=== PATIENT | female | born 1945 | race Caucasian/White ===

== ENCOUNTER → 2017-07-08 14:41 | Outpatient (CLI) | payer MEDICARE, OTHER, SELFPAY ==
--- NOTE | 2017-07-08 14:45 | BI_ITS ---
MAMMOGRAPHY - BILATERAL SCREENING REASON FOR EXAM: Female, 72 years old. Routine annual screening examination. PERTINENT HISTORY: Sister with breast cancer. Grandmother with breast cancer. TECHNIQUE: Digital bilateral breast sandra (3D mammographic acquisition) in the CC and MLO projections. 2-D mediolateral oblique (MLO) and craniocaudad (CC) views of both breasts were obtained. CAD: Full Field Digital Mammography with Computer Added Detection was performed. COMPARISON: Comparison is made with prior study dated June 10, 2016 and June 03, 2015. FINDINGS: Breast Composition: There are scattered areas of fibroglandular density. There are no dominant masses or suspicious calcifications. Stable 7.4 mm x 7.5 mm well-defined nodule in the slightly inferior and medial retroareolar region. This was demonstrated to be a small cyst on prior sonogram of the left breast dated June 06, 2015. Stable benign-appearing bilateral axillary lymph nodes. No other significant abnormalities are identified. There has been no significant change since the prior study. BI/SCREENING MAMM (CAD), BILAT IMPRESSION: Stable bilateral screening mammogram. Yearly follow-up mammogram recommended. (A) ASSESSMENT CATEGORY: BIRADS Category 2: Benign. A letter regarding these results will be sent to the patient by the facility within 30 days. Approximately 10% of breast cancers are not detected by mammography. A normal mammogram should not delay biopsy of a clinically suspicious abnormality. [id number] Electronically Signed: Eliot Kerr MD at 8:26 EDT Tel [phone], Service support ,
== END ==
PROVIDERS: Family Provider Family Medicine; PCP Family Medicine; Visit Provider Family Medicine
DX: Z12.31 Encounter for screening mammogram for malignant neoplasm of breast (principal)
CPT/HCPCS: 77063; 77067

== ENCOUNTER → 2017-07-09 10:54 | Outpatient (CLI) | payer MEDICARE, OTHER, SELFPAY ==
[2017-07-09 12:34] LABS: Absolute Lymphocyte Count 4.46 X10^3/ul (0.83-4.51); Absolute Neutrophil Count 4.8 X10^3/uL (2.0-7.7); Basophil# 0.11 X10^3/uL; Eosinophil# 0.62 X10^3/uL; Eosinophils% 5.7 % (0-5); Hematocrit 42.6 % (37-47); Hemoglobin 13.4 g/dl (12.0-15.0); Lymphocyte # 4.46 X10^3/ul (4.0); Lymphocyte % 41.1 % (19-41); Mean Corp Hgb Conc 31.5 g/gl (32-36); Mean Corpuscular Hgb 25.9 pg (27.0-32.0); Mean Corpuscular Volume 82.4 fL (81-99); Mean Platelet Vol. 11.7 fl (6.2-12.0); Monocyte# 0.78 X10^3/uL; Monocyte% 7.2 % (0-10); Neutrophil # 4.84 X10^3/uL (2.7-7.7); Neutrophil % 44.7 % (47-70); Platelet Count 283 K/mm3 (150-450); RBC Distribution Width CV 13.8 % (11.6-14.6); Red Blood Count 5.17 M/mm3 (4.2-5.4); White Blood Count 10.8 K/mm3 (4.4-11.0)
[2017-07-09 12:40] LABS: POSITIVE COUNT NO; POSITIVE DIFFERENTIAL NO; POSITIVE MORPHOLOGY NO
[2017-07-09 12:44] LABS: Microalbumin,Random Urine 8.2 mg/L (NO RANGE EST.); Microalbumin:Creatinine Ratio 5.2 mg/g CRE (<30 mg/g CRE)
[2017-07-09 12:47] LABS: ALB/GLOB Ratio 1.1 RATIO (0.9-2.4); AST(SGOT) 24 U/L (15-37); Alanine Aminotransfer ALT/SGPT 36 U/L (13-56); Albumin, Serum 3.7 g/dL (3.2-5.0); Alkaline Phosphatase 85 U/L (45-117); Anion Gap 9 (5-15); BUN 15 mg/dL (7-18); BUN/Creat Ratio 23.7 RATIO (10-20); Chloride 105 mmol/L (98-107); Cholesterol 137 mg/dL (200); Creatinine, Serum 0.63 mg/dL (0.55-1.02); EST Glomerular Filtration Rate 98 mL/min (>60); Est Glom Filt Rate - Afr Amer 119 mL/min (>60); Globulin 3.4 g/dL (2.2-4.2); Glucose 128 mg/dL (74-106); High Density Lipoprotein 53 mg/dL; Potassium 4.7 mmol/L (3.5-5.1); Protein, Total 7.1 g/dL (6.4-8.2); Sodium Level 141 mmol/L (136-145); T4 Free Direct 1.12 ng/dL (0.76-1.46); Thyroid Stim Hormone (TSH) 2.93 uIU/mL (0.358-3.74); Triglycerides 124 mg/dL; Very Low Density Lipoprotein 25 mg/dL (5-40)
[2017-07-09 16:15] LABS: Hemoglobin A1c 7.4 % (4.2-6.3)
== END ==
PROVIDERS: Family Provider Family Medicine; PCP Family Medicine; Visit Provider Family Medicine
DX: E11.9 Type 2 diabetes mellitus without complications (principal); I10 Essential (primary) hypertension; K76.0 Fatty (change of) liver, not elsewhere classified; R80.9 Proteinuria, unspecified; E03.9 Hypothyroidism, unspecified
CPT/HCPCS: 36415; 80053; 80061; 82043; 82570; 83036; 84439; 84443; 85025

== ENCOUNTER → 2017-07-28 13:13 | Outpatient (CLI) | payer MEDICARE, OTHER, SELFPAY | PROVIDERS: Family Provider Family Medicine; PCP Family Medicine; Visit Provider Family Medicine | DX: N30.01 Acute cystitis with hematuria (principal) | CPT/HCPCS: 87077; 87086; 87088; 87186 ==

== ENCOUNTER → 2017-09-21 14:11 | Outpatient (CLI) | payer MEDICARE, OTHER, SELFPAY ==
--- NOTE | 2017-09-21 14:19 | RAD_ITS ---
STUDY: X-RAY - ABDOMEN/PELVIS REASON FOR EXAM: Female, 72 years old. Left lower quadrant abdominal pain TECHNIQUE: Two AP supine views of the abdomen and pelvis. COMPARISON: None. FINDINGS: Normal visualized lung bases. There is an unremarkable bowel gas pattern. There is no demonstrated free abdominal air. The visualized liver, spleen and kidneys are grossly normal in size and morphology. Normal soft tissue structures. The surgical clips seen in the right upper quadrant. There are diffuse degenerative changes of the visualized lumbar spine. RAD/Abdomen Single View IMPRESSION: Normal x-ray examination of the abdomen and pelvis. Electronically Signed: Trey Leone DO at 14:17 EDT Tel , Service support ,
[2017-09-21 15:55] LABS: Anion Gap 10 (5-15); BUN 10 mg/dL (7-18); BUN/Creat Ratio 13.1 RATIO (10-20); Chloride 104 mmol/L (98-107); Creatinine, Serum 0.76 mg/dL (0.55-1.02); EST Glomerular Filtration Rate 79 mL/min (>60); Est Glom Filt Rate - Afr Amer 96 mL/min (>60); Glucose 126 mg/dL (74-106); Lipase 91 U/L (73-393); Potassium 4.3 mmol/L (3.5-5.1); Sodium Level 142 mmol/L (136-145)
[2017-09-21 16:11] LABS: Absolute Lymphocyte Count 5.44 X10^3/ul (0.83-4.51); Absolute Neutrophil Count 5.7 X10^3/uL (2.0-7.7); Basophil# 0.04 X10^3/uL; Basophil% 0.3 % (0-1); Eosinophil# 1.97 X10^3/uL; Eosinophils% 13.9 % (0-5); Hematocrit 41.9 % (37-47); Hemoglobin 13.1 g/dl (12.0-15.0); Lymphocyte # 5.44 X10^3/ul (4.0); Lymphocyte % 38.4 % (19-41); Mean Corp Hgb Conc 31.3 g/gl (32-36); Mean Corpuscular Hgb 25.7 pg (27.0-32.0); Mean Corpuscular Volume 82.2 fL (81-99); Mean Platelet Vol. 11.6 fl (6.2-12.0); Monocyte# 0.99 X10^3/uL; Neutrophil # 5.66 X10^3/uL (2.7-7.7); Neutrophil % 39.9 % (47-70); Platelet Count 327 K/mm3 (150-450); RBC Distribution Width CV 14.3 % (11.6-14.6); RBC Distribution Width SD 42.2 fl (35.1-43.9); White Blood Count 14.2 K/mm3 (4.4-11.0)
[2017-09-21 16:12] LABS: Differential Indicated SCAN CRITERIA MET; POSITIVE COUNT NO; POSITIVE DIFFERENTIAL YES; POSITIVE MORPHOLOGY NO
[2017-09-21 16:41] LABS: Platelet Estimate ADEQUATE (ADEQ); Red Cell Morphology NORM C+C NORMAL (NORM C&C)
[2017-09-22 14:20] LABS: Pathologist Review Reviewed
== END ==
PROVIDERS: Family Provider Family Medicine; PCP Family Medicine; Visit Provider Family Medicine
DX: R10.814 Left lower quadrant abdominal tenderness (principal)
CPT/HCPCS: 36415; 74018; 80048; 83690; 85025

== ENCOUNTER → 2018-04-14 08:55 | Outpatient (CLI) | payer MEDICARE, OTHER, SELFPAY ==
--- NOTE | 2018-04-14 08:59 | US_ITS ---
STUDY: ULTRASOUND BREAST - RIGHT REASON FOR EXAM: Female, 73 years old. Abnormal screening mammogram. TECHNIQUE: Axial and longitudinal images of the RIGHT breast were performed with a high resolution ultrasound transducer. COMPARISON: Comparison is made with prior mammogram done earlier in the day. FINDINGS: RIGHT Breast: There is an 8 mm x 8 mm x 4 mm cyst at the 12:00 position of the breast. There is also evidence of dilated subareolar ducts. IMPRESSION: 8mm by 8mm by 4 mm cyst at the 12:00 position of the breast. Dilated subareolar ducts. ASSESSMENT CATEGORY: BIRADS Category 2: Benign. A letter regarding these results will be sent to the patient by the facility within 30 days. Electronically Signed: Eliot Usha, at 11:27 EST , Service support , STUDY: ULTRASOUND BREAST - LEFT REASON FOR EXAM: Female, 73 years old. Palpable lump left breast. TECHNIQUE: Axial and longitudinal images of the LEFT breast were performed with a high resolution ultrasound transducer. COMPARISON: Comparison is made with prior mammogram done earlier in the day. FINDINGS: LEFT Breast: The palpable abnormality corresponds to a 1.2 cm x 1.1 cm x 0.6 cm solid/cystic nodule at the 2:00 position of the breast at 12 cm from the nipple. A biopsy is recommended. This also evidence of a 4 mm x 3 mm x 3 mm cyst in the retroareolar 6:00 position of the breast. There is also evidence of a 6 mm x 7 mm x 4 mm cyst at the 9:00 position of the breast at 1 cm from the nipple. US/Breast Limited Unilateral IMPRESSION: The palpable abnormality corresponds to a 1.2 cm x 1.1 cm x 0.6 cm solid/cystic nodule at the 2:00 position of the breast at 12 cm from nipple. A biopsy is recommended. 2 small cysts are also seen. ASSESSMENT CATEGORY: BIRADS Category 4: Suspicious - Biopsy Should Be Considered. A letter regarding these results will be sent to the patient by the facility within 30 days. Electronically Signed: Eliot Kerr, at 11:29 EST , Service support ,
--- NOTE | 2018-04-14 08:59 | BI_ITS ---
MAMMOGRAPHY - BILATERAL DIAGNOSTIC REASON FOR EXAM: Female, 73 years old. Left breast lump. PERTINENT HISTORY: Sister with breast cancer. Grandmother with breast cancer. TECHNIQUE: Digital bilateral breast sandra (3D mammographic acquisition) in the CC and MLO projections. 2-D mediolateral oblique (MLO) and craniocaudad (CC) views of both breasts were obtained. CAD: Full Field Digital Mammography with Computer Added Detection was performed. COMPARISON: Comparison is made with prior study dated July 08, 2017 and June 10, 2016. FINDINGS: Breast Composition: There are scattered areas of fibroglandular density. 6.7 mm x 10 mm well-defined nodule in the retroareolar region of the right breast. Correlation with ultrasound is recommended. The palpable abnormality corresponds to an inhomogeneous 1.8 cm x 1.1 cm nodule in the anterior superior lateral portion of the breast. This was not present on prior study. Correlation with ultrasound is recommended. No other significant abnormalities are identified. BI/DIAG MAMM W/CAD, BILAT IMPRESSION: Well-defined nodular density in the retroareolar region of the right breast as described. Heterogeneous nodule seen in the anterior superior lateral aspect of the left breast corresponding to the palpable abnormality. Correlation with ultrasound is recommended. ASSESSMENT CATEGORY: BIRADS Category 0: Incomplete. Need additional imaging evaluation. A letter regarding these results will be sent to the patient by the facility within 30 days. Approximately 10% of breast cancers are not detected by mammography. A normal mammogram should not delay biopsy of a clinically suspicious abnormality. Electronically Signed: Eliot Kerr, at 11:32 EST , Service support ,
== END ==
PROVIDERS: Family Provider Family Medicine; PCP Family Medicine; Referring Provider Family Medicine; Visit Provider Family Medicine
DX: Z12.31 Encounter for screening mammogram for malignant neoplasm of breast (principal); N63.21 Unspecified lump in the left breast, upper outer quadrant
CPT/HCPCS: 76642; 77062; 77063; 77066; G0279

== ENCOUNTER → 2018-04-19 14:50 | Outpatient (CLI) | payer MEDICARE, OTHER, SELFPAY ==
--- NOTE | 2018-04-19 | BRBX_PTH ---
PATIENT: SANTIAGO ZURITA LOC: [facility] U#:[id number] AGE/SX: 79/F ROOM: RE04/19/[address]: Dr. Susan Lawler MD : 1945 BED: DIS: SPEC #: [id number] RECD: 04/19/18 14:48 STATUS: KINGA DIXIE #: [id number] ESTEFANI: 04/19/18 00:[address]: Susan Lawler DEPT: SURGICAL PATHOLOGY RECD BY: Tylor Neville ENTERED: 04/19/18 14:53 SP TYPE: BREAST BX OTHR DR: Dr. Jovanni Acosta, DO Tissues: Left breast, NOS Procedures: Surgery Specimen Level IV HEADER OPERATION: Ultrasound-guided needle core biopsy left breast PRE-OP DIAGNOSIS: Mass of left breast TISSUE SUBMITTED: Left breast biopsy 2 o'clock, 12 cm from nipple FIXATION TIME: 11 hours MICROSCOPIC DIAGNOSIS Left breast mass, ultrasound-guided core biopsy: Fibrosis, fat necrosis and associated mild chronic inflammation. Fibrocystic change. No evidence of malignancy. See comment. AM:debbie 04/20/18 COMMENT The findings are suggestive of ruptured cyst with associated reparative and reactive change. Clinical correlation is suggested. MICROSCOPIC DESCRIPTION Slides are reviewed. GROSS DESCRIPTION Received in fixative is one container labeled with the patient's name and designated left breast. The specimen consists of multiple fragments of vega-yellow fibroadipose tissue that in aggregate measure 2.5 x 0.5 x 0.1 cm. The entire specimen is submitted in one cassette. / SJ:debbie 04/19/18 TC:3 CPT: 33714
[2018-04-19 09:00] VITALS: BMI 35.6
== END ==
PROVIDERS: Family Provider Family Medicine; PCP Family Medicine; Referring Provider Surgery; Visit Provider Surgery
DX: N63.20 Unspecified lump in the left breast, unspecified quadrant (principal)
CPT/HCPCS: 88305

== ENCOUNTER → 2018-06-23 13:52 | Outpatient (CLI) | payer MEDICARE, OTHER, SELFPAY ==
[2018-04-19 09:00] VITALS: BMI 35.6
--- NOTE | 2018-06-23 14:05 | MRI_ITS ---
STUDY: MRI LUMBAR SPINE WITHOUT CONTRAST REASON FOR EXAM: Female, 73 years old. Low back pain, bilateral radiculopathy TECHNIQUE: Standardized fat and water weighted pulse sequences were obtained in the sagittal and axial planes. COMPARISON: 01/26/2015 MRI lumbar spine FINDINGS: T12-L1: Normal endplates. Normal disc height, hydration and morphology. Normal bilateral facet joints. Normal central canal and bilateral lateral recesses. Normal bilateral intervertebral neural foramina. Normal lumbar lordosis. There is no substantial scoliosis. Normal conus medullaris that terminates at the L1-2: Normal endplates. Normal disc height, hydration and morphology. Mild facet spondylosis Normal central canal and bilateral lateral recesses. Normal bilateral intervertebral neural foramina. L2-3: There is enlarging posterior bulging annulus with new small central subligamentous disc protrusion. There is worsening moderate central canal stenosis with compression on the thecal sac. There is ligamentous hypertrophy and facet degenerative changes. There is borderline right and left foraminal stenosis unchanged L3-4: The stable disc space narrowing with mild broad-based posterior bulging annulus. There is stable mild to moderate central canal stenosis. There is ligamentous hypertrophy and facet degenerative changes. There may be congenitally small central canal. There is borderline right foraminal stenosis unchanged. There is borderline superior left foraminal stenosis unchanged L4-5: There stable posterior bulging annulus. There is stable mild to moderate central canal stenosis. There is moderate facet degenerative change and ligamentous hypertrophy. There may be congenitally small central canal. There is no left foraminal stenosis. There is stable borderline right foraminal stenosis L5-S1: There is disc space narrowing with posterior bulging annulus with no significant central canal stenosis. There are moderate facet degenerative changes and mild ligamentous hypertrophy. There is Stable mild bilateral foraminal stenosis. On prior exam there is likely small inferior disc extrusion which is not seen on this study. Normal visualized sacral ala. Normal visualized paraspinous soft tissue structures. MRI/Spine Lumbar (Routine) IMPRESSION: enlarging posterior bulging annulus at L2-L3 with new small central subligamentous disc protrusion. There is worsening moderate central canal stenosis with compression on the thecal sac. There is ligamentous hypertrophy and facet degenerative changes. There is borderline right and left foraminal stenosis unchanged The spondylosis changes at the other disc levels appear similar other than resolution of a likely small inferior disc extrusion at L5-S1 Electronically Signed: Alexsander Fowler, at 17:34 EDT Tel , Service support ,
== END ==
PROVIDERS: Family Provider Family Medicine; PCP Family Medicine; Referring Provider Anesthesiology Pain Medicine; Visit Provider Anesthesiology Pain Medicine
DX: M51.37 Other intervertebral disc degeneration, lumbosacral region (principal); M54.17 Radiculopathy, lumbosacral region
CPT/HCPCS: 72148

== ENCOUNTER → 2018-07-20 | Outpatient (CLI) | payer MEDICARE, OTHER, SELFPAY ==
[2018-04-19 09:00] VITALS: BMI 35.6
--- NOTE | 2018-07-20 14:06 | BI_ITS ---
MAMMOGRAPHY - UNILATERAL DIAGNOSTIC: LEFT BREAST REASON FOR EXAM: Female, 73 years old. 3 month follow-up following left ultrasound-guided breast biopsy. PERTINENT HISTORY: Sister with breast cancer. Grandmother with breast cancer. TECHNIQUE: Digital unilateral breast sandra (3D mammographic acquisition) in the CC and MLO projections. 2-D mediolateral oblique (MLO) and craniocaudad (CC) views of both breasts were obtained. CAD: Full Field Digital Mammography with Computer Added Detection was performed. COMPARISON: Comparison is made with prior study dated April 06, 2018. FINDINGS: Breast Composition: There are scattered areas of fibroglandular density. There are no dominant masses or suspicious calcifications. Stable 7.9 mm x 8 mm well-defined nodule in the medial retroareolar region of the left breast. A tissue clip marker is seen within a small nodular density in the superior lateral aspect of the left breast at the recent biopsy site. No other significant abnormalities are identified. BI/DIAG MAMM W/CAD, UNILAT IMPRESSION: Stable unilateral diagnostic mammogram. One year follow-up mammogram recommended. (A) ASSESSMENT CATEGORY: BIRADS Category 2: Benign. A letter regarding these results will be sent to the patient by the facility within 30 days. Approximately 10% of breast cancers are not detected by mammography. A normal mammogram should not delay biopsy of a clinically suspicious abnormality. Electronically Signed: Eliot Kerr, at 8:12 EDT , Service support ,
--- NOTE | 2018-07-20 14:07 | US_ITS ---
STUDY: ULTRASOUND BREAST - LEFT REASON FOR EXAM: Female, 73 years old. 3 month follow-up for breast biopsy. TECHNIQUE: Axial and longitudinal images of the LEFT breast were performed with a high resolution ultrasound transducer. COMPARISON: Comparison is made with prior ultrasound of the breasts dated April 14, 2018. FINDINGS: LEFT Breast: Since prior examination, the patient underwent ultrasound-guided breast biopsy of the nodular density at the 2:00 position of the breast at 12 cm from the nipple. The cystic component has resolved. A tissue clip marker is seen within the 1.8 cm x 1.7 cm x 0.5 cm hypoechoic nodule. US/Breast Limited Unilateral IMPRESSION: Status post left breast biopsy with clip placement. ASSESSMENT CATEGORY: BIRADS Category 2: Benign. A letter regarding these results will be sent to the patient by the facility within 30 days. Electronically Signed: Eliot Kerr, at 15:49 EDT , Service support ,
== END | disposition home or self-care (01) ==
PROVIDERS: Family Provider Family Medicine; PCP Family Medicine; Referring Provider Family Medicine; Visit Provider Surgery
DX: N63.21 Unspecified lump in the left breast, upper outer quadrant (principal); Z12.31 Encounter for screening mammogram for malignant neoplasm of breast
CPT/HCPCS: 76642; 77061; 77065; G0279

== ENCOUNTER → 2018-07-25 07:13 | Outpatient (CLI) | payer MEDICARE, OTHER, SELFPAY ==
[2018-04-19 09:00] VITALS: BMI 35.6
[2018-07-25 10:12] LABS: Absolute Lymphocyte Count 4.51 X10^3/ul (0.83-4.51); Absolute Neutrophil Count 5.1 X10^3/uL (2.0-7.7); Basophil# 0.07 X10^3/uL; Basophil% 0.6 % (0-1); Eosinophil# 0.63 X10^3/uL; Eosinophils% 5.7 % (0-5); Hematocrit 42.9 % (37-47); Hemoglobin 13.1 g/dl (12.0-15.0); Lymphocyte # 4.51 X10^3/ul (4.0); Lymphocyte % 40.7 % (19-41); Mean Corp Hgb Conc 30.5 g/gl (32-36); Mean Corpuscular Hgb 24.2 pg (27.0-32.0); Mean Corpuscular Volume 79.3 fL (81-99); Mean Platelet Vol. 11.9 fl (6.2-12.0); Monocyte# 0.79 X10^3/uL; Monocyte% 7.1 % (0-10); Neutrophil # 5.07 X10^3/uL (2.7-7.7); Neutrophil % 45.7 % (47-70); Platelet Count 276 K/mm3 (150-450); RBC Distribution Width CV 15.1 % (11.6-14.6); RBC Distribution Width SD 43.3 fl (35.1-43.9); Red Blood Count 5.41 M/mm3 (4.2-5.4); White Blood Count 11.1 K/mm3 (4.4-11.0)
[2018-07-25 10:24] LABS: Hemoglobin A1c 7.7 % (4.2-6.3)
[2018-07-25 10:30] LABS: POSITIVE COUNT NO; POSITIVE DIFFERENTIAL NO; POSITIVE MORPHOLOGY NO
[2018-07-25 10:33] LABS: ALB/GLOB Ratio 0.9 RATIO (0.9-2.4); AST(SGOT) 16 U/L (15-37); Alanine Aminotransfer ALT/SGPT 31 U/L (13-56); Albumin, Serum 3.5 g/dL (3.2-5.0); Alkaline Phosphatase 80 U/L (45-117); Anion Gap 8 (5-15); BUN 14 mg/dL (7-18); BUN/Creat Ratio 19.2 RATIO (10-20); Calcium,Total 9.9 mg/dL (8.5-10.1); Chloride 103 mmol/L (98-107); Cholesterol 142 mg/dL (200); Creatinine, Serum 0.73 mg/dL (0.55-1.02); EST Glomerular Filtration Rate 83 mL/min (>60); Est Glom Filt Rate - Afr Amer 101 mL/min (>60); Globulin 3.9 g/dL (2.2-4.2); Glucose 99 mg/dL (74-106); High Density Lipoprotein 56 mg/dL; Potassium 3.9 mmol/L (3.5-5.1); Protein, Total 7.4 g/dL (6.4-8.2); Sodium Level 139 mmol/L (136-145); T4 Free Direct 1.14 ng/dL (0.76-1.46); Thyroid Stim Hormone (TSH) 1.56 uIU/mL (0.358-3.74); Triglycerides 140 mg/dL; Very Low Density Lipoprotein 28 mg/dL (5-40)
[2018-07-25 10:53] LABS: Microalbumin,Random Urine < 5.0 mg/L (NO RANGE EST.)
== END ==
PROVIDERS: Family Provider Family Medicine; PCP Family Medicine; Referring Provider Family Medicine; Visit Provider Family Medicine
DX: E11.9 Type 2 diabetes mellitus without complications (principal); I10 Essential (primary) hypertension; E03.9 Hypothyroidism, unspecified
CPT/HCPCS: 36415; 80053; 80061; 82043; 82570; 83036; 84439; 84443; 85025

== ENCOUNTER → 2018-08-04 15:04 | Outpatient (CLI) | payer MEDICARE, OTHER, SELFPAY ==
[2018-04-19 09:00] VITALS: BMI 35.6
--- NOTE | 2018-08-04 15:08 | RAD_ITS ---
HISTORY: neck pain TECHNIQUE: Cervical spine 5 views Number of images including paperwork: 5 COMPARISON: None FINDINGS: VERTEBRAE: No acute fracture. VERTEBRAL ALIGNMENT: No traumatic subluxation. DISKS AND JOINTS: Disc heights are maintained. Small anterior osteophytes. Facet arthropathy. SOFT TISSUES: Unremarkable paraspinous soft tissues. RAD/Cerv Spine 4 or 5 Views IMPRESSION: 1. No acute osseous abnormality. 2. Degenerative changes. at 0625 Reported and signed by: Sue Lassiter MD Electronically Signed: Sue Lassiter MD at 6:24 EDT Tel , Service support ,
== END ==
PROVIDERS: Family Provider Family Medicine; PCP Family Medicine; Referring Provider Anesthesiology Pain Medicine; Visit Provider Anesthesiology Pain Medicine
DX: M54.2 Cervicalgia (principal)
CPT/HCPCS: 72050

== ENCOUNTER 2018-09-08 08:30 | Outpatient (RCR) | payer MEDICARE, OTHER, SELFPAY ==
[2018-04-19 09:00] VITALS: BMI 35.6
--- NOTE | 2018-08-12 09:00 | HP.PTEVAL_ITS ---
Patient's Visit Information SANTIAGO ZURITA is a 73 year old F referred to Physical Therapy by Abdirahman Alvarez MD with a diagnosis of RADICULOPATHY ,CERVICAL SPINE,CERVICAL DISC DEGENERATION. Date of Evaluation: 08/12/18 Physical Therapist: Kee Elliott, PT, Cert MDT, OCS - Visit Plan Frequency: 2x /Week Duration: 4 Weeks Plan: PT INTERVENTION MANUAL THERAPY CERVICAL TRACTION//STM,CERVICAL POSTURAL EX'S,MODALTIES - Subjective Findings: This 73 y/o female presents to physical therapy with neck pain and radicular symptoms. Patient has had neck pain 2 months. Symptoms left cervical radiates to left UT/shoulder. Aggravating factors sitting,turning cervical spine ,lifting gallon of milk,flexion/extension. Patient has parathesia/tingling in arms. C/O dizziness ,denies nausea/ PARR. Patient seen DR Alvarez recommended PT. Patient symptoms affect sleeping.Patient has h/o falls ,patient uses cane for gait . Patient has seen massage therapy. Patient also has h/o back pain and has received epidural injections .Patient pain affects housework tasks such as sweeping and ADLS'. Alleviating factors heat,tramadol.Patient symptoms affects QOL . SOCIAL: retired. VOCATION: - Pain Left Neck Pain Intensity (Out of 10): 6 Pain Intensity Range: 10 - Objective POSTURE: mild posture rounded shoulder. PALPATION: tender UT/levator/paraspinals. NEURO: c/o parathesia/tingling fingers,reflexes C5-6-7 1/3. AROM BUE : WFL. MMT: BUE grossly 4/5 ,shoulder 4-/5. CERVICAL ROM: flexion min loss,lateral flexion/rotaion mod loss ,extension mod/severe - Special Tests C/S Radiculapathy - Left Upper limb tension test: Negative C/S Radiculapathy - Right Upper limb tension test: Negative C/S Radiculapathy - Left Spurlings: Positive C/S Radiculapathy - Right Spurlings: Positive C/S Radiculapathy - Left Cervical distraction: Negative C/S Radiculapathy - Right Cervical distraction: Negative C/S Radiculapathy - Left Relief test: Negative C/S Radiculapathy - Right Relief test: Negative Sharp Festus: Negative Vertebral Artery Test: Negative Alar Ligament Test: Negative - Goals Goal 1:: Independant with HEP Goal Time Frame: 4-6 Weeks Goal 2:: Patient to be Independant with posture for ADL'S Goal Time Frame: 4-6 Weeks Goal 3:: Patient to decrease cervical pain and radiculopathy by 50 % to improve function. Goal Time Frame: 4-6 Weeks Goal 4:: Patient o improve cervical cervical ROM for function of recovery Goal Time Frame: 4-6 Weeks Goal 5:: Patient to improve neck owsestry score by 5 points or greater to improev QOL. Goal Time Frame: 4-6 Weeks - Rehabilitation Potential Physical Therapy Diagnosis: This patient has cervical pain with radiculopathy left UE possible stenosis with pain ,decrease Cervical ROM,impairs ADLS,and function thus beifit from skilled PT. Rehabilitation Potential: Good - Anticipated Interventions Patient/Client Instruction: Educate patient on: Condition, Plan of Care For the Purpose of:: To decrease pain, To increase ROM, To improve ability to perform ADL's, To increase tolerance to activity/condition/position, To improve ability of physical actions for home/community/work/leisure, To improve gait and locomotor functions, To improve health of tissue, To decrease soft tissue restriction, To improve ability to perform tasks related to life management Therapeutic Exercise to Include: Strength training, Postural training, Flexibilty training, Active ROM For the Purpose of:: To decrease pain, To increase ROM, To improve nutrient delivery to tissue, To improve muscle performance and motor function, To increase tolerance to activity/condition/position, To improve health of tissue, To decrease soft tissue restriction, To increase flexibility/ROM, To improve health and function, To improve ability to perform tasks related to life m anagement Manual Therapy Techniques to Include: Soft tissue mobilization Comment: CERVICAL TRACTION For the Purpose of:: To decrease pain, To increase ROM, To increase oxygenation perfusion, To improve health of tissue, To decrease soft tissue restriction, To increase flexibility/ROM TENS: Yes IF ES: Yes Cryotherapy (ice pack, ice massage): Yes Thermo therapy (hot pack): Yes Ultrasound (thermal/non thermal): Yes For the Purpose of:: To decrease pain, To increase ROM, To improve health of tissue, To decrease soft tissue restriction Thank you for the opportunity to evaluate your patient. For Medicare and Medicare HMO plans, please review the plan of care and approve it. It will need to be FAXED BACK to us at [phone] for Medicare purposes. For Medicare only, by signing this I certify the plan of care. Please let me know if there are questions or concerns regarding this plan of care. Physician Signature: Date:
--- NOTE | 2018-10-21 13:07 | HP.PT.NRP ---
HP - Discharge Summary (1) - Patient Information SANTIAGO ZURITA was seen in my office for initial evaluation on 08/12/18. The following Plan of Care was established for this patient: Initial Frequency: 2x /Week Initial Duration: 4 Weeks - Anticipated Interventions Patient/Client Instruction: Educate patient on: Condition, Plan of Care For the Purpose of:: To decrease pain, To increase ROM, To improve ability to perform ADL's, To increase tolerance to activity/condition/position, To improve ability of physical actions for home/community/work/leisure, To improve gait and locomotor functions, To improve health of tissue, To decrease soft tissue restriction, To improve ability to perform tasks related to life management Therapeutic Exercise to Include: Strength training, Postural training, Flexibilty training, Active ROM For the Purpose of:: To decrease pain, To increase ROM, To improve nutrient delivery to tissue, To improve muscle performance and motor function, To increase tolerance to activity/condition/position, To improve health of tissue, To decrease soft tissue restriction, To increase flexibility/ROM, To improve health and function, To improve ability to perform tasks related to life management Manual Therapy Techniques to Include: Soft tissue mobilization Comment: CERVICAL TRACTION For the Purpose of:: To decrease pain, To increase ROM, To increase oxygenation perfusion, To improve health of tissue, To decrease soft tissue restriction, To increase flexibility/ROM TENS: Yes IF ES: Yes Cryotherapy (ice pack, ice massage): Yes Thermo therapy (hot pack): Yes Ultrasound (thermal/non thermal): Yes For the Purpose of:: To decrease pain, To increase ROM, To improve health of tissue, To decrease soft tissue restriction This patient was last seen in our office 09/08/18. Pertinent comments regarding their Physical therapy will appear below: Patient seen for PT for CERVICAL PAIN with focusing on cervical postural ex's,strengthening and modalties. Patient progressing with ROM and decrease pain. Patient is d/c . At this point I will be discontinuing this patient from physical therapy. I would be happy to see this patient again in the future if found appropriate by the physician. Thank you! Kee Elliott, PT, Cert MDT, OCS
== END 2018-09-08 19:00 | disposition home or self-care (01) ==
LOC: PT 08:30
PROVIDERS: Family Provider Family Medicine; PCP Family Medicine; Referring Provider Anesthesiology Pain Medicine; Visit Provider Anesthesiology Pain Medicine
DX: M50.30 Other cervical disc degeneration, unspecified cervical region (principal); M54.12 Radiculopathy, cervical region
CPT/HCPCS: 97035; 97110; 97140; 97162

== ENCOUNTER → 2018-10-12 13:47 | Outpatient (CLI) | payer MEDICARE, OTHER, SELFPAY ==
[2018-04-19 09:00] VITALS: BMI 35.6
--- NOTE | 2018-10-12 13:49 | US_ITS ---
STUDY: ULTRASOUND BREAST - LEFT REASON FOR EXAM: Female, 73 years old. Abnormal screening mammogram. TECHNIQUE: Axial and longitudinal images of the LEFT breast were performed with a high resolution ultrasound transducer. COMPARISON: Comparison is made with prior mammogram done earlier today as well as prior ultrasound of the left breast dated July 20, 2018. FINDINGS: LEFT Breast: At the 2:00 position of the breast at 12 cm from nipple, there is a 7 mm x 11 mm x 3 mm hypoechoic nodule. A tissue clip marker is seen within it. This also evidence of a 6 mm x 7 mm x 4 mm cyst at the 9:00 position breast at 1 cm from nipple. US/Breast Limited Unilateral IMPRESSION: 6 mm x 7 mm x 4 mm cyst at the 9:00 position of the breast about 1 cm from nipple. Stable appearance of the small solid nodule at the 2:00 position of the breast at 12 cm from nipple. A biopsy clip is seen within. ASSESSMENT CATEGORY: BIRADS Category 2: Benign. A letter regarding these results will be sent to the patient by the facility within 30 days. Electronically Signed: Eliot Kerr, at 8:12 EDT , Service support ,
--- NOTE | 2018-10-12 13:54 | BI_ITS ---
MAMMOGRAPHY - UNILATERAL DIAGNOSTIC: LEFT BREAST REASON FOR EXAM: Female, 73 years old. Left ultrasound-guided breast biopsy since prior examination. PERTINENT HISTORY: Sister with breast cancer. Grandmother with breast cancer. Aunt with breast cancer. TECHNIQUE: Digital unilateral breast sandra (3D mammographic acquisition) in the CC and MLO projections. 2-D mediolateral oblique (MLO) and craniocaudad (CC) views of both breasts were obtained. CAD: Full Field Digital Mammography with Computer Added Detection was performed. COMPARISON: Comparison is made with prior mammogram dated April 14, 2018 and July 20, 2018. FINDINGS: Breast Composition: There are scattered areas of fibroglandular density. A tissue clip marker is seen within a 3 mm nodule in the superior lateral aspect of the left breast. Stable appearance of the 6.5 mm well-defined nodule in the medial retroareolar region of the left breast. No other significant abnormalities are identified. BI/DIAG MAMM W/CAD, UNILAT IMPRESSION: Stable unilateral diagnostic mammogram. One year follow-up mammogram recommended. (A) ASSESSMENT CATEGORY: BIRADS Category 2: Benign. A letter regarding these results will be sent to the patient by the facility within 30 days. Approximately 10% of breast cancers are not detected by mammography. A normal mammogram should not delay biopsy of a clinically suspicious abnormality. Electronically Signed: Eliot Kerr, at 8:16 EDT , Service support ,
== END ==
PROVIDERS: Family Provider Family Medicine; PCP Family Medicine; Referring Provider Surgery; Visit Provider Surgery
DX: N63.21 Unspecified lump in the left breast, upper outer quadrant (principal)
CPT/HCPCS: 76642; 77061; 77065; G0279

== ENCOUNTER → 2018-12-31 07:10 | Outpatient (CLI) | payer MEDICARE, OTHER, SELFPAY ==
[2018-04-19 09:00] VITALS: BMI 35.6
--- NOTE | 2018-12-31 07:21 | MRI_ITS ---
STUDY: MRI LUMBAR SPINE WITHOUT CONTRAST REASON FOR EXAM: Female, 73 years old. LOSS OF BOWEL CONTROL -- loss of bowel control since 11/2018, chronic pain low back and bilat legs. TECHNIQUE: Standardized fat and water weighted pulse sequences were obtained in the sagittal and axial planes. COMPARISON: June 23, 2018 FINDINGS: Normal lumbar lordosis. There is no substantial scoliosis. Normal conus medullaris that terminates at the L1 L1-2: There is mild disc space narrowing and endplates spondylosis. There is mild disc bulge and facet arthropathy without significant central canal or foraminal stenosis. There is vertebral hemangioma at L1 L2-3: There is moderate disc space narrowing and endplates spondylosis. There is moderate disc bulge with slightly decreased central protrusion with improved mild central canal stenosis. There is bilateral facet hypertrophy. There is stable mild right and mild left foraminal stenosis. L3-4: There is moderate disc space narrowing and endplates spondylosis. There is mild disc bulge and moderate facet arthropathy with mild central canal stenosis. There is mild right and mild left foraminal stenosis. Findings are stable since the prior examination L4-5: There is moderate disc space narrowing and endplates spondylosis. There is severe facet arthropathy with minimal grade 1 anterolisthesis and disc osteophyte complex asymmetric to the right with moderate right foraminal stenosis. There is mild central canal stenosis. There is no left foraminal stenosis. Findings are stable since the prior examination L5-S1: There is moderate disc space narrowing and endplates spondylosis. There is moderate disc osteophyte complex and facet arthropathy without significant central canal stenosis. There is moderate right and moderate left foraminal stenosis. Findings are stable since the prior examination Normal visualized sacral ala. MRI/Spine Lumbar (Routine) IMPRESSION: L2/L3: Decrease central protrusion with improved central canal stenosis. Otherwise stable multilevel degenerative changes. Electronically Signed: Genesis Lara MD at 16:16 EST Tel , Service support ,
== END ==
PROVIDERS: Family Provider Family Medicine; PCP Family Medicine; Referring Provider Anesthesiology Pain Medicine; Visit Provider Anesthesiology Pain Medicine
DX: M51.37 Other intervertebral disc degeneration, lumbosacral region (principal); M54.17 Radiculopathy, lumbosacral region; R15.9 Full incontinence of feces
CPT/HCPCS: 72148

== ENCOUNTER → 2019-01-25 14:54 | Outpatient (CLI) | payer MEDICARE, OTHER, SELFPAY ==
[2019-01-17 13:06] VITALS: BMI 34.0
--- NOTE | 2019-01-25 14:56 | ECHOCS_ITS ---
Reason For Study: PRE-OPERATIVE Procedure This was a 2D Doppler, Color Flow transthoracic echocardiogram. The study was technically difficult. Exam performed in department. Left Ventricle Normal size and thickness. The estimated ejection fraction is 65 %. Stage 1 diastolic dysfunction. No regional wall motion abnormalities noted. Right Ventricle Normal size and thickness. Normal systolic function. Atria Normal left atrium. Normal right atrium. Normal atrial septum. Mitral Valve The mitral valve is structurally normal. No prolapse or stenosis seen. Tricuspid Valve Normal tricuspid valve. Trivial tricuspid valve insufficiency. Right ventricular systolic pressure estimated to be 23 mmHg. Aortic Valve Trisinus/trileaflet aortic valve. The aortic valve is not well visualized. Pulmonic Valve Normal pulmonic valve. Trivial pulmonic valve insufficiency. Great Vessels Normal aortic root. Mild atherosclerosis of the aortic arch. Normal inferior vena cava. Inferior vena cava collapse with sniff. Pericardium/Pleural No pericardial effusion. Medication 22 gauge I.V. with prn adaptor inserted into left arm. Diluted definity 4ml given slow IV push to enhance endocardial definition. MMode/2D Measurements & Calculations LVIDd: 3.2 cm IVSd: 0.93 cm LAV(MOD-bp): 37.0 ml LVIDs: 2.1 cm LVPWd: 1.0 cm RVDd: 3.3 cm FS: 33.0 % LAV(MOD-bp) Indexed: 19.4 ml/m2 LAV(MOD-sp2): 42.6 ml LAV(MOD-sp4): 29.6 ml SV(MOD-sp4): 48.4 ml SV(sp4-el): 51.8 ml LVAd ap4: 26.3 cm2 EDV(MOD-sp4): 78.2 ml EDV(sp4-el): 82.5 ml LVAs ap4: 13.6 cm2 ESV(MOD-sp4): 29.7 ml ESV(sp4-el): 30.7 ml EF(MOD-sp4): 62.0 % EF(sp4-el): 62.8 % LA A4 area: 12.7 cm2 RA A4 area: 11.9 cm2 Time Measurements MV dec time: 0.34 sec Doppler Measurements & Calculations MV E max vasquez: 71.3 cm/sec Lat Peak E' Vasquez: 11.6 cm/sec Med Peak E' Vasquez: 11.1 cm/sec MV A max vasquez: 105.3 cm/sec E/E' lat: 6.1 E/E' med: 6.4 MV E/A: 0.68 Ao V2 max: 152.1 cm/sec LV V1 max: 113.1 cm/sec PA V2 max: 99.1 cm/sec Ao max P.3 mmHg LV V1 max P.1 mmHg TR max vasquez: 214.9 cm/sec TR max P.5 mmHg Interpretation Summary The estimated ejection fraction is 65 %. Stage 1 diastolic dysfunction. Trivial tricuspid valve insufficiency. Right ventricular systolic pressure estimated to be 23 mmHg. The study was technically difficult. Contrast injection was performed. There is no comparison study available. Ordering Physician: Escobar Mcbride Referring Physician: JAMIL ROBLES Performed By: Alona Desouza RDCS
== END ==
PROVIDERS: Family Provider Family Medicine; PCP Family Medicine; Referring Provider Internal Medicine Cardiovascular Disease; Visit Provider Internal Medicine Cardiovascular Disease
DX: Z01.810 Encounter for preprocedural cardiovascular examination (principal); R07.9 Chest pain, unspecified; I10 Essential (primary) hypertension
CPT/HCPCS: 93306; Q9957; C8929

== ENCOUNTER → 2019-01-26 08:27 | Outpatient (CLI) | payer MEDICARE, OTHER, SELFPAY ==
[2019-01-17 13:06] VITALS: BMI 34.0
--- NOTE | 2019-01-26 08:29 | STEWCON_ITS ---
Reason For Study: Pre-Operative Stress Results Protocol: Dobutamine Stress Echo With Definity Maximum Predicted HR: 147 bpm Target HR: 125 bpm % Maximum Predicted HR: 89 % DurationHeart Rate Stage (mm:ss) (bpm) BP Comment Baseline 67 116/72No Chest Pain; 4 ML Diluted Definity Given DSE 10 MCG 3:00 71 108/68No Chest Pain DSE 20 MCG 3:00 120 114/55No Chest Pain DSE 30 MCG 2:11 131 99/52 No Chest Pain Recovery 85 116/70No Chest Pain Stress Duration: 8:11 mm:ss Maximum Stress HR: 131 bpm METS: 1 Baseline Echocardiogram Findings The estimated ejection fraction is 65 %. Stress Echo Wall motion Data Resting WM Intermediate WM Stress WM Resting Wall Motion Wall Motion Stress No regional wall motion No regional wall motion abnormalities noted. abnormalities noted. EKG Data The baseline ECG displays normal sinus rhythm. The patient was titrated from 10 mcg to a maximun of 30 mcg of dobutamine during the stress. The maximum heart rate attained was 137 beats per minute. This was 93% of maximum predicted heart rate. During dobutamine infusion, there were no ST or T wave changes noted to suggest ischemia. No clinical angina was noted. Interpretation Summary The estimated ejection fraction is 65 %. Normal, adequate, dobutamine echocardiogram. Negative for ischemia by EKG and echocardiographic criteria. No anginal symptoms noted. Rare PVC noted. Appropriate blood pressure response to dobutamine. Final LVEF is 75%. Test terminated due to the attainment of target heart rate. Patient tolerated the procedure well. No complications. Decreased sensitivity due to poor echo windows requiring Definity agent. The study was technically difficult. Contrast injection was performed. Ordering Physician: Escobar Mcbride Referring Physician: Jovanni Acosta D.O. Performed By: Radha Colvin RDCS
== END ==
PROVIDERS: Family Provider Family Medicine; PCP Family Medicine; Referring Provider Internal Medicine Cardiovascular Disease; Visit Provider Internal Medicine Cardiovascular Disease
DX: Z01.810 Encounter for preprocedural cardiovascular examination (principal); R07.9 Chest pain, unspecified; I10 Essential (primary) hypertension
CPT/HCPCS: 93017; 93350; J7040; Q9957; A4216; C8928

== ENCOUNTER 2019-02-03 16:25 | Inpatient (IN) | payer MEDICARE, OTHER, SELFPAY ==
[2019-01-17 13:06] VITALS: BMI 34.0
[2019-02-03 16:47] VITALS: BP 141/71; PULSE 73; RESP 20; TEMP 36.4; O2SAT 91; BMI 34.9
--- NOTE | 2019-02-03 19:22 | HP.PCM_ITS ---
Problem List (1) Debility Status: Acute (2) Hearing loss Status: Chronic (3) Spondylolisthesis, lumbar region Status: Chronic (4) Osteoarthritis Status: Chronic (5) Weakness of both legs Status: Chronic (6) GERD (gastroesophageal reflux disease) Status: Chronic (7) Depression Status: Chronic (8) Anxiety Status: Chronic (9) Anemia Status: Chronic (10) Hypothyroidism Status: Chronic (11) Diabetes mellitus Status: Chronic (12) Hyperlipidemia Status: Chronic (13) Angina pectoris Status: Chronic History of Present Illness Date of Admission: 02/03/19 Chief Complaint: Here for rehabilitation, strengthening, prior to discharge home with . The patient is a 74 year old Female with below past medical history with low back pain for years, getting worse over the past 4 months. Pain is intermittent sharp, muscle spasms aggravated by any movement, Patient reports right greater than left leg weakness, denies leg pain or numbness. Patient reports falls related to leg weakness, most recent 4 weeks ago. Patient has had multiple epidural steroid injections which initially helped, but no longer dose. Patient takes Braggs, Gabapentin, Tramadol, Cyclobenzaprine, Pain 4/10 currently, 9/10 at its worse. 01/30/2019 Dr. Domenico Scott performed bilateral posterior microdecompression L2- 3, L3-4, L4-5, fusion and instrumentation L4-5, local graft, bone graft substitute for diagnosis spondylolisthesis at L4-5 level. Postoperative course uncomplicated, but patient needs more care than her can provide at home. 02/03/2019 Admit to TCU with debility, here for rehabilitation, strengthening, prior to discharge home with . Past Medical History Past Medical History (Chronic Problems): Chronic Problems (Last Reviewed 01/17/19 @ 13:06 by Isis Valdovinos) Hearing loss (Chronic) Spondylolisthesis, lumbar region (Chronic) Osteoarthritis (Chronic) Weakness of both legs (Chronic) GERD (gastroesophageal reflux disease) (Chronic) Depression (Chronic) Anxiety (Chronic) Anemia (Chronic) Hypothyroidism (Chronic) Diabetes mellitus (Chronic) Hyperlipidemia (Chronic) Angina pectoris (Chronic) Essential hypertension (Chronic) Medical History: Medical History (Last Reviewed 01/17/19 @ 13:06 by Isis Valdovinos) Chest pain (Acute) R07.9 Essential hypertension (Chronic) I10 Preop cardiovascular exam (Acute) Z01.810 Abnormal mammogram of right breast R92.8 Arthritis M19.90 DDD (degenerative disc disease), lumbar M51.36 Depression with anxiety F41.8 Diabetes E11.9 GERD (gastroesophageal reflux disease) K21.9 History of back problems Hypothyroidism E03.9 Lumbar stenosis with neurogenic claudication M48.062 Peripheral neuropathy G62.9 Spondylolisthesis at L4-L5 level M43.16 Thyroid disease E07.9 Acute respiratory failure with hypoxia J96.01 URI (upper respiratory infection) (Resolved) J06.9 Allergies prednisone Allergy (Intermediate, Verified 01/17/19 13:20) Itching,hives codeine Allergy (Verified 01/17/19 13:20) Agitation prednisolone Allergy (Verified 01/17/19 13:20) Hives Sulfa (Sulfonamide Antibiotics) Allergy (Verified 01/17/19 13:20) Hives BEE Allergy (Uncoded 10/14/18 09:05) Anaphylaxis Home Medications: Ambulatory Orders Medication Instructions Recorded Diltiazem HCl [Diltiazem 24Hr ER] 300 mg PO QHS 12/15/13 Levothyroxine [Synthroid] 150 mcg PO DAILY 12/15/13 Sertraline HCl [Zoloft] 100 mg PO DAILY 12/15/13 Omeprazole [Prilosec] 40 mg PO DAILY 07/25/16 metFORMIN HCl [Glucophage] 1,000 mg PO BIDCM 07/25/16 cyclobenzaprine 10 mg tablet 10 mg PO TID PRN 01/16/19 glimepiride 4 mg tablet 4 mg PO DAILY tab 01/16/19 lisinopril 5 mg tablet 5 mg PO DAILY tab 01/16/19 ondansetron 4 mg disintegrating 4 mg PO DAILY PRN tab 01/16/19 tablet tramadol 50 mg tablet 50 mg PO TID PRN PRN tab 01/16/19 gabapentin 100 mg capsule 100 mg PO TID cap 01/17/19 Inulin [Fiber Gummies] 2 gm PO DAILY 02/03/19 Braggs 5-325 Tablet 1 tab PO Q6H PRN PRN 02/03/19 Oxycodone [Oxyir] 5 mg PO Q6H PRN PRN 02/03/19 Surgical History: Surgical History (Last Reviewed 01/17/19 @ 13:06 by Isis Valdovinos) History of bilateral cataract extraction Z98.41, Z98.42 History of cholecystectomy Z90.49 History of total thyroidectomy E89.0 H/O abdominal hysterectomy Z90.710 History of arthroscopic knee surgery Z98.890 History of bunionectomy of both great toes Z98.890 History of excision of pilonidal cyst Z98.890 History of hernia repair Z98.890, Z87.19 History of tonsillectomy Z90.89 Surgical History: cataract - Bilateral., cholecystectomy, herniorrhaphy - umbilical., hysterectomy - Total abdominal., - - Pilonidal abscess 1966, Lipoma top of head 1993, Left breast biopsy 2017, Thyroidectomy 2013, Lumbar spine surgery 01/30/2019. 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 Maternal Family History: Family History (Last Reviewed 01/17/19 @ 13:06 by Isis Valdovinos) Mother Breast cancer Heart disease Alzheimer's disease Sister Breast cancer Thyroid disorder Grandmother Breast cancer Seizures Uncle Diabetes Father Hypertension Ruptured aortic aneurysm History Items: - - Alzheimer's Disease. Review of Systems Constitutional: Denies: Chills, Fever, Weight Change HEENT: Denies: Head Aches, Sinus Congestion, Sinus Drainage Cardiovascular: Denies: Chest Pain, Palpitations Respiratory: Denies: Cough, Shortness of breath at rest, Sputum production Gastrointestinal: Denies: Abdominal Pain, Nausea, Vomiting Genitourinary: Denies: Dysuria Musculoskeletal: Denies: Joint Pain, Joint Tenderness Skin: Denies: Rash, Wounds Neurological: Denies: Numbness, Tingling, Focal weakness Psychiatric: Denies: Anxiety, Depression, Homicidal Ideations, Suicidal Ideations Hematologic/ Lymphatic: Denies: Easy Bruising, Easy Bleeding VTE Information - Inpt Only VTE Present on Admission: No VTE Mechan Device Prophylaxis: Knee High ELEONORA Hose VTE Pharm Prophylaxis ordered?: Yes Patient Problems: Active and Suspected Problems (Last Reviewed 01/17/19 @ 13:06 by Isis Valdovinos) Debility (Acute) - Physical Exam Vitals/I&O's: Vital Signs Temp Pulse Resp BP Pulse Ox 97.5 F L 73 20 H 141/71 H 91 02/03/19 16:47 02/03/19 16:47 02/03/19 16:47 02/03/19 16:47 02/03/19 16:47 Oxygen Delivery Method Room Air Weight: 89.448 kg Body Mass Index (BMI) 34.9 Finger Stick Blood Glucose 166 General: Alert, Oriented x3, Cooperative HEENT: Atraumatic, PERRLA, EOMI, Normocephalic Neck: Supple, No JVD, Negative Carotid Bruits Lungs: Clear to auscultation, Normal air movement Cardiovascular: Regular rate, No murmurs Abdomen: Bowel Sounds Present, Soft, Non Tender Extremities: No edema, Capillary Refill Less than 3 Seconds Skin: No rashes, No breakdown Musculoskeletal: No Tenderness to Palpation of Joints or Extremities Neurological: Cranial nerves II-XII grossly intact Psych/Mental Status: Normal Affect, Appropriate Current Medications Hydrocodone Bitart/Acetaminophen (Braggs 5mg-325mg) 1 tablet PO Q6H PRN PRN PRN Reason: Pain Score 4-5/10 Cyclobenzaprine HCl (Flexeril) 10 mg PO TID PRN PRN PRN Reason: muscle spasms Diltiazem HCl (Cardizem Cd) 300 mg PO QHS [facility] Gabapentin (Neurontin) 100 mg PO TID [facility] Glimepiride (Amaryl) 4 mg PO DAILY@0745 [facility] Levothyroxine Sodium (Synthroid) 150 mcg PO DAILY [facility] Lisinopril (Zestril) 5 mg PO DAILY [facility] Metformin HCl (Glucophage) 1,000 mg PO BIDCM [facility] Ondansetron HCl (Zofran Odt) 4 mg PO DAILY PRN PRN Reason: NAUSEA Oxycodone HCl (Oxyir) 5 mg PO Q6H PRN PRN PRN Reason: Pain Score 6-10/10 Pantoprazole Sodium (Protonix) 40 mg PO DAILY [facility] Sertraline HCl (Zoloft) 100 mg PO DAILY [facility] Tramadol HCl (Ultram) 50 mg PO TID PRN PRN PRN Reason: Pain Score 1-3/10 Tuberculin PPD (Tubersol, Aplisol, Ppd) 5 tu ID X1 ONE Stop: 02/04/19 10:01 Tuberculin PPD (Tubersol, Aplisol, Ppd) 5 tu ID X1 ONE Stop: 02/11/19 10:01 Assessment/Plan All Active Problems (Last Reviewed 01/17/19 @ 13:06 by Isis Valdovinos) Debility (Acute) Chest pain (Acute) Preop cardiovascular exam (Acute) URI (upper respiratory infection) (Resolved) 74 year old female with below past medical history hospitalized for lumbar spine surgery 01/30/[address] Domenico Scott, admitted to TCU with debility, here for rehabilitation, strengthening, prior to discharge home with . * Debility - PT/OT. * Pain - Tramadol 50MG 1 tablet Q6H PRN pain (1-3), Braggs 5/325MG 1 tablet Q6H PRN pain (4-5), Oxycodone 10MG Q4H PRN pain (6-10) * Bowel - Miralax 17GM daily, Senna/colace 2 tablets BID, Dulcolax 10MG daily PRN. * Adult immunization - Administer Prevnar 13, Pneumovax 23, Fluzone as necessary. * DVT prophylaxis - Lovenox 40MG SC daily. * Muscle spasm - Flexeril 10MG TID PRN. * Hypertension - Diltiazem CD 300MG QHS, Lisinopril 5MG daily. * Neuropathic pain - Gabapentin 100MG TID. * Diabetes Mellitus II - Metformin 1000MG BID, Glimepiride 4MG daily, Monitor blood sugars. * Hypothyroidism - Levothyroxine 150MCG daily. * Nausea - Zofran 4MG daily PRN. * GERD - Pantoprazole 40MG daily.
[2019-02-03] MEDS: oxyCODONE 5 MG Tablet 10 MG PO (20:00)
[2019-02-03 20:03] VITALS: O2SAT 94
[2019-02-03] MEDS: dilTIAZem CD 300 MG Capsule PO (21:29)
[2019-02-03 21:30] LABS: Bedside Glucose 163 mg/dL (70-110)
[2019-02-03] MEDS: Gabapentin 100 MG Capsule PO (21:30)
[2019-02-04] MEDS: oxyCODONE 5 MG Tablet 10 MG PO ×4 (04:02→21:55)
[2019-02-04] MEDS: Levothyroxine 150 MCG Tablet PO (06:23)
[2019-02-04] MEDS: Enoxaparin 40 MG/0.4 ML Syringe SC (06:23)
[2019-02-04] MEDS: Gabapentin 100 MG Capsule PO ×3 (06:24→21:26)
[2019-02-04] MEDS: Sertraline 100 MG Tablet PO (06:24)
[2019-02-04] MEDS: Pantoprazole Sodium 40 MG Tablet PO (06:24)
[2019-02-04] MEDS: Senna/Docusate Sodium 1 Tablet 2 TABLET PO ×2 (06:24→17:22)
[2019-02-04] MEDS: Lisinopril 5 MG Tablet PO (06:24)
[2019-02-04] MEDS: Polyethylene Glycol 3350 17 GM PACKET PO (06:26)
[2019-02-04 06:36] LABS: Bedside Glucose 155 mg/dL (70-110)
[2019-02-04 08:05] LABS: Basophil# 0.08 X10^3/uL; Basophil% 0.8 % (0-1); Eosinophil# 0.45 X10^3/uL; Eosinophils% 4.6 % (0-5); Hematocrit 36.5 % (37-47); Hemoglobin 10.9 g/dL (12.0-15.0); Lymphocyte % 33.8 % (19-41); Mean Corp Hgb Conc 29.9 g/dL (32-36); Mean Corpuscular Hgb 24.9 pg (27.0-32.0); Mean Corpuscular Volume 83.3 fL (81-99); Mean Platelet Vol. 11.7 fl (6.2-12.0); Monocyte% 9.2 % (0-10); NRBC Flagged by Analyzer 0 % (0-5); Neutrophil # 4.98 X10^3/uL (2.7-7.7); Neutrophil % 51.2 % (47-70); Platelet Count 258 K/mm3 (150-450); RBC Distribution Width CV 14.3 % (11.6-14.6); RBC Distribution Width SD 42.8 fl (35.1-43.9); Red Blood Count 4.38 M/mm3 (4.2-5.4); White Blood Count 9.8 K/mm3 (4.4-11.0)
[2019-02-04] MEDS: metFORMIN HCl 1,000 MG Tablet 1000 MG PO ×2 (08:13→17:22)
[2019-02-04] MEDS: Glimepiride 4 MG Tablet PO (08:13)
[2019-02-04 08:33] LABS: Anion Gap 6 (5-15); BUN 13 mg/dL (7-18); BUN/Creat Ratio 22.5 RATIO (10-20); Calcium,Total 10.1 mg/dL (8.5-10.1); Chloride 106 mmol/L (98-107); Creatinine, Serum 0.58 mg/dL (0.55-1.02); EST Glomerular Filtration Rate 109 mL/min (>60); Est Glom Filt Rate - Afr Amer 131 mL/min (>60); Estimated Creatinine Clearance 41.45 ml/min; Glucose 155 mg/dL (74-106); Potassium 3.9 mmol/L (3.5-5.1); Sodium Level 140 mmol/L (136-145)
[2019-02-04] MEDS: Nystatin Powder 15gm Bottle 1 APPLIC TOPICAL ×2 (09:38→21:28)
[2019-02-04 10:56] LABS: Bedside Glucose 131 mg/dL (70-110)
[2019-02-04] MEDS: Tuberculin,Purif.prot.deriv. 50 TU/ML Vial 5 ML ID (11:07)
[2019-02-04] MEDS: traMADol 50 MG Tablet PO (13:19)
[2019-02-04 15:36] VITALS: BP 117/68; PULSE 63; RESP 20; TEMP 37.2; O2SAT 91
[2019-02-04 17:01] LABS: Bedside Glucose 95 mg/dL (70-110)
[2019-02-04 21:21] LABS: Bedside Glucose 147 mg/dL (70-110)
[2019-02-04] MEDS: dilTIAZem CD 300 MG Capsule PO (21:26)
[2019-02-04 21:29] VITALS: PULSE 82
[2019-02-05] MEDS: Polyethylene Glycol 3350 17 GM PACKET PO (04:35)
[2019-02-05] MEDS: Enoxaparin 40 MG/0.4 ML Syringe SC (04:35)
[2019-02-05] MEDS: Lisinopril 5 MG Tablet PO (04:35)
[2019-02-05] MEDS: Gabapentin 100 MG Capsule PO ×3 (04:36→20:42)
[2019-02-05] MEDS: Pantoprazole Sodium 40 MG Tablet PO (04:36)
[2019-02-05] MEDS: Bisacodyl 5 MG Tablet 10 MG PO (04:36)
[2019-02-05] MEDS: Nystatin Powder 15gm Bottle 1 APPLIC TOPICAL ×2 (04:36→20:42)
[2019-02-05] MEDS: Levothyroxine 150 MCG Tablet PO (04:36)
[2019-02-05] MEDS: Senna/Docusate Sodium 1 Tablet 2 TABLET PO ×2 (04:36→17:32)
[2019-02-05] MEDS: Sertraline 100 MG Tablet PO (04:38)
[2019-02-05 06:31] LABS: Bedside Glucose 171 mg/dL (70-110)
[2019-02-05] MEDS: metFORMIN HCl 1,000 MG Tablet 1000 MG PO ×2 (08:11→17:32)
[2019-02-05] MEDS: Iron Polysaccharide Complex 150 MG CAPSULE PO (08:11)
[2019-02-05] MEDS: Glimepiride 4 MG Tablet PO (08:11)
[2019-02-05 08:40] VITALS: PULSE 85; RESP 18; O2SAT 95
--- NOTE | 2019-02-05 08:56 | NURSING ---
PT COMPLAINED TO THIS NURSE OF SLIGHT CHEST PAIN,SORE MOUTH AND SOME BURNING WITH URINATION. REPORTED TO SUZANNE CARDENAS
[2019-02-05] MEDS: oxyCODONE 5 MG Tablet 10 MG PO ×3 (09:35→23:11)
[2019-02-05] MEDS: dilTIAZem CD 300 MG Capsule PO (20:42)
[2019-02-05 20:46] VITALS: BP 150/84; PULSE 83; RESP 18; TEMP 36.8; O2SAT 94
[2019-02-06] MEDS: Enoxaparin 40 MG/0.4 ML Syringe SC (05:42)
[2019-02-06] MEDS: Senna/Docusate Sodium 1 Tablet 2 TABLET PO ×2 (05:43→17:35)
[2019-02-06] MEDS: Lisinopril 5 MG Tablet PO (05:43)
[2019-02-06] MEDS: Pantoprazole Sodium 40 MG Tablet PO (05:43)
[2019-02-06] MEDS: Polyethylene Glycol 3350 17 GM PACKET PO (05:43)
[2019-02-06] MEDS: Levothyroxine 150 MCG Tablet PO (05:43)
[2019-02-06] MEDS: Sertraline 100 MG Tablet PO (05:43)
[2019-02-06] MEDS: Gabapentin 100 MG Capsule PO ×3 (05:43→21:15)
[2019-02-06] MEDS: Nystatin Powder 15gm Bottle 1 APPLIC TOPICAL ×2 (05:45→21:18)
[2019-02-06] MEDS: oxyCODONE 5 MG Tablet 10 MG PO ×4 (05:48→21:17)
[2019-02-06 06:21] LABS: Bedside Glucose 123 mg/dL (70-110)
[2019-02-06] MEDS: Iron Polysaccharide Complex 150 MG CAPSULE PO (10:19)
[2019-02-06] MEDS: Glimepiride 4 MG Tablet PO (10:19)
[2019-02-06] MEDS: metFORMIN HCl 1,000 MG Tablet 1000 MG PO ×2 (10:19→17:35)
--- NOTE | 2019-02-06 14:45 | PHA.CONS_ITS ---
<Sudarshan Rodas Matthew - Last Filed: 02/06/19 14:45> Progress Note - Pharmacy Subjective: TCU Admission Objective: Allergies prednisone Allergy (Intermediate, Verified 01/17/19 13:20) Itching,hives codeine Allergy (Verified 01/17/19 13:20) Agitation prednisolone Allergy (Verified 01/17/19 13:20) Hives Sulfa (Sulfonamide Antibiotics) Allergy (Verified 01/17/19 13:20) Hives BEE Allergy (Uncoded 10/14/18 09:05) Anaphylaxis Current Medications Generic Name Dose Route Start Last Admin Trade Name Freq PRN Reason Stop Dose Admin Bisacodyl 10 mg 02/03/19 19:48 02/05/19 04:36 Dulcolax PO 10 mg DAILY PRN Administration Constipation Cyclobenzaprine HCl 10 mg 02/03/19 17:10 Flexeril PO TID PRN PRN muscle spasms Diltiazem HCl 300 mg 02/03/19 22:00 02/05/19 20:42 Cardizem Cd PO 300 mg QHS ALINE Administration Enoxaparin Sodium 40 mg 02/04/19 06:00 02/06/19 05:42 Lovenox SC 40 mg DAILY@0600 ALINE Administration Gabapentin 100 mg 02/03/19 22:00 02/06/19 13:47 Neurontin PO 100 mg TID ALINE Administration Glimepiride 4 mg 02/04/19 07:45 02/06/19 10:19 Amaryl PO 4 mg DAILY@0745 ALINE Administration Levothyroxine Sodium 150 mcg 02/04/19 06:00 02/06/19 05:43 Synthroid PO 150 mcg DAILY ALINE Administration Lisinopril 5 mg 02/04/19 06:00 02/06/19 05:43 Zestril PO 5 mg DAILY ALINE Administration Metformin HCl 1,000 mg 02/04/19 08:00 02/06/19 10:19 Glucophage PO 1,000 mg BIDCM ALINE Administration Multi-Ingredient Cream 1 applic 02/04/19 22:00 02/05/19 20:41 Eucerin TOPICAL 1 applic 2199 [facility] Administration Protocol Nystatin 1 applic 02/04/19 06:00 02/06/19 05:45 Mycostatin Powder TOPICAL 1 applicatio 0600,2200 [facility] Administration Protocol Ondansetron HCl 4 mg 02/03/19 17:10 Zofran Odt PO DAILY PRN NAUSEA Oxycodone HCl 10 mg 02/03/19 19:49 02/06/19 14:24 Oxyir PO 10 mg Q4H PRN Administration Pain Score 6-10/10 Pantoprazole Sodium 40 mg 02/04/19 06:00 02/06/19 05:43 Protonix PO 40 mg DAILY ALINE Administration Polyethylene Glycol 17 gm 02/04/19 06:00 02/06/19 05:43 Miralax PO 17 gm DAILY ALINE Administration Polysaccharide Iron Complex 150 mg 02/05/19 08:00 02/06/19 10:19 Ferrex 150 PO 150 mg DAILYCM ALINE Administration Senna/Docusate Sodium 2 tablet 02/04/19 06:00 02/06/19 05:43 Senokot-S, Rosaura-Colace PO 2 tablet BID ALINE Administration Sertraline HCl 100 mg 02/04/19 06:00 02/06/19 05:43 Zoloft PO 100 mg DAILY ALINE Administration Tramadol HCl 50 mg 02/05/19 19:09 Ultram PO Q6H PRN PRN Pain Score 4-5/10 Tuberculin PPD 5 tu 02/11/19 10:00 Tubersol, Aplisol, Ppd ID 02/11/19 10:01 X1 ONE Problem List (Last Reviewed 01/17/19 @ 13:06 by Isis Valdovinos) Debility (Acute) Hearing loss (Chronic) Spondylolisthesis, lumbar region (Chronic) Osteoarthritis (Chronic) Weakness of both legs (Chronic) GERD (gastroesophageal reflux disease) (Chronic) Depression (Chronic) Anxiety (Chronic) Anemia (Chronic) Hypothyroidism (Chronic) Diabetes mellitus (Chronic) Hyperlipidemia (Chronic) Angina pectoris (Chronic) Vital Signs Temp Pulse Resp BP Pulse Ox 98.2 F 83 18 150/84 H 94 02/05/19 20:46 02/05/19 20:46 02/05/19 20:46 02/05/19 20:46 02/05/19 20:46 Oxygen Flow Rate (L/min) 93 Oxygen Delivery Method Room Air Weight: 89.448 kg Body Mass Index (BMI) 34.9 Finger Stick Blood Glucose 166 Sodium 140 mmol/L (136-145) 02/04/19 07:49 Potassium 3.9 mmol/L (3.5-5.1) 02/04/19 07:49 Chloride 106 mmol/L (98-107) 02/04/19 07:49 Carbon Dioxide 28.0 mmol/L (21.0-32.0) 02/04/19 07:49 Anion Gap 6 (5-15) 02/04/19 07:49 BUN 13 mg/dL (7-18) 02/04/19 07:49 Creatinine 0.58 mg/dL (0.55-1.02) 02/04/19 07:49 Est GFR (MDRD) Af Amer 131 mL/min (>60) 02/04/19 07:49 Est GFR (MDRD) Non-Af 109 mL/min (>60) 02/04/19 07:49 BUN/Creatinine Ratio 22.5 RATIO (10-20) H 02/04/19 07:49 Glucose 155 mg/dL (74-106) H 02/04/19 07:49 Assessment/Plan: 1) Pain Gabapentin, cyclobenzaprine for spasms, tramadol for pain 4-5, oxycodone for pain 6-10. Continue to monitor daily pain scores, prn medication use. 2) HTN Diltiazem, lisinopril. Continue to monitor BP/HR, renal function, electrolytes. 3) DM2 Glimepiride, metformin. Continue to monitor renal function, BGT. 4) DVT PPx Enoxaparin. Continue to monitor for bleeding/clot. 5) Hypothyroidism Levothyroxine. Continue to monitor s/s hyper/hypothyroidism. 6) GI Pantoprazole, ondansetron prn for nausea. Continue to monitor prn medication use, s/s GI distress. 7) Nutrition Fe. Continue to monitor clinically. Psychotropic Medications: 8) Depression Sertraline. Continue to monitor s/s depression. Unnecessary Medications: None Bowel Regimen: 9) Senna/s, PEG, bisacodyl prn. Continue to monitor prn medication use, for constipation/diarrhea. Date of Note:: 02/06/19 - Provider Comments Provider responsibility: Provider responsible to enter orders to implement recommendations <Bakari Jordan Chi - Last Filed: 02/07/19 08:40> Progress Note - Pharmacy Subjective: [] Objective: Allergies prednisone Allergy (Intermediate, Verified 01/17/19 13:20) Itching,hives codeine Allergy (Verified 01/17/19 13:20) Agitation prednisolone Allergy (Verified 01/17/19 13:20) Hives Sulfa (Sulfonamide Antibiotics) Allergy (Verified 01/17/19 13:20) Hives BEE Allergy (Uncoded 10/14/18 09:05) Anaphylaxis Current Medications Generic Name Dose Route Start Last Admin Trade Name Freq PRN Reason Stop Dose Admin Bisacodyl 10 mg 02/03/19 19:48 02/05/19 04:36 Dulcolax PO 10 mg DAILY PRN Administration Constipation Cyclobenzaprine HCl 10 mg 02/03/19 17:10 Flexeril PO TID PRN PRN muscle spasms Diltiazem HCl 300 mg 02/03/19 22:00 02/06/19 21:15 Cardizem Cd PO 300 mg QHS [facility] Administration Enoxaparin Sodium 40 mg 02/04/19 06:00 02/07/19 06:04 Lovenox SC 40 mg DAILY@0600 ALINE Administration Gabapentin 100 mg 02/03/19 22:00 02/07/19 06:04 Neurontin PO 100 mg TID ALINE Administration Glimepiride 4 mg 02/04/19 07:45 02/06/19 10:19 Amaryl PO 4 mg DAILY@0745 [facility] Administration Levothyroxine Sodium 150 mcg 02/04/19 06:00 02/07/19 06:04 Synthroid PO 150 mcg DAILY ALINE Administration Lisinopril 5 mg 02/04/19 06:00 02/07/19 06:05 Zestril PO 5 mg DAILY ALINE Administration Metformin HCl 1,000 mg 02/04/19 08:00 02/06/19 17:35 Glucophage PO 1,000 mg BIDCM ALINE Administration Multi-Ingredient Cream 1 applic 02/04/19 22:00 02/06/19 21:18 Eucerin TOPICAL 1 applic 2199 [facility] Administration Protocol Nystatin 1 applic 02/04/19 06:00 02/07/19 06:07 Mycostatin Powder TOPICAL 1 applicatio 0600,2200 [facility] Administration Protocol Ondansetron HCl 4 mg 02/03/19 17:10 Zofran Odt PO DAILY PRN NAUSEA Oxycodone HCl 10 mg 02/03/19 19:49 02/07/19 06:03 Oxyir PO 10 mg Q4H PRN Administration Pain Score 6-10/10 Pantoprazole Sodium 40 mg 02/04/19 06:00 02/07/19 06:05 Protonix PO 40 mg DAILY ALINE Administration Polyethylene Glycol 17 gm 02/04/19 06:00 02/07/19 06:03 Miralax PO Not Given DAILY ALINE Polysaccharide Iron Complex 150 mg 02/05/19 08:00 02/06/19 10:19 Ferrex 150 PO 150 mg DAILYCM ALINE Administration Senna/Docusate Sodium 2 tablet 02/04/19 06:00 02/07/19 06:03 Senokot-S, Rosaura-Colace PO Not Given BID ALINE Sertraline HCl 100 mg 02/04/19 06:00 02/07/19 06:05 Zoloft PO 100 mg DAILY ALINE Administration Tramadol HCl 50 mg 02/05/19 19:09 Ultram PO Q6H PRN PRN Pain Score 4-5/10 Tuberculin PPD 5 tu 02/11/19 10:00 Tubersol, Aplisol, Ppd ID 02/11/19 10:01 X1 ONE Problem List (Last Reviewed 01/17/19 @ 13:06 by Isis Valdovinos) Debility (Acute) Hearing loss (Chronic) Spondylolisthesis, lumbar region (Chronic) Osteoarthritis (Chronic) Weakness of both legs (Chronic) GERD (gastroesophageal reflux disease) (Chronic) Depression (Chronic) Anxiety (Chronic) Anemia (Chronic) Hypothyroidism (Chronic) Diabetes mellitus (Chronic) Hyperlipidemia (Chronic) Angina pectoris (Chronic) Vital Signs Temp Pulse Resp BP Pulse Ox 98.2 F 82 18 148/80 H 95 02/06/19 16:00 02/06/19 16:00 02/06/19 16:00 02/06/19 16:00 02/06/19 16:00 Oxygen Flow Rate (L/min) 93 Oxygen Delivery Method Room Air Weight: 89.448 kg Body Mass Index (BMI) 34.9 Finger Stick Blood Glucose 166 Sodium 140 mmol/L (136-145) 02/04/19 07:49 Potassium 3.9 mmol/L (3.5-5.1) 02/04/19 07:49 Chloride 106 mmol/L (98-107) 02/04/19 07:49 Carbon Dioxide 28.0 mmol/L (21.0-32.0) 02/04/19 07:49 Anion Gap 6 (5-15) 02/04/19 07:49 BUN 13 mg/dL (7-18) 02/04/19 07:49 Creatinine 0.58 mg/dL (0.55-1.02) 02/04/19 07:49 Est GFR (MDRD) Af Amer 131 mL/min (>60) 02/04/19 07:49 Est GFR (MDRD) Non-Af 109 mL/min (>60) 02/04/19 07:49 BUN/Creatinine Ratio 22.5 RATIO (10-20) H 02/04/19 07:49 Glucose 155 mg/dL (74-106) H 02/04/19 07:49 Assessment/Plan: Psychotropic Medications: Unnecessary Medications: Bowel Regimen: - Provider Comments Provider responsibility: Provider responsible to enter orders to implement recommendations Provider Comments to Recommendations by Pharmacy: Agree
[2019-02-06 16:00] VITALS: BP 148/80; PULSE 82; RESP 18; TEMP 36.8; O2SAT 95
[2019-02-06] MEDS: dilTIAZem CD 300 MG Capsule PO (21:15)
[2019-02-07] MEDS: oxyCODONE 5 MG Tablet 10 MG PO ×5 (01:43→23:26)
[2019-02-07] MEDS: Gabapentin 100 MG Capsule PO ×3 (06:04→21:04)
[2019-02-07] MEDS: Levothyroxine 150 MCG Tablet PO (06:04)
[2019-02-07] MEDS: Enoxaparin 40 MG/0.4 ML Syringe SC (06:04)
[2019-02-07] MEDS: Sertraline 100 MG Tablet PO (06:05)
[2019-02-07] MEDS: Pantoprazole Sodium 40 MG Tablet PO (06:05)
[2019-02-07] MEDS: Lisinopril 5 MG Tablet PO (06:05)
[2019-02-07] MEDS: Nystatin Powder 15gm Bottle 1 APPLIC TOPICAL ×2 (06:07→21:06)
[2019-02-07 06:31] LABS: Bedside Glucose 122 mg/dL (70-110)
[2019-02-07] MEDS: metFORMIN HCl 1,000 MG Tablet 1000 MG PO ×2 (08:46→17:04)
[2019-02-07] MEDS: Glimepiride 4 MG Tablet PO (08:47)
[2019-02-07] MEDS: Iron Polysaccharide Complex 150 MG CAPSULE PO (08:48)
[2019-02-07 15:56] VITALS: BP 123/60; PULSE 86; RESP 18; TEMP 36.7; O2SAT 91
[2019-02-07] MEDS: Senna/Docusate Sodium 1 Tablet 2 TABLET PO (17:04)
[2019-02-07] MEDS: dilTIAZem CD 300 MG Capsule PO (21:04)
[2019-02-08] MEDS: Enoxaparin 40 MG/0.4 ML Syringe SC (06:15)
[2019-02-08] MEDS: Gabapentin 100 MG Capsule PO ×3 (06:16→20:35)
[2019-02-08] MEDS: Pantoprazole Sodium 40 MG Tablet PO (06:16)
[2019-02-08] MEDS: Sertraline 100 MG Tablet PO (06:16)
[2019-02-08] MEDS: Senna/Docusate Sodium 1 Tablet 2 TABLET PO (06:16)
[2019-02-08] MEDS: Polyethylene Glycol 3350 17 GM PACKET PO (06:16)
[2019-02-08] MEDS: Lisinopril 5 MG Tablet PO (06:16)
[2019-02-08] MEDS: Levothyroxine 150 MCG Tablet PO (06:16)
[2019-02-08] MEDS: Nystatin Powder 15gm Bottle 1 APPLIC TOPICAL ×2 (06:18→20:38)
[2019-02-08 06:36] LABS: Bedside Glucose 116 mg/dL (70-110)
[2019-02-08] MEDS: Glimepiride 4 MG Tablet PO (08:42)
[2019-02-08] MEDS: metFORMIN HCl 1,000 MG Tablet 1000 MG PO ×2 (08:42→17:46)
[2019-02-08] MEDS: Iron Polysaccharide Complex 150 MG CAPSULE PO (08:42)
[2019-02-08 08:52] VITALS: PULSE 77; RESP 18; O2SAT 98
[2019-02-08] MEDS: oxyCODONE 5 MG Tablet 10 MG PO ×3 (09:43→20:35)
[2019-02-08 16:00] VITALS: BP 130/70; PULSE 84; RESP 18; TEMP 36.4; O2SAT 94
[2019-02-08] MEDS: dilTIAZem CD 300 MG Capsule PO (20:36)
[2019-02-09] MEDS: Polyethylene Glycol 3350 17 GM PACKET PO (05:52)
[2019-02-09] MEDS: Senna/Docusate Sodium 1 Tablet 2 TABLET PO (05:53)
[2019-02-09] MEDS: Pantoprazole Sodium 40 MG Tablet PO (05:53)
[2019-02-09] MEDS: Sertraline 100 MG Tablet PO (05:53)
[2019-02-09] MEDS: Gabapentin 100 MG Capsule PO ×3 (05:53→20:26)
[2019-02-09] MEDS: Lisinopril 5 MG Tablet PO (05:53)
[2019-02-09] MEDS: Levothyroxine 150 MCG Tablet PO (05:53)
[2019-02-09] MEDS: Enoxaparin 40 MG/0.4 ML Syringe SC (05:54)
[2019-02-09] MEDS: Nystatin Powder 15gm Bottle 1 APPLIC TOPICAL ×2 (05:57→20:27)
[2019-02-09 06:35] LABS: Bedside Glucose 138 mg/dL (70-110)
[2019-02-09] MEDS: Ondansetron ODT 4 MG Tablet PO (07:46)
[2019-02-09] MEDS: Glimepiride 4 MG Tablet PO (07:47)
[2019-02-09] MEDS: Iron Polysaccharide Complex 150 MG CAPSULE PO (07:47)
[2019-02-09] MEDS: metFORMIN HCl 1,000 MG Tablet 1000 MG PO ×2 (09:31→17:29)
--- NOTE | 2019-02-09 11:16 | CASEMGMT ---
Social Work IDT met with patient and for care plan meeting. Discussed patient's progress in therapy. Pt is modified independence with bed mobility, transfers, walking 200 ft with rollator supervision, sup. UE ADLs, min assist for LE ADLs, completed 2 steps CGA. Pt lives at home with spouse with no steps and independent proper. Pt has f/u appt 02/13 and possible DC 02/14. Pt will follow with [facility] at [place] . Will continue to follow. MICHAELLE MalhotraW
[2019-02-09] MEDS: oxyCODONE 5 MG Tablet 10 MG PO ×2 (12:16→20:24)
[2019-02-09 16:00] VITALS: BP 103/63; PULSE 77; RESP 18; TEMP 37.2; O2SAT 91
[2019-02-09] MEDS: dilTIAZem CD 300 MG Capsule PO (20:26)
[2019-02-09 22:14] VITALS: PULSE 93; O2SAT 97
[2019-02-10] MEDS: traMADol 50 MG Tablet PO ×2 (00:47→12:30)
[2019-02-10] MEDS: Sertraline 100 MG Tablet PO (06:24)
[2019-02-10] MEDS: Gabapentin 100 MG Capsule PO ×3 (06:24→19:45)
[2019-02-10] MEDS: Pantoprazole Sodium 40 MG Tablet PO (06:24)
[2019-02-10] MEDS: Enoxaparin 40 MG/0.4 ML Syringe SC (06:24)
[2019-02-10] MEDS: Lisinopril 5 MG Tablet PO (06:24)
[2019-02-10] MEDS: Levothyroxine 150 MCG Tablet PO (06:24)
[2019-02-10] MEDS: Senna/Docusate Sodium 1 Tablet 2 TABLET PO ×2 (06:24→18:00)
[2019-02-10] MEDS: Polyethylene Glycol 3350 17 GM PACKET PO (06:24)
[2019-02-10] MEDS: Nystatin Powder 15gm Bottle 1 APPLIC TOPICAL ×2 (06:26→19:44)
[2019-02-10 06:31] LABS: Bedside Glucose 146 mg/dL (70-110)
[2019-02-10] MEDS: Glimepiride 4 MG Tablet PO (07:56)
[2019-02-10] MEDS: metFORMIN HCl 1,000 MG Tablet 1000 MG PO ×2 (07:56→18:01)
[2019-02-10] MEDS: Iron Polysaccharide Complex 150 MG CAPSULE PO (07:56)
[2019-02-10] MEDS: oxyCODONE 5 MG Tablet 10 MG PO (15:10)
[2019-02-10 15:54] VITALS: BP 144/74; PULSE 79; RESP 20; TEMP 36.4; O2SAT 95
[2019-02-10] MEDS: dilTIAZem CD 300 MG Capsule PO (19:44)
[2019-02-10 20:04] VITALS: PULSE 84; RESP 18
[2019-02-11] MEDS: Enoxaparin 40 MG/0.4 ML Syringe SC (06:09)
[2019-02-11] MEDS: Polyethylene Glycol 3350 17 GM PACKET PO (06:09)
[2019-02-11] MEDS: Pantoprazole Sodium 40 MG Tablet PO (06:10)
[2019-02-11] MEDS: Nystatin Powder 15gm Bottle 1 APPLIC TOPICAL ×2 (06:10→19:47)
[2019-02-11] MEDS: Gabapentin 100 MG Capsule PO ×3 (06:10→19:45)
[2019-02-11] MEDS: Senna/Docusate Sodium 1 Tablet 2 TABLET PO (06:10)
[2019-02-11] MEDS: Levothyroxine 150 MCG Tablet PO (06:11)
[2019-02-11] MEDS: Sertraline 100 MG Tablet PO (06:11)
[2019-02-11] MEDS: Lisinopril 5 MG Tablet PO (06:11)
[2019-02-11 07:36] LABS: Bedside Glucose 160 mg/dL (70-110)
[2019-02-11 08:04] LABS: Absolute Lymphocyte Count 3.13 X10^3/uL (0.83-4.51); Absolute Neutrophil Count 6.3 X10^3/uL (2.0-7.7); Basophil# 0.08 X10^3/uL; Basophil% 0.8 % (0-1); Eosinophil# 0.37 X10^3/uL; Eosinophils% 3.5 % (0-5); Hematocrit 37.4 % (37-47); Hemoglobin 11.1 g/dL (12.0-15.0); Lymphocyte # 3.13 X10^3/ul (4.0); Lymphocyte % 29.4 % (19-41); Mean Corp Hgb Conc 29.7 g/dL (32-36); Mean Corpuscular Hgb 24.4 pg (27.0-32.0); Mean Corpuscular Volume 82.2 fL (81-99); Mean Platelet Vol. 10.2 fl (6.2-12.0); Monocyte# 0.71 X10^3/uL; Monocyte% 6.7 % (0-10); NRBC Flagged by Analyzer 0 % (0-5); Neutrophil # 6.29 X10^3/uL (2.7-7.7); Neutrophil % 58.8 % (47-70); Platelet Count 462 K/mm3 (150-450); RBC Distribution Width SD 41.2 fl (35.1-43.9); Red Blood Count 4.55 M/mm3 (4.2-5.4); White Blood Count 10.7 K/mm3 (4.4-11.0)
[2019-02-11 08:24] LABS: Anion Gap 6 (5-15); BUN 11 mg/dL (7-18); BUN/Creat Ratio 17.1 RATIO (10-20); Calcium,Total 10.2 mg/dL (8.5-10.1); Chloride 106 mmol/L (98-107); Creatinine, Serum 0.64 mg/dL (0.55-1.02); EST Glomerular Filtration Rate 96 mL/min (>60); Est Glom Filt Rate - Afr Amer 117 mL/min (>60); Estimated Creatinine Clearance 41.45 ml/min; Glucose 160 mg/dL (74-106); Potassium 3.9 mmol/L (3.5-5.1); Sodium Level 140 mmol/L (136-145)
[2019-02-11] MEDS: Glimepiride 4 MG Tablet PO (08:47)
[2019-02-11] MEDS: Iron Polysaccharide Complex 150 MG CAPSULE PO (08:47)
[2019-02-11] MEDS: metFORMIN HCl 1,000 MG Tablet 1000 MG PO ×2 (08:47→17:04)
[2019-02-11] MEDS: Tuberculin,Purif.prot.deriv. 50 TU/ML Vial 5 ML ID (09:21)
[2019-02-11] MEDS: traMADol 50 MG Tablet PO (10:36)
[2019-02-11 16:00] VITALS: BP 122/56; PULSE 77; RESP 18; TEMP 36.7; O2SAT 95
[2019-02-11] MEDS: oxyCODONE 5 MG Tablet 10 MG PO (19:44)
[2019-02-11] MEDS: dilTIAZem CD 300 MG Capsule PO (19:45)
[2019-02-12] MEDS: oxyCODONE 5 MG Tablet 10 MG PO ×3 (02:44→21:26)
[2019-02-12] MEDS: Enoxaparin 40 MG/0.4 ML Syringe SC (05:50)
[2019-02-12] MEDS: Levothyroxine 150 MCG Tablet PO (05:50)
[2019-02-12] MEDS: Polyethylene Glycol 3350 17 GM PACKET PO (05:50)
[2019-02-12] MEDS: Lisinopril 5 MG Tablet PO (05:51)
[2019-02-12] MEDS: Sertraline 100 MG Tablet PO (05:51)
[2019-02-12] MEDS: Pantoprazole Sodium 40 MG Tablet PO (05:51)
[2019-02-12] MEDS: Gabapentin 100 MG Capsule PO ×3 (05:51→21:27)
[2019-02-12] MEDS: Nystatin Powder 15gm Bottle 1 APPLIC TOPICAL ×2 (06:40→21:29)
[2019-02-12 06:50] LABS: Bedside Glucose 165 mg/dL (70-110)
[2019-02-12] MEDS: Iron Polysaccharide Complex 150 MG CAPSULE PO (08:22)
[2019-02-12] MEDS: metFORMIN HCl 1,000 MG Tablet 1000 MG PO ×2 (08:23→17:00)
[2019-02-12] MEDS: Glimepiride 4 MG Tablet PO (08:23)
[2019-02-12 15:45] VITALS: BP 118/68; PULSE 71; RESP 19; TEMP 36.9; O2SAT 94
[2019-02-12] MEDS: Senna/Docusate Sodium 1 Tablet 2 TABLET PO (17:00)
[2019-02-12] MEDS: dilTIAZem CD 300 MG Capsule PO (21:27)
[2019-02-13] MEDS: oxyCODONE 5 MG Tablet 10 MG PO ×2 (04:56→19:39)
[2019-02-13] MEDS: Polyethylene Glycol 3350 17 GM PACKET PO (04:57)
[2019-02-13] MEDS: cycloBENZAPRine HCl 10 MG Tablet PO (04:57)
[2019-02-13] MEDS: Enoxaparin 40 MG/0.4 ML Syringe SC (04:58)
[2019-02-13] MEDS: Senna/Docusate Sodium 1 Tablet 2 TABLET PO ×2 (04:59→17:58)
[2019-02-13] MEDS: Levothyroxine 150 MCG Tablet PO (04:59)
[2019-02-13] MEDS: Sertraline 100 MG Tablet PO (04:59)
[2019-02-13] MEDS: Pantoprazole Sodium 40 MG Tablet PO (05:00)
[2019-02-13] MEDS: Lisinopril 5 MG Tablet PO (05:00)
[2019-02-13] MEDS: Nystatin Powder 15gm Bottle 1 APPLIC TOPICAL ×2 (05:04→22:11)
[2019-02-13 06:40] LABS: Bedside Glucose 132 mg/dL (70-110)
[2019-02-13] MEDS: Gabapentin 100 MG Capsule PO ×3 (07:24→22:09)
[2019-02-13] MEDS: metFORMIN HCl 1,000 MG Tablet 1000 MG PO ×2 (08:52→17:58)
[2019-02-13] MEDS: Glimepiride 4 MG Tablet PO (08:52)
[2019-02-13] MEDS: Iron Polysaccharide Complex 150 MG CAPSULE PO (08:52)
[2019-02-13 10:00] VITALS: PULSE 85; RESP 16
[2019-02-13 16:00] VITALS: BP 125/68; PULSE 80; RESP 20; TEMP 36.4; O2SAT 94
[2019-02-13] MEDS: dilTIAZem CD 300 MG Capsule PO (22:09)
[2019-02-14] MEDS: oxyCODONE 5 MG Tablet 10 MG PO ×3 (01:54→20:05)
[2019-02-14 06:21] LABS: Bedside Glucose 110 mg/dL (70-110)
[2019-02-14] MEDS: Senna/Docusate Sodium 1 Tablet 2 TABLET PO ×2 (06:39→16:35)
[2019-02-14] MEDS: Pantoprazole Sodium 40 MG Tablet PO (06:39)
[2019-02-14] MEDS: Lisinopril 5 MG Tablet PO (06:39)
[2019-02-14] MEDS: Polyethylene Glycol 3350 17 GM PACKET PO (06:39)
[2019-02-14] MEDS: Levothyroxine 150 MCG Tablet PO (06:39)
[2019-02-14] MEDS: Gabapentin 100 MG Capsule PO ×3 (06:39→22:10)
[2019-02-14] MEDS: Sertraline 100 MG Tablet PO (06:39)
[2019-02-14] MEDS: Enoxaparin 40 MG/0.4 ML Syringe SC (06:39)
[2019-02-14] MEDS: Nystatin Powder 15gm Bottle 1 APPLIC TOPICAL (06:43)
[2019-02-14] MEDS: Glimepiride 4 MG Tablet PO (08:02)
[2019-02-14] MEDS: Iron Polysaccharide Complex 150 MG CAPSULE PO (08:02)
[2019-02-14] MEDS: metFORMIN HCl 1,000 MG Tablet 1000 MG PO ×2 (08:02→16:35)
--- NOTE | 2019-02-14 08:25 | DCINST_ITS ---
- Discharge Diagnoses Current Active Problems: Current Active and Chronic Problems (Last Reviewed 01/17/19 @ 13:06 by Isis Valdovinos) Debility (Acute) Hearing loss (Chronic) Spondylolisthesis, lumbar region (Chronic) Osteoarthritis (Chronic) Weakness of both legs (Chronic) GERD (gastroesophageal reflux disease) (Chronic) Depression (Chronic) Anxiety (Chronic) Anemia (Chronic) Hypothyroidism (Chronic) Diabetes mellitus (Chronic) Hyperlipidemia (Chronic) Angina pectoris (Chronic) You will use the following diet at home:: No restrictions, Regular Your food should be the consistency of: Regular Your liquids should be the consistency of: Regular/Thin Discharge Activity: Return to Normal Activity, May Shower, Use Walker Weight Bearing Status: Weight bearing as tolerated Call your doctor if you observe: Fever of 101 or Higher, Inability to urinate, Shortness of breath, Chest pain, Uncontrolled pain Allergies/Adverse Reactions: Allergies prednisone Allergy (Intermediate, Verified 01/17/19 13:20) Itching,hives codeine Allergy (Verified 01/17/19 13:20) Agitation prednisolone Allergy (Verified 01/17/19 13:20) Hives Sulfa (Sulfonamide Antibiotics) Allergy (Verified 01/17/19 13:20) Hives BEE Allergy (Uncoded 10/14/18 09:05) Anaphylaxis Medications to take at Discharge Diltiazem HCl [Diltiazem 24Hr ER] 300 mg PO QHS 12/15/13 Levothyroxine [Synthroid] 150 mcg PO DAILY 12/15/13 Sertraline HCl [Zoloft] 100 mg PO DAILY 12/15/13 Omeprazole [Prilosec] 40 mg PO DAILY 07/25/16 metFORMIN HCl [Glucophage] 1,000 mg PO BIDCM 07/25/16 glimepiride 4 mg tablet 4 mg PO DAILY tab 01/16/19 lisinopril 5 mg tablet 5 mg PO DAILY tab 01/16/19 Cyclobenzaprine HCl 10 mg PO TID PRN #90 tab 02/14/19 Gabapentin [Neurontin] 100 mg PO TID #90 cap 02/14/19 Iron Polysaccharide Complex [Ferrex 150] 150 mg PO DAILYCM #30 cap 02/14/19 Mineral Oil/Petrolatum,White [Eucerin] 1 applic TOPICAL 2200 jar 02/14/19 Nystatin Powder [Mycostatin Powder] 1 applic TOPICAL 0600,2200 bottle 02/14/19 Oxycodone [Oxyir] 5 mg PO Q6H PRN PRN 7 Days #28 tablet 02/14/19 Polyethylene Glycol 3350 [Miralax] 17 gm PO DAILY #30 packet 02/14/19 Senna/Docusate Sodium [Senokot-S] 2 tab PO BID #120 tab 02/14/19 The following prescriptions were given: Cyclobenzaprine HCl 10 mg PO TID PRN #90 tab PRN Reason: muscle spasms Transmission Status: Pending to [facility] Iron Polysaccharide Complex [Ferrex 150] 150 mg PO DAILYCM #30 cap Transmission Status: Pending to [facility] Polyethylene Glycol 3350 [Miralax] 17 gm PO DAILY #30 packet Transmission Status: Pending to [facility] Gabapentin [Neurontin] 100 mg PO TID #90 cap Transmission Status: Pending to [facility] 181 Oxycodone [Oxyir] 5 mg PO Q6H PRN PRN 7 Days #28 tablet PRN Reason: Pain Score 6-10/10 Transmission Status: [facility] Senna/Docusate Sodium [Senokot-S] 2 tab PO BID #120 tab Transmission Status: Pending to [facility] Primary Care Physician: Jovanni Acosta DO [Primary Care Provider] - Please follow up with your Primary Care Physician in: 1 week. Test Results: Test results from this visit will be discussed in further detail at your follow- up appointment, if applicable. Please Follow Up With: Domenico Scott DO When: F/U in 8 weeks Proposed Discharge Date: 02/15/19
--- NOTE | 2019-02-14 08:26 | DS.PCM_ITS ---
Discharge Date and Diagnosis - Problem List Patient Problems: Active and Suspected Problems (Last Reviewed 01/17/19 @ 13:06 by Isis Valdovinos) Debility (Acute) Date of Admission: 02/03/19 Date of Discharge: 02/15/19 - Primary Discharge Diagnosis Active and Suspected Problems (Last Reviewed 01/17/19 @ 13:06 by Isis Valdovinos) Debility (Acute) - Secondary Discharge Diagnosis Chronic Problems (Last Reviewed 01/17/19 @ 13:06 by Isis Valdovinos) Hearing loss (Chronic) Spondylolisthesis, lumbar region (Chronic) Osteoarthritis (Chronic) Weakness of both legs (Chronic) GERD (gastroesophageal reflux disease) (Chronic) Depression (Chronic) Anxiety (Chronic) Anemia (Chronic) Hypothyroidism (Chronic) Diabetes mellitus (Chronic) Hyperlipidemia (Chronic) Angina pectoris (Chronic) Essential hypertension (Chronic) Hospital Course and Treatment Imaging Results: 02/03/19 17:15 Diet: Carbohydrate Controlled Labs (Last 48 Hours) 02/13/19 02/14/19 06:14 06:15 POC Glucose 132 H 110 Operations: None Procedures: None Summary of Care Provided: The patient is a 74 year old Female with below past medical history hospitalized for lumbar spine surgery 01/30/[address] Domenico Scott, admitted to TCU with debility, here for rehabilitation, strengthening, prior to discharge home with . On TCU, Ferrex 150MG daily, Miralax 17GM daily, Senna/colace 2 tablets twice daily added, can discontinue after follow up with primary care provider. Discharge home with , outpatient PT at [facility]. Patient Problems: Active and Suspected Problems (Last Reviewed 01/17/19 @ 13:06 by Isis Valdovinos) Debility (Acute) - Physical Exam Vitals/I&O's: Vital Signs Temp Pulse Resp BP Pulse Ox 97.6 F L 80 20 H 125/68 H 94 02/13/19 16:00 02/13/19 16:00 02/13/19 16:00 02/13/19 16:00 02/13/19 16:00 Oxygen Flow Rate (L/min) 93 Oxygen Delivery Method Room Air Weight: 88.904 kg Body Mass Index (BMI) 34.9 Finger Stick Blood Glucose 166 Intake and Output for Last 24 Hours 02/12/19 02/13/19 02/14/19 23:59 23:59 23:59 Intake Total 1110 / 1110 720 / 720 Balance 1110 / 1110 720 / 720 Laboratory Results 02/14/19 06:15: POC Glucose 110 Current Medications Bisacodyl (Dulcolax) 10 mg PO DAILY PRN PRN Reason: Constipation Last Admin: 02/05/19 04:36 Dose: 10 mg Documented by: Cyclobenzaprine HCl (Flexeril) 10 mg PO TID PRN PRN PRN Reason: muscle spasms Last Admin: 02/13/19 04:57 Dose: 10 mg Documented by: Diltiazem HCl (Cardizem Cd) 300 mg PO QHS [facility] Last Admin: 02/13/19 22:09 Dose: 300 mg Documented by: Enoxaparin Sodium (Lovenox) 40 mg SC DAILY@0600 [facility] Last Admin: 02/14/19 06:39 Dose: 40 mg Documented by: Gabapentin (Neurontin) 100 mg PO TID [facility] Last Admin: 02/14/19 06:39 Dose: 100 mg Documented by: Glimepiride (Amaryl) 4 mg PO DAILY@0745 [facility] Last Admin: 02/14/19 08:02 Dose: 4 mg Documented by: Levothyroxine Sodium (Synthroid) 150 mcg PO DAILY [facility] Last Admin: 02/14/19 06:39 Dose: 150 mcg Documented by: Lisinopril (Zestril) 5 mg PO DAILY [facility] Last Admin: 02/14/19 06:39 Dose: 5 mg Documented by: Metformin HCl (Glucophage) 1,000 mg PO BIDCM [facility] Last Admin: 02/14/19 08:02 Dose: 1,000 mg Documented by: Multi-Ingredient Cream (Eucerin) 1 applic TOPICAL 2200 [facility]; Protocol Last Admin: 02/13/19 22:11 Dose: 1 applic Documented by: Nystatin (Mycostatin Powder) 1 applic TOPICAL 0600,2200 [facility]; Protocol Last Admin: 02/14/19 06:43 Dose: 1 applicatio Documented by: Ondansetron HCl (Zofran Odt) 4 mg PO DAILY PRN PRN Reason: NAUSEA Last Admin: 02/09/19 07:46 Dose: 4 mg Documented by: Oxycodone HCl (Oxyir) 10 mg PO Q4H PRN PRN Reason: Pain Score 6-10/10 Last Admin: 02/14/19 01:54 Dose: 10 mg Documented by: Pantoprazole Sodium (Protonix) 40 mg PO DAILY [facility] Last Admin: 02/14/19 06:39 Dose: 40 mg Documented by: Polyethylene Glycol (Miralax) 17 gm PO DAILY [facility] Last Admin: 02/14/19 06:39 Dose: 17 gm Documented by: Pol[facility]accharide [facility] 150[facility] Last Admin: 02/14/19 08:02 Dose: 150 mg Documented by: Senna/Docusate Sodium (Senokot-S, Rosaura-Colace) 2 tablet PO BID [facility] Last Admin: 02/14/19 06:39 Dose: 2 tablet Documented by: Sertraline HCl (Zoloft) 100 mg PO DAILY [facility] Last Admin: 02/14/19 06:39 Dose: 100 mg Documented by: Tramadol HCl (Ultram) 50 mg PO Q6H PRN PRN PRN Reason: Pain Score 4-5/10 Last Admin: 02/11/19 10:36 Dose: 50 mg Documented by: Discharge Diet: No Restrictions Discharge Activity: Return to Normal Activity, May Shower, Use Walker Weight Bearing Status: Weight bearing as tolerated Call your doctor if you observe: Fever of 101 or Higher, Inability to urinate, Shortness of breath, Chest pain, Uncontrolled pain Home Medications: Medications to take at Discharge Diltiazem HCl [Diltiazem 24Hr ER] 300 mg PO QHS 12/15/13 Levothyroxine [Synthroid] 150 mcg PO DAILY 12/15/13 Sertraline HCl [Zoloft] 100 mg PO DAILY 12/15/13 Omeprazole [Prilosec] 40 mg PO DAILY 07/25/16 metFORMIN HCl [Glucophage] 1,000 mg PO BIDCM 07/25/16 glimepiride 4 mg tablet 4 mg PO DAILY tab 01/16/19 lisinopril 5 mg tablet 5 mg PO DAILY tab 01/16/19 Cyclobenzaprine HCl 10 mg PO TID PRN #90 tab 02/14/19 Gabapentin [Neurontin] 100 mg PO TID #90 cap 02/14/19 Iron Polysaccharide Complex [Ferrex 150] 150 mg PO DAILYCM #30 cap 02/14/19 Mineral Oil/Petrolatum,White [Eucerin] 1 applic TOPICAL 2200 jar 02/14/19 Nystatin Powder [Mycostatin Powder] 1 applic TOPICAL 0600,2200 bottle 02/14/19 Oxycodone [Oxyir] 5 mg PO Q6H PRN PRN 7 Days #28 tablet 02/14/19 Polyethylene Glycol 3350 [Miralax] 17 gm PO DAILY #30 packet 02/14/19 Senna/Docusate Sodium [Senokot-S] 2 tab PO BID #120 tab 02/14/19 Following Prescrptions Were Given to Patient: Cyclobenzaprine HCl 10 mg PO TID PRN #90 tab PRN Reason: muscle spasms Transmission Status: [facility] Iron Polysaccharide Complex [Ferrex 150] 150 mg PO DAILYCM #30 cap Transmission Status: [facility] Polyethylene Glycol 3350 [Miralax] 17 gm PO DAILY #30 packet Transmission Status: [facility] Gabapentin [Neurontin] 100 mg PO TID #90 cap Transmission Status: [facility] Oxycodone [Oxyir] 5 mg PO Q6H PRN PRN 7 Days #28 tablet PRN Reason: Pain Score 6-10/10 Transmission Status: [facility] Senna/Docusate Sodium [Senokot-S] 2 tab PO BID #120 tab Transmission Status: [facility] Primary Care Physician: Jovanni Acosta DO [Primary Care Provider] - Please follow up with your Primary Care Physician in: 1 week. Please Follow Up With: Domenico Scott DO When: F/U in 8 weeks Disposition: Home Minutes spent on discharge:: 30 Patient Condition:: Good Medical Necessity - Tobacco Use Smoking Status: Never smoker Tobacco Use: Non-smoker Meaningful Use Info Meaningful Use Diagnoses (Choose all that apply): None applicable
--- NOTE | 2019-02-14 09:11 | CASEMGMT ---
Social Work SW met with pt to discuss discharge plan. Pt would like to return home tomorrow 02/15/19. Pt spouse will be able to provide transport and assist at home as needed. While SW was in pt room pt called spouse who is in agreement with d/c plan. Pt will be receiving outpt PT at [facility]. No other d/c needs at this time. Nursing and IDT made aware of pt d/c plans. Referral called to [facility] and orders faxed. [facility] to call pt to set up first appointment time. Plan: D/C 02/15/19 home with spouse and outpatient PT at [facility] MEHUL Esparza
--- NOTE | 2019-02-14 11:53 | CASEMGMT ---
BIMS and PHQ9 interviews completed on this date for MDS assessment. MEHUL Esparza
--- NOTE | 2019-02-14 13:35 | MDS.RN ---
Information for the mds was obtained from review of the clinical record, interview of resident, staff, and direct observation of resident's care.
[2019-02-14 16:00] VITALS: BP 118/64; PULSE 81; RESP 18; TEMP 36.5; O2SAT 94
--- NOTE | 2019-02-14 17:25 | CHAPLAIN ---
Type of Pastoral Visit _x__ Initial Visit ___ Follow-up Visit ___ On-call Visit ___ General Patient Visit ___ Spiritual Assessment ___ Family Conference ___ Bereavement ___ Rapid Response ___ Code Blue ___ Other (describe below) Pastoral Care Referral From _x__ Patient ___ Family ___ Nurse ___ Physician ___ Proposal Rep ___ Arts And Crafts Teacher ___ Other (describe below) Sacrament/Intervention _x__ Active listening ___ Anointing ___ Hoahaoism ___ Bereavement ___ Communion ___ Betzaida exploration ___ ___ Life review _x__ Prayer ___ Reconciliation ___ Sacrament of Sick ___ Supportive presence ___ Wedding ___ Other (describe below) Pastoral Comments
[2019-02-14] MEDS: dilTIAZem CD 300 MG Capsule PO (22:10)
[2019-02-15] MEDS: Lisinopril 5 MG Tablet PO (05:05)
[2019-02-15] MEDS: Levothyroxine 150 MCG Tablet PO (05:05)
[2019-02-15] MEDS: Enoxaparin 40 MG/0.4 ML Syringe SC (05:05)
[2019-02-15] MEDS: Pantoprazole Sodium 40 MG Tablet PO (05:05)
[2019-02-15] MEDS: Gabapentin 100 MG Capsule PO (05:05)
[2019-02-15] MEDS: Sertraline 100 MG Tablet PO (05:05)
[2019-02-15 06:25] LABS: Bedside Glucose 137 mg/dL (70-110)
[2019-02-15] MEDS: Glimepiride 4 MG Tablet PO (09:10)
[2019-02-15] MEDS: metFORMIN HCl 1,000 MG Tablet 1000 MG PO (09:10)
[2019-02-15] MEDS: Iron Polysaccharide Complex 150 MG CAPSULE PO (09:10)
[2019-02-15 09:57] VITALS: BP 114/66; PULSE 93; RESP 20; TEMP 36.8; O2SAT 100
== END 2019-02-15 10:00 | disposition home or self-care (01) | DRG 561 ==
PROVIDERS: Admitting Provider Family Medicine Geriatric Medicine; Family Provider Family Medicine; PCP Family Medicine; Referring Provider Family Medicine Geriatric Medicine; Visit Provider Family Medicine Geriatric Medicine
DX: Z47.89 Encounter for other orthopedic aftercare (principal); M43.16 Spondylolisthesis, lumbar region; K21.9 Gastro-esophageal reflux disease without esophagitis; M19.90 Unspecified osteoarthritis, unspecified site; I10 Essential (primary) hypertension; E78.5 Hyperlipidemia, unspecified; R53.1 Weakness; E11.42 Type 2 diabetes mellitus with diabetic polyneuropathy; M48.062 Spinal stenosis, lumbar region with neurogenic claudication; F41.8 Other specified anxiety disorders
CPT/HCPCS: 36415; 80048; 82962; 85025; 97110; 97116; 97161; 97165; 97530; 97535; 97802

== ENCOUNTER 2019-04-06 08:30 | Outpatient (RCR) | payer MEDICARE, OTHER, SELFPAY ==
[2019-02-03 16:47] VITALS: BMI 34.9
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
--- NOTE | 2019-03-13 09:49 | HP.PTREVAL_ITS ---
Bakari Jordan MD, It has been my pleasure to treat SANTIAGO ZURITA over the last 10 visits for S/P BACK SURGERY 02/13/19. Please see the progress note below for an update on the physical therapy plan of care! Subjective: PATIENT REPORTS SHE IS WALKING SO MUCH BETTER AND SO MUCH MORE ACTIVE NOW. SHE REPORTS SHE IS STIFF THIS MORNING BUT NOT HAVING ANY PAIN. REPORTS SHE WAS IN BED SICK AND HAD DIAHREA ALL DAY YESTERDAY BUT OK TODAY. I EVEN RAN THE VACUUM CLEAR COAT SPRAYER A LITTLE BIT TODAY AND I HAVEN'T DONE THAT FOR YEARS (ITS JUST AN EIGHT POUNDER) Objective/Function: PATIENT WAS SEEN TODAY FOR RE-ASSESSMENT OF PROGRESS TOWARD THE SET PT GOALS AND THE NEED FOR FURTHER PHYSICAL THERAPY VS READINESS FOR DISCHARGE. PATIENT IS MAKING GOOD PROGRESS WITH PT AND IS A GOOD CANDIDATE TO CONTINUE PT TO PROGRESS STRENGTH, BALANCE AND ROM. UPON EXAM TODAY: PATIENT DEMONSTRATES INDEP AND SAFE GAIT ON LEVEL SURFACES WITHOUT AD BUT WITH DECREASED CADANCE AND INCREASED CAUTION. PATIENT IS NOW ABLE TO TRANSFER FROM SIT TO STAND WITHOUT UE ASSIST. Motor deficit: AARON LE'S GROSSLY 5/5 WITH MMT'IING EXCEPT HIPS 4/5. Sensory deficit: AARON LE LIGHT TOUCH SENSATION INTACT AND SYMMETRICAL. ROM deficit: TIGHT AARON LE HS'S AND GASTROC SOLEUS COMPLEX'S. Reflexes: NT. Dural Signs: NEGATIVE AARON LE'S. Lumbar mvmt loss: NT (THIS PT CALLED DR. JW ANTONY OFFICE TO FIND OUT IF SHE HAS ANY RESTRICTIONS ON BENDING, LIFTING AND TWISITNG AT THIS POINT - AND PA ARE IN SURGERY AND WILL GET BACK WITH US). Core strength: POOR. Palpation: INCISION LOOKS GOOD WITHOUT ANY SIGNS OF INFECTION. TREATMENT: NEUROMUSCULAR REEDUCATION - RETRAINING OF MVMT AND POSTURE FOR SITTING, LYING AND STANDING ACTIVITIES. SPECIFICALLY ADDRESSED VACUUMING, KITCHEN, SHOPPING AND HOUSEWORK TYPE ACTIVITIES. PATIENT DEMONSTRATED AND COMMUNICATED A GOOD UNDERSTANDING OF ALL INSTRUCTION AFTER GIVEN Plan Plan: IF ORDER REC'D OK'ING PROGRESSION OF LUMBAR ROM TOLERATED - GET BASELINE LUMBAR ROM MEASUREMENTS AND THEN BEGIN SKTC AND LTR SLOWLY TOLERATED. CONTINUE PT 2X'S A WEEK X 4 WEEKS PER ORIG POC WORKING TOWARD SAME GOALS. PATIENT IS AGREEABLE. POSTURE CORRECTION/STRENGTHENING, INSTRUCTION IN APPROPRIATE BODY MECHANICS AND ACTIVITY MODIFICATIONS. PROGRESSION OF DLS STARTING WITH A NEUTRAL SPINE PROGRESSING ROM IF OK'D BY DR. PERRY. PROGRESSION OF AARON LE ROM, STRETCHING AND STRENGTHENING. HEP INSTRUCTION. Goals Goal 1:: DECREASE C/O MID AND LOW BACK PAIN. Goal Time Frame: 4-6 Weeks Goal Progress: Progressing Goal 2:: IMPROVE personal care, lifting, walking, sitting, standing, sleep, social life, travel and homemaking function. Goal Time Frame: 4-6 Weeks Goal Progress: Progressing Goal 3:: INSTRUCT IN PROPHYLAXIS Goal Time Frame: 4-6 Weeks Goal Progress: Progressing Anticipated Interventions Patient/Client Instruction: Educate patient on: Condition, Plan of Care, Risk Factors, Benefits of Fitness Program For the Purpose of:: To improve self management Therapeutic Exercise to Include: Strength training, Body mechanics, Postural training, Flexibilty training, Dynamic Lumbar Stabilization For the Purpose of:: To increase ROM, To improve muscle performance and motor function, To increase tolerance to activity/condition/position, To improve ability of physical actions for home/community/work/leisure Please do not hesitate to contact me at [phone] by phone or if you have questions or concerns regarding this new plan of care! Sincerely, Yareli Gibbs, PT, Cert MDT
--- NOTE | 2019-04-06 09:37 | HP.PTDCSUM_ITS ---
HP - PT D/C Summary It has been my pleasure to treat SANTIAGO ZURITA under orders from Bakari Jordan MD, for the diagnosis of S/P BACK SURGERY 02/13/19 for a total of 18 visit(s). Discharge Date: Please see the following information for a summary of their discharge status. - Subjective Subjective: I AM SO TICKLED WITH HOW I AM DOING. PATIENT REPORTS THEY ARE GETTING OUT NOW AND SHE IS REALLY HAPPY WITH HER PROGRESS. I'M AT LEAST 90% BETTER. PATIENT REPORTS THE PAIN PRIOR TO NOW WAS REALLY ROBBING HER LIFE. SHE REPORTS SHE IS DOING MORE AT HOME BUT SHE IS ALWAYS MINDFUL OF HOW SHE DOES THINGS. STILL GETTING SOME LOW BACK PAIN BY THE END OF THE DAY. PATIENT DENIES AARON LE PAIN NUMBNESS OR TINGLING. FOLLOW UP AT SURGEONS OFFICE APR 11 2019. PATIENT REPORTS SHE HAS PRETTY MUCH RECOVERED FROM HER FALL A FEW WEEKS AGO BUT SOME TAILBONE PAIN WITH SITTING. - Pain Back Pain Intensity (Out of 10): 2 - Overall Improvement % Improvement: 90 - Objective Objective/Function: PATIENT WAS SEEN TODAY FOR RE-ASSESSMENT OF PROGRESS TOWARD THE SET PT GOALS AND THE NEED FOR FURTHER PHYSICAL THERAPY VS READINESS FOR DISCHARGE. PATIENT HAS MADE GREAT PROGRESS TOWARD ALL PT GOALS AND IS APPROPRIATE FOR AND AGREEABLE TO DISCHARGE AT THIS TIME. PATIENT PLANS TO CONTINUE INDEP EX WITH HER HERE AT [facility] AT THIS TIME. UPON EXAM TODAY: PATIENT DEMONSTRATES INDEP AND SAFE GAIT ON LEVEL SURFACES WITHOUT AD AND NORMALIZED GAIT PATTERN. SHE IS ABLE TO TRANSFER INDEP'LY FROM SIT TO STAND WITHOUT UE ASSIST. Motor deficit: AARON LE'S GROSSLY 5/5 WITH MMT'ING. Sensory deficit: AARON LE LIGHT TOUCH SENSATION INTACT AND SYMMETRICAL. ROM deficit: PATIENT CONTINUES TO HAVE GASTROC SOLEUS COMPLEX TIGHTNESS. Reflexes: NT. Dural Signs: NEGATIVE AARON LE'S. Lumbar mvmt loss: FLEX - MIN. EXT - IZABEL. RSG - IZABEL. LSG - MOD. LUMBAR ROM IS IMRPOVING AND PATIENT DENIED INICREASED PAIN WITH NON AGGRESSIVE TESTING TODAY. Core strength: POOR BUT IMPROVING WITH EX. Palpation: INCISION LOOKS GREAT. - Goals Goal 1:: DECREASE C/O MID AND LOW BACK PAIN. Goal Progress: Goal Met Goal 2:: IMPROVE personal care, lifting, walking, sitting, standing, sleep, social life, travel and homemaking function. Goal Progress: Goal Met Goal 3:: INSTRUCT IN PROPHYLAXIS Goal Progress: Goal Met - Plan Plan: D/C TO INDEP EX. PATIENT IS AGREEABLE. - D/C Information If there are questions or concerns regarding this patient's physical therapy, please feel free to call me at [phone]. Thank you for the referral of this patient. Sincerely, Yareli Gibbs, PT, Cert MDT
== END 2019-04-06 19:00 | disposition home or self-care (01) ==
LOC: PT 08:30
PROVIDERS: Family Provider Family Medicine; PCP Family Medicine; Referring Provider Nurse Practitioner; Visit Provider Family Medicine Geriatric Medicine
DX: Z98.890 Other specified postprocedural states (principal); Z98.1 Arthrodesis status
CPT/HCPCS: 97110; 97112; 97162; 97164; 97530

== ENCOUNTER → 2019-05-26 | Outpatient (CLI) | payer MEDICARE, OTHER, SELFPAY ==
[2018-04-19 09:00] VITALS: BMI 35.6
[2019-02-03 16:47] VITALS: BMI 34.9
[2019-05-26 09:59] LABS: Absolute Lymphocyte Count 4.67 X10^3/uL (0.83-4.51); Absolute Neutrophil Count 5.2 X10^3/uL (2.0-7.7); Basophil# 0.12 X10^3/uL; Basophil% 1.1 % (0-1); Eosinophil# 0.64 X10^3/uL; Eosinophils% 5.6 % (0-5); Hematocrit 38.5 % (37-47); Hemoglobin 10.9 g/dL (12.0-15.0); Lymphocyte # 4.67 X10^3/ul (4.0); Lymphocyte % 40.9 % (19-41); Mean Corp Hgb Conc 28.3 g/dL (32-36); Mean Corpuscular Hgb 21.5 pg (27.0-32.0); Mean Corpuscular Volume 76.1 fL (81-99); Mean Platelet Vol. 11.2 fl (6.2-12.0); Monocyte# 0.75 X10^3/uL; Monocyte% 6.6 % (0-10); NRBC Flagged by Analyzer 0 % (0-5); Neutrophil % 45.4 % (47-70); Platelet Count 347 K/mm3 (150-450); RBC Distribution Width CV 15.6 % (11.6-14.6); RBC Distribution Width SD 42.5 fl (35.1-43.9); Red Blood Count 5.06 M/mm3 (4.2-5.4); White Blood Count 11.4 K/mm3 (4.4-11.0)
[2019-05-26 10:15] LABS: Vitamin B12 316 pg/mL (211-911)
[2019-05-26 10:18] LABS: Albumin, Serum 3.6 g/dL (3.2-5.0); BUN 17 mg/dL (7-18); BUN/Creat Ratio 25.3 RATIO (10-20); Creatinine, Serum 0.67 mg/dL (0.55-1.02); EST Glomerular Filtration Rate 91 mL/min (>60); Est Glom Filt Rate - Afr Amer 111 mL/min (>60); Globulin 3.8 g/dL (2.2-4.2); Glucose 87 mg/dL (74-106); Hemoglobin A1c 7.4 % (4.2-6.3); Protein, Total 7.4 g/dL (6.4-8.2)
[2019-05-26 10:19] LABS: ALB/GLOB Ratio 0.9 RATIO (0.9-2.4); AST(SGOT) 15 U/L (15-37); Alanine Aminotransfer ALT/SGPT 22 U/L (13-56); Alkaline Phosphatase 84 U/L (45-117); Anion Gap 6 (5-15); Calcium,Total 9.9 mg/dL (8.5-10.1); Chloride 105 mmol/L (98-107); Cholesterol 194 mg/dL (200); High Density Lipoprotein 61 mg/dL; Potassium 4.5 mmol/L (3.5-5.1); Sodium Level 139 mmol/L (136-145); T4 Free Direct 0.98 ng/dL (0.76-1.46); Thyroid Stim Hormone (TSH) 1.26 uIU/mL (0.358-3.74); Triglycerides 146 mg/dL; Very Low Density Lipoprotein 29 mg/dL (5-40)
[2019-05-26 10:25] LABS: Microalbumin,Random Urine 5.7 mg/L (NO RANGE EST.)
== END | disposition home or self-care (01) ==
LOC: LAB.FUTURE 08:59 → MTLAB 08:59
PROVIDERS: Family Provider Family Medicine; PCP Family Medicine; Referring Provider Family Medicine; Visit Provider Family Medicine
DX: E11.9 Type 2 diabetes mellitus without complications (principal); I10 Essential (primary) hypertension; E03.9 Hypothyroidism, unspecified; G62.9 Polyneuropathy, unspecified; Z51.81 Encounter for therapeutic drug level monitoring
CPT/HCPCS: 36415; 80053; 80061; 82043; 82570; 82607; 83036; 84439; 84443; 85025

== ENCOUNTER → 2019-07-14 | Outpatient (CLI) | payer MEDICARE, OTHER, SELFPAY ==
[2019-02-03 16:47] VITALS: BMI 34.9
--- NOTE | 2019-07-14 15:40 | BI_ITS ---
MAMMOGRAPHY - BILATERAL SCREENING REASON FOR EXAM: Female, 74 years old. Routine annual screening examination. PERTINENT HISTORY: Sister with breast cancer. Grandmother with breast cancer. TECHNIQUE: Digital bilateral breast daniela (3D mammographic acquisition) in the CC and MLO projections. 2-D mediolateral oblique (MLO) and craniocaudad (CC) views of both breasts were obtained. CAD: Full Field Digital Mammography with Computer Added Detection was performed. COMPARISON: Comparison is made with prior examination dated July 08, 2017 and April 14, 2018. FINDINGS: Breast Composition: There are scattered areas of fibroglandular density. There are no dominant masses or suspicious calcifications. A tissue clip marker was again seen in a tiny nodule in the superior lateral aspect of the left breast. Stable 4 mm well-defined nodule in the slightly inferior retroareolar nodule of the left breast. Stable benign-appearing bilateral axillary lymph nodes. No other significant abnormalities are identified. There has been no significant change since the prior study. BI/SCREEN MAMM (CAD) W/DANIELA BILAT IMPRESSION: Stable bilateral screening mammogram. Yearly follow-up mammogram recommended. (A) ASSESSMENT CATEGORY: BIRADS Category 2: Benign. A letter regarding these results will be sent to the patient by the facility within 30 days. Approximately 10% of breast cancers are not detected by mammography. A normal mammogram should not delay biopsy of a clinically suspicious abnormality. [id number] Electronically Signed: Eliot Kerr, at 9:09 EDT , Service support ,
== END | disposition home or self-care (01) ==
LOC: OPBI 15:39
PROVIDERS: PCP Family Medicine; Referring Provider Family Medicine; Visit Provider Family Medicine
DX: Z12.31 Encounter for screening mammogram for malignant neoplasm of breast (principal)
CPT/HCPCS: 77063; 77067

== ENCOUNTER → 2019-08-29 | Outpatient (CLI) | payer MEDICARE, OTHER, SELFPAY ==
[2019-02-03 16:47] VITALS: BMI 34.9
--- NOTE | 2019-08-29 09:50 | MRI_ITS ---
STUDY: MRI CERVICAL SPINE WITHOUT CONTRAST REASON FOR EXAM: Female, 74 years old. Cerv disc degeneration, neck pain, bilat arm numbness TECHNIQUE: Standardized fat and water weighted pulse sequences were obtained in the sagittal and axial planes. COMPARISON: None. FINDINGS: Cervical lordosis maintained. No significant scoliosis. No abnormal cord signal. Symmetric vascular flow voids. No acute fracture. No acute dislocation. No acute bone destruction. Mild facet joint arthrosis. No spondylolisthesis. Normal foramen magnum and brainstem-cervical cord junction. Normal craniovertebral junction. Normal anterior atlantoaxial articulation. Normal odontoid process. C2-3: Normal endplates. Mild disc desiccation. Normal central canal and intervertebral neural foramina. C3-4: Normal endplates. Shallow disc bulge. Normal central canal. Mild bilateral neural foraminal narrowing. C4-5: Normal endplates. Shallow disc bulge. Normal central canal. Severe left neural foraminal narrowing. Mild right neural foraminal narrowing. C5-6: Normal endplates. Shallow disc bulge. Normal central canal and intervertebral neural foramina. C6-7: Normal endplates. Central/left paracentral disc protrusion with minimal central canal narrowing. Normal central canal. Mild right neural foraminal narrowing. Moderate/severe left neural foraminal narrowing. C7-T1: Normal endplates. Normal disc height, signal and morphology. Normal central canal and intervertebral neural foramina. MRI/Spine Cervical (Routine) IMPRESSION: No abnormal cord signal Multilevel intervertebral disc disease with minimal C6-7 Central canal narrowing Multilevel neural foraminal narrowing most severe at the C4-5 and C6-7 levels Mild cervical spine osteoarthritis Electronically Signed: Jai Villa DO at 11:11 EDT Tel , Service support ,
== END | disposition home or self-care (01) ==
LOC: MRI 09:29
PROVIDERS: PCP Family Medicine; Referring Provider Orthopaedic Surgery; Visit Provider Orthopaedic Surgery
DX: M50.30 Other cervical disc degeneration, unspecified cervical region (principal)
CPT/HCPCS: 72141

== ENCOUNTER → 2019-09-25 | Outpatient (CLI) | payer MEDICARE, OTHER, SELFPAY ==
[2019-02-03 16:47] VITALS: BMI 34.9
== END | disposition home or self-care (01) ==
LOC: BFHLAB 09-27 10:38
PROVIDERS: PCP Family Medicine; Visit Provider Family Medicine
DX: N39.0 Urinary tract infection, site not specified (principal)
CPT/HCPCS: 87086; 87088

== ENCOUNTER 2019-10-01 16:33 | Emergency (ER) | payer MEDICARE, OTHER, SELFPAY ==
[2019-02-03 16:47] VITALS: BMI 34.9
[2019-10-01 16:33] VITALS: BP 147/82; PULSE 71; RESP 16; TEMP 36.3; O2SAT 97; BMI 34.5
--- NOTE | 2019-10-01 16:47 | CT_ITS ---
STUDY: CT ABDOMEN AND PELVIS WITHOUT CONTRAST REASON FOR EXAM: Female, 74 years old. Burning with urination and lower back pain, current tx for uti RADIATION DOSAGE (If Supplied By Facility): CTDIvol = ( 19.50 ) mGy, DLP = ( 1008.23 ) mGycm TECHNIQUE: Transaxial images were obtained from the dome of the diaphragm to the symphysis pubis without oral contrast, and without intravenous contrast. Sagittal and coronal images were reconstructed. Individualized dose optimization techniques were used for this CT. COMPARISON: None. FINDINGS: The visualized lung bases are unremarkable. The visualized portions of the heart are within normal limits. Normal liver. Status post cholecystectomy. No significant dilatation of extrahepatic biliary system. Normal spleen. Normal pancreas. Normal bilateral adrenal glands. Normal right kidney. Normal left kidney. Normal visualized stomach. Normal small intestine. Mild diffuse fecal retention in the colon. The appendix is visualized and appears normal. Normal abdominal aorta. Normal inferior vena cava. Normal retroperitoneum. Normal urinary bladder. Normal abdominal wall. Degenerative vertebral changes. Status post surgical fusion at L4 and L5. CT/Abdomen/Pelvis without Cont IMPRESSION: No acute pathology of the abdomen and pelvis. Mild colonic fecal retention. No urolithiasis. No hydronephrosis. Electronically Signed: Westley Faust DO at 18:45 EDT Tel [phone], Service support ,
--- NOTE | 2019-10-01 16:48 | ED.DCSUM_ITS ---
History of Present Illness Chief Complaint: Complaint Informant: Patient Onset: Days - Greater than 7 days ago Context: Sudden Onset Timing: Intermittent Quality: Pain Location: Right flank, right lower quadrant and suprapubic Current Severity: Mild Maximum Severity: Severe Worsened by: Specific Relieved by: Better with Percocet Associated Symptoms: Nausea and vomiting prior to arrival and dysuria Narrative: Patient 74-year-old woman who presents with urinary symptoms. She was placed on Bactrim. She is on day 7 of Bactrim with no improvement. She has no known history of renal ureterolithiasis. She does report dysuria and frequency without hematuria or urgency. There is no history of trauma. She is not noted a skin lesion. She did have episode of nausea and vomiting prior to arrival. She does report subjective fever with chills. She denies cardiac or respiratory symptoms. Prior similar symptoms: Yes Recent Illness/Hospitalization: Yes - Past Medical History (1) Anemia Status: Chronic (2) Angina pectoris Status: Chronic (3) Anxiety Status: Chronic (4) Depression Status: Chronic (5) Diabetes mellitus Status: Chronic (6) Essential hypertension Status: Chronic (7) GERD (gastroesophageal reflux disease) Status: Chronic (8) Hearing loss Status: Chronic (9) Hyperlipidemia Status: Chronic (10) Hypothyroidism Status: Chronic (11) Osteoarthritis Status: Chronic (12) Spondylolisthesis, lumbar region Status: Chronic Past Medical History - Allergies and Home Meds Allergies/Adverse Reactions: Allergies prednisone Allergy (Intermediate, Verified 01/17/19 13:20) Itching,hives codeine Allergy (Verified 01/17/19 13:20) Agitation prednisolone Allergy (Verified 01/17/19 13:20) Hives Sulfa (Sulfonamide Antibiotics) Allergy (Verified 01/17/19 13:20) Hives BEE Allergy (Uncoded 10/14/18 09:05) Anaphylaxis Primary Care Physician: Jovanni Acosta DO [Primary Care Provider] - Prior records reviewed: Yes Surgical History: cataract - Bilateral., cholecystectomy, herniorrhaphy - umbilical., hysterectomy - Total abdominal., - - Pilonidal abscess 1966, Lipoma top of head 1993, Left breast biopsy 2017, Thyroidectomy 2013, Lumbar spine surgery 01/30/2019. Lives: Spouse/ Significant Other Smoking Status: Never smoker Alcohol: None Drugs: None - Family History Paternal Family History: Family History (Last Reviewed 07/31/19 @ 14:53 by MARISA Spangler) Mother Breast cancer Heart disease Alzheimer's disease Sister Breast cancer Thyroid disorder Grandmother Breast cancer Seizures Uncle Diabetes Father Hypertension Ruptured aortic aneurysm Family History: Reports: COPD, - - Aortic aneurysm. Maternal Family History: Family History (Last Reviewed 07/31/19 @ 14:53 by MARISA Spangler) Mother Breast cancer Heart disease Alzheimer's disease Sister Breast cancer Thyroid disorder Grandmother Breast cancer Seizures Uncle Diabetes Father Hypertension Ruptured aortic aneurysm Family History: Reports: - - Alzheimer's Disease. Review of Systems General: Reports: Chills, Fever, Malaise, Subjective. Denies: Sweats, Weight loss Eyes: Denies: Visual changes - bilaterally, Blurred Vision - bilaterally ENT: Denies: Rhinorrhea, Sore throat Cardiovascular: Denies: Chest pain, Palpitations Respiratory: Denies: Dyspnea, Cough Gastrointestinal: Reports: Abdominal pain, Nausea, Vomiting. Denies: Diarrhea, Constipation, Melena, Hematochezia, -, - Genitourinary: Reports: Dysuria, Frequency. Denies: Hematuria Musculoskeletal: Reports: Back pain. Denies: Myalgias, Arthralgias, Neck pain, Swelling, Extremity Pain, -, - Skin: Denies: Rash, Wounds Neurological: Denies: Headache, Weakness, Numbness Endocrine: Denies: Polyuria, Polydipsia Hematologic: Denies: Easy bruising Physical Exam Vital Signs/Narrative: Vital Signs Temp Pulse Resp BP Pulse Ox 10/01/19 16:33 97.4 F L 71 16 147/82 H 97 Inital Vital Signs reviewed: Yes Abdomen: Soft, Nondistended, No masses, Tender - He does have tenderness in the right lower quadrant and suprapubic region., Hypoactive bowel sounds. Negative for: Nontender, Normal bowel sounds, Hepatomegaly, Splenomegaly, Mass, Pulsatile mass, Ventral hernia Rectal: Deferred Back: Nontender, Normal Inspection, CVA tenderness - Equivocal right CVA tenderness. Negative for: Spinal tenderness Extremities: Negative for: Nontender, No edema Skin: Normal color, No rash, No Trauma. Negative for: Cyanosis, Diaphoresis, Jaundice Neurological: Alert, Oriented x3, Cranial nerves II-XII grossly intact, Normal Strength, Normal Sensation, Normal Gait Psychological: Normal affect, Normal Mood Diagnostic/Tx/Re-eval Impressions Abdomen/Pelvis CT 10/01/19 16:47 IMPRESSION: No acute pathology of the abdomen and pelvis. Mild colonic fecal retention. No urolithiasis. No hydronephrosis. Electronically Signed: Westley Faust DO at 18:45 EDT Tel [phone], Service support , 10/01/19 16:47 Abdomen/Pelvis without Cont [CT] Stat Laboratory Results 10/01/19 10/01/19 10/01/19 16:40 17:20 17:20 WBC 9.8 RBC 4.67 Hgb 10.2 L Hct 35.5 L MCV 76.0 L MCH 21.8 L MCHC 28.7 L RDW Std Deviation 43.8 RDW Coeff of Guido 16.2 H Plt Count 332 MPV 10.9 Immature Gran % (Auto) 0.300 Neut % (Auto) 50.6 Lymph % (Auto) 37.4 [place] % (Auto) 7.2 Eos % (Auto) 3.4 Baso % (Auto) 1.1 H Absolute Neuts (auto) 5.0 Absolute Lymphs (auto) 3.68 Nucleated RBC % 0 Sodium 139 Potassium 4.4 Chloride 106 Carbon Dioxide 27.0 Anion Gap 6 BUN 14 Creatinine 0.92 Estim Creat Clear Calc 45.05 Est GFR (MDRD) Af Amer 77 Est GFR (MDRD) Non-Af 64 BUN/Creatinine Ratio 15.3 Glucose 103 Calcium 9.8 Urine Color Yellow Urine Clarity Sl. Cloudy Urine pH 6.5 Ur Specific [place] 1.010 Urine Protein Negative Urine Glucose (UA) Normal Urine Ketones Negative Urine Occult Blood Negative Urine Nitrite Negative Urine Bilirubin Negative Urine Urobilinogen Normal Ur Leukocyte Esterase Negative Urine RBC 0 SEEN Urine WBC 0 SEEN Ur Squamous Epith Cells 0-5 SEEN Urine Bacteria 0 SEEN Urine Mucus 0 SEEN BC is remarkable for mild anemia. Basic metabolic panel is unremarkable. UA is unremarkable. CT reveals increased fecal matter. He was informed of her results. She will be discharged to home with prescription for Bentyl and MiraLAX/Metamucil. - Medical Decision Making Differential diagnosis includes failed outpatient treatment for cystitis, pyelonephritis, infected ureteral stone, atypical presentation for appendicitis. Appropriate blood work and CAT scan was ordered. ED Disposition - Plan for ED Patient: Disposition: Home or Assisted Living Diagnosis: Right lower quadrant abdominal pain, Obstipation Instructions: ED Constipation Prescriptions: Dicyclomine HCl [Bentyl] 20 mg PO TIDAC #20 cap Transmission Status: Pending to [id number] Referrals: Jovanni Acosta DO [Primary Care Provider] - 3-5 Days if not improving Additional Instructions: Metamucil 3 times a day for the next week then twice a day.
[2019-10-01 17:22] LABS: Bacteria 0 SEEN /hpf (None Seen); Mucous, Urine 0 SEEN /hpf (<or=2+); Red Blood Cells-Urine 0 SEEN /hpf (0-5); White Blood Cells 0 SEEN /hpf (0-5)
[2019-10-01 17:24] LABS: Color, Urine Yellow (Yellow); Glucose, Dipstick Normal (Normal); Ketone-Dipstick Negative (Negative); Leukocyte Esterase-Dipstick Negative /ul (Negative); Nitrite-Dipstick Negative (Negative); Occult Blood-Urine Negative /ul (Negative); Protein-Dipstick Negative (Negative); Urine Bilirubin Dipstick Negative (Negative); Urine Clarity Sl. Cloudy (Clear); Urine Urobilinogen Normal (Normal); Urine pH 6.5 (5.0 - 8.0)
[2019-10-01] MEDS: 0.9% Normal Saline 1,000 ML 250 ML IV (17:29)
[2019-10-01 17:37] LABS: Absolute Lymphocyte Count 3.68 X10^3/uL (0.83-4.51); Basophil# 0.11 X10^3/uL; Basophil% 1.1 % (0-1); Eosinophil# 0.33 X10^3/uL; Eosinophils% 3.4 % (0-5); Hematocrit 35.5 % (37-47); Hemoglobin 10.2 g/dL (12.0-15.0); Lymphocyte # 3.68 X10^3/ul (4.0); Lymphocyte % 37.4 % (19-41); Mean Corp Hgb Conc 28.7 g/dL (32-36); Mean Corpuscular Hgb 21.8 pg (27.0-32.0); Mean Platelet Vol. 10.9 fl (6.2-12.0); Monocyte# 0.71 X10^3/uL; Monocyte% 7.2 % (0-10); NRBC Flagged by Analyzer 0 % (0-5); Neutrophil # 4.98 X10^3/uL (2.7-7.7); Neutrophil % 50.6 % (47-70); Platelet Count 332 K/mm3 (150-450); RBC Distribution Width CV 16.2 % (11.6-14.6); RBC Distribution Width SD 43.8 fl (35.1-43.9); Red Blood Count 4.67 M/mm3 (4.2-5.4); White Blood Count 9.8 K/mm3 (4.4-11.0)
[2019-10-01 17:46] LABS: Squamous Epithelial Cells - UA 0-5 SEEN /hpf (5-10)
[2019-10-01 17:57] LABS: Anion Gap 6 (5-15); BUN 14 mg/dL (7-18); BUN/Creat Ratio 15.3 RATIO (10-20); Calcium,Total 9.8 mg/dL (8.5-10.1); Chloride 106 mmol/L (98-107); Creatinine, Serum 0.92 mg/dL (0.55-1.02); EST Glomerular Filtration Rate 64 mL/min (>60); Est Glom Filt Rate - Afr Amer 77 mL/min (>60); Estimated Creatinine Clearance 45.05 ml/min; Glucose 103 mg/dL (74-106); Potassium 4.4 mmol/L (3.5-5.1); Sodium Level 139 mmol/L (136-145)
[2019-10-01] MEDS: Morphine 4 MG/ML Syringe IV (18:10)
[2019-10-01] MEDS: Dicyclomine 10 MG Capsule 20 MG PO (19:30)
[2019-10-01 19:31] VITALS: BP 147/91; PULSE 67; RESP 16; O2SAT 96
[2019-10-01 19:35] VITALS: BP 147/91; PULSE 67; RESP 16; O2SAT 97
[2019-10-01 19:36] VITALS: BP 147/91; PULSE 68
== END 2019-10-01 19:36 | disposition home or self-care (01) ==
PROVIDERS: Emergency Provider Emergency Medicine; PCP Family Medicine
DX: K59.00 Constipation, unspecified (principal); R10.31 Right lower quadrant pain; E11.36 Type 2 diabetes mellitus with diabetic cataract; I10 Essential (primary) hypertension; K21.9 Gastro-esophageal reflux disease without esophagitis; M19.90 Unspecified osteoarthritis, unspecified site; E03.9 Hypothyroidism, unspecified; E78.5 Hyperlipidemia, unspecified; F41.9 Anxiety disorder, unspecified; F32.9 Major depressive disorder, single episode, unspecified; Z79.4 Long term (current) use of insulin; Z79.899 Other long term (current) drug therapy
CPT/HCPCS: 74176; 80048; 81001; 85025; 96361; 96374; 99284; J7030

== ENCOUNTER 2020-04-09 05:53 | Day surgery (SDC) | payer MEDICARE, OTHER, SELFPAY ==
--- NOTE | 2020-04-08 10:10 | EKG12_ITS ---
Test Reason : PREOP Blood Pressure : / mmHG Vent. Rate : 070 BPM Atrial Rate : 070 BPM P-R Int : 172 ms QRS Dur : 076 ms QT Int : 396 ms P-R-T Axes : 034 027 051 degrees QTc Int : 427 ms Normal sinus rhythm Normal ECG Confirmed by LANNY LOPEZ, AFIA ([id number]), acquisitions editor NESTOR CLEMENTE ([id number]) on 04/09/2020 11:39:24 AM Referred By: Douglas Madera Confirmed By:AFIA CA MD
[2020-04-08 11:00] LABS: Anion Gap 6 (5-15); BUN 15 mg/dL (7-18); BUN/Creat Ratio 21.2 RATIO (10-20); Calcium,Total 9.6 mg/dL (8.5-10.1); Chloride 103 mmol/L (98-107); Creatinine, Serum 0.71 mg/dL (0.55-1.02); EST Glomerular Filtration Rate 86 mL/min (>60); Est Glom Filt Rate - Afr Amer 104 mL/min (>60); Glucose 126 mg/dL (74-106); Potassium 4.1 mmol/L (3.5-5.1); Sodium Level 138 mmol/L (136-145)
[2020-04-09] VITALS (7 sets, daily range): BP systolic 102–119; BP diastolic 60–71; PULSE 72–89; RESP 16–18; TEMP 36.2–36.4; O2SAT 92–96; BMI 36.2
[2020-04-09] MEDS: Lactated Ringers 1,000 ML 100 ML IV (06:45)
[2020-04-09 06:54] LABS: Bedside Glucose 175 mg/dL (70-110)
--- NOTE | 2020-04-09 07:27 | DCINST_ITS ---
You will use the following diet at home:: No restrictions Your food should be the consistency of: Regular Discharge Activity: Return to Normal Activity Call your doctor if your incision/area has: Increased Pain/ Swelling Allergies/Adverse Reactions: Allergies prednisone Allergy (Intermediate, Verified 04/09/20 06:23) Itching,hives codeine Allergy (Verified 04/09/20 06:23) Agitation prednisolone Allergy (Verified 04/09/20 06:23) Hives Sulfa (Sulfonamide Antibiotics) Allergy (Verified 04/09/20 06:23) Hives BEE Allergy (Uncoded 04/09/20 06:23) Anaphylaxis Medications to take at Discharge Diltiazem HCl [Diltiazem 24Hr ER] 300 mg PO QHS 12/15/13 Levothyroxine [Synthroid] 150 mcg PO DAILY 12/15/13 metFORMIN HCl [Glucophage] 1,000 mg PO BIDCM 07/25/16 glimepiride 4 mg tablet 4 mg PO BID tab 01/16/19 lisinopril 5 mg tablet 5 mg PO QHS tab 01/16/19 cyanocobalamin (vitamin B-12) 1,000 mcg tablet,extended release 1,000 mcg PO DAILY 07/31/19 esomeprazole magnesium 40 mg capsule,delayed release 40 mg PO DAILY 07/31/19 gabapentin 100 mg capsule 100 mg PO BID cap 07/31/19 ondansetron 4 mg disintegrating tablet 4 mg PO PRN PRN 07/31/19 sertraline 100 mg tablet 100 mg PO DAILY tab 07/31/19 tramadol 50 mg tablet 50 mg PO TID PRN 07/31/19 Inulin/Chromium Picolinate [Fiber Gummies] 2 ea PO DAILY 10/01/19 L.acidoph,Paracasei, B.lactis [Probiotic] 1 ea PO DAILY 04/02/20 Primary Care Physician: Jovanni Acosta DO [Primary Care Provider] - Test Results: Test results from this visit will be discussed in further detail at your follow- up appointment, if applicable. Please Follow Up With: Douglas Madera MD When: 1 week
--- NOTE | 2020-04-09 07:27 | PCM.OPRPT ---
Problem List (1) Hearing loss of right ear Status: Chronic Report of Operation Date of Procedure: 04/09/20 Pre-Operative Diagnosis: right hearing loss Post-Operative Diagnosis: right hearing loss Surgery/Procedure Performed:: removal and replacement of osseointegrated implant, right ear Type of Anesthesia:: General Description of Procedure: on the day of the procedure, after appropriate informed consent was obtained, the patient was brought to the operating room and placed in supine position on the operating table. she was placed under general endotracheal anesthesia. the tube was secured, the eyes were taped. the table was rotated 90 degrees toward the surgeon. the right ear was prepped and draped in sterile fashion. the implant was circumferentially injected with lidocaine/epinephrine. the wound and prior abutment site was examined. the implant, which was assumed to be in place, was actually out with the abutment. the area was probed and only mastoid bone was seen. thus, the procedure was aborted for further imaging and evaluation of the implant site. the patient was awoken from anesthesia and transferred to the PACU in stable condition.
[2020-04-09] MEDS: Lidocaine 1% /Epi 1:100 (20ml) 20 ML Vial (07:47)
== END 2020-04-09 09:33 | disposition home or self-care (01) ==
LOC: SDC 05:53 → AC 05:54
PROVIDERS: PCP Family Medicine; Referring Provider Otolaryngology; Visit Provider Otolaryngology
PROC: (CPT 69710; principal; 2020-04-09 07:15)
DX: H90.3 Sensorineural hearing loss, bilateral (principal); I10 Essential (primary) hypertension; K21.9 Gastro-esophageal reflux disease without esophagitis; F32.9 Major depressive disorder, single episode, unspecified; F41.9 Anxiety disorder, unspecified; E06.9 Thyroiditis, unspecified; Z20.822 Contact with and (suspected) exposure to COVID-19; Z79.899 Other long term (current) drug therapy
CPT/HCPCS: 69717; 36415; 80048; 82962; 87426; 93005; C9803; J7120; J2405

== ENCOUNTER 2020-04-18 14:25 | Outpatient (RCR) | payer MEDICARE, OTHER, SELFPAY ==
[2020-04-09 06:27] VITALS: BMI 36.2
[2020-04-18] MEDS: COVID-19 VACC, MRNA(PFIZER)/PF 30 MCG/0.3 ML SYRINGE IM (12:32)
[2020-05-09] MEDS: COVID-19 VACC, MRNA(PFIZER)/PF 30 MCG/0.3 ML SYRINGE IM (12:13)
== END 2020-04-18 23:59 ==
LOC: IMMUN 14:25
PROVIDERS: PCP Family Medicine; Visit Provider Family Medicine
DX: Z23 Encounter for immunization (principal)
CPT/HCPCS: 0001A; 0002A

== ENCOUNTER → 2020-04-19 07:53 | Outpatient (CLI) | payer MEDICARE, OTHER, SELFPAY ==
[2020-04-09 06:27] VITALS: BMI 36.2
--- NOTE | 2020-04-19 07:55 | CT_ITS ---
STUDY: CT TEMPORAL BONES WITHOUT CONTRAST - ATTN: I.A.C. S REASON FOR EXAM: Female, 75 years old. OSTEOMYELITIS. Status post right mastoid cochlear implant. RADIATION DOSAGE (If Supplied By Facility): CTDIvol = ( 67.58 ) mGy, DLP = ( 675.39 ) mGycm TECHNIQUE: The patient was scanned in a multi detector CT scanner. Transaxial imaging was performed without the administration of intravenous contrast material. Sagittal and coronal images were reconstructed. Individualized dose optimization techniques were used for this CT. COMPARISON: None. FINDINGS: RIGHT TEMPORAL BONE Normal right internal auditory canal. Normal visualized ossicles and tympanic cavity. Normal right cochlea and semicircular canals. Normal vestibular aqueduct. Normal right petrous carotid artery. Normal right jugular fossa. Normal right mastoid air cells. Normal right petrous apex. LEFT TEMPORAL BONE Normal left internal auditory canal. Normal visualized ossicles and tympanic cavity. Normal left cochlea and semicircular canals. Normal vestibular aqueduct. Normal left petrous carotid artery. Normal right jugular fossa. Normal left mastoid air cells. Normal left petrous apex. CT/Orb Sella Post Fossa Ear w/o IMPRESSION: Normal unenhanced CT examination of the bilateral temporal bones (I.A.C.''s). Electronically Signed: Eliot Kerr MD at 10:04 EST , Service support ,
== END ==
PROVIDERS: PCP Family Medicine; Referring Provider Otolaryngology; Visit Provider Otolaryngology
DX: M86.68 Other chronic osteomyelitis, other site (principal)
CPT/HCPCS: 70480

== ENCOUNTER → 2020-04-29 14:05 | Outpatient (CLI) | payer MEDICARE, OTHER, SELFPAY ==
[2020-04-09 06:27] VITALS: BMI 36.2
== END ==
PROVIDERS: PCP Family Medicine; Visit Provider Family Medicine
DX: Z03.818 Encounter for observation for suspected exposure to other biological agents ruled out (principal)
CPT/HCPCS: 87635; U0002; U0003

== ENCOUNTER → 2020-07-17 13:01 | Outpatient (CLI) | payer MEDICARE, OTHER, SELFPAY ==
[2020-04-09 06:27] VITALS: BMI 36.2
--- NOTE | 2020-07-17 13:03 | BI_ITS ---
MAMMOGRAPHY - BILATERAL SCREENING REASON FOR EXAM: Female, 75 years old. Routine annual screening examination. PERTINENT HISTORY: Sister with breast cancer. Grandmother with breast cancer. Aunt with breast cancer. TECHNIQUE: Digital bilateral breast daniela (3D mammographic acquisition) in the CC and MLO projections. 2-D mediolateral oblique (MLO) and craniocaudad (CC) views of both breasts were obtained. CAD: Full Field Digital Mammography with Computer Added Detection was performed. COMPARISON: Comparison is made with prior study dated 07/14/2019 and 10/12/2018. FINDINGS: Breast Composition: There are scattered areas of fibroglandular density. There are no dominant masses or suspicious calcifications. A patient marker is once again seen and a tiny nodule in the superior lateral aspect of the left breast. Stable benign-appearing bilateral axillary lymph nodes. No other significant abnormalities are identified. There has been no significant change since the prior study. BI/SCRN MAMM (CAD)W/DANIELA BILAT IMPRESSION: Stable bilateral screening mammogram. Yearly follow-up mammogram recommended. (A) ASSESSMENT CATEGORY: BIRADS Category 2: Benign. A letter regarding these results will be sent to the patient by the facility within 30 days. Approximately 10% of breast cancers are not detected by mammography. A normal mammogram should not delay biopsy of a clinically suspicious abnormality. [id number] Electronically Signed: Eliot Kerr MD at 14:46 EDT , Service support ,
== END ==
PROVIDERS: PCP Family Medicine; Referring Provider Family Medicine; Visit Provider Family Medicine
DX: Z12.31 Encounter for screening mammogram for malignant neoplasm of breast (principal)
CPT/HCPCS: 77063; 77067

== ENCOUNTER → 2020-11-25 08:10 | Outpatient (CLI) | payer MEDICARE, OTHER, SELFPAY ==
[2019-02-03 16:47] VITALS: BMI 34.9
[2020-04-09 06:27] VITALS: BMI 36.2
[2020-11-25 09:57] LABS: Absolute Lymphocyte Count 3.82 X10^3/uL (0.83-4.51); Absolute Neutrophil Count 5.9 X10^3/uL (2.0-7.7); Basophil# 0.12 X10^3/uL; Basophil% 1.1 % (0-1); Eosinophil# 0.55 X10^3/uL; Hematocrit 37.7 % (37-47); Hemoglobin 10.7 g/dL (12.0-15.0); Lymphocyte # 3.82 X10^3/ul (0.83-4.51); Lymphocyte % 34.4 % (19-41); Mean Corp Hgb Conc 28.4 g/dL (32-36); Mean Corpuscular Hgb 21.4 pg (27.0-32.0); Mean Corpuscular Volume 75.6 fL (81-99); Mean Platelet Vol. 11.1 fl (6.2-12.0); Monocyte# 0.72 X10^3/uL; Monocyte% 6.5 % (0-10); NRBC Flagged by Analyzer 0 % (0-5); Neutrophil # 5.86 X10^3/uL (2.7-7.7); Neutrophil % 52.6 % (47-70); Platelet Count 319 K/mm3 (150-450); RBC Distribution Width CV 16.5 % (11.6-14.6); RBC Distribution Width SD 44.4 fl (35.1-43.9); Red Blood Count 4.99 M/mm3 (4.2-5.4); White Blood Count 11.1 K/mm3 (4.4-11.0)
[2020-11-25 10:10] LABS: Hemoglobin A1c 7.2 % (3.8-5.6)
[2020-11-25 10:17] LABS: Microalbumin,Random Urine 6.8 mg/L (NO RANGE EST.); Microalbumin:Creatinine Ratio 8.1 mg/g CRE (<30 mg/g CRE)
[2020-11-25 10:19] LABS: ALB/GLOB Ratio 0.8 RATIO (0.9-2.4); AST(SGOT) 17 U/L (15-37); Alanine Aminotransfer ALT/SGPT 28 U/L (13-56); Albumin, Serum 3.2 g/dL (3.2-5.0); Alkaline Phosphatase 73 U/L (45-117); Anion Gap 7 (5-15); BUN 13 mg/dL (7-18); BUN/Creat Ratio 18.5 RATIO (10-20); Calcium,Total 10.3 mg/dL (8.5-10.1); Chloride 105 mmol/L (98-107); Cholesterol 192 mg/dL (200); EST Glomerular Filtration Rate 86 mL/min (>60); Est Glom Filt Rate - Afr Amer 104 mL/min (>60); Ferritin 10 ng/mL (8-252); Glucose 110 mg/dL (74-106); High Density Lipoprotein 53 mg/dL; Iron 22 ug/dL (50-170); Potassium 3.9 mmol/L (3.5-5.1); Protein, Total 7.2 g/dL (6.4-8.2); Sodium Level 139 mmol/L (136-145); Thyroid Stim Hormone (TSH) 1.32 uIU/mL (0.358-3.74); Triglycerides 184 mg/dL; Very Low Density Lipoprotein 37 mg/dL (5-40)
== END ==
PROVIDERS: PCP Family Medicine; Referring Provider Family Medicine; Visit Provider Family Medicine
DX: E11.9 Type 2 diabetes mellitus without complications (principal); E03.9 Hypothyroidism, unspecified; K76.0 Fatty (change of) liver, not elsewhere classified; D50.9 Iron deficiency anemia, unspecified
CPT/HCPCS: 36415; 80053; 80061; 82043; 82570; 82728; 83036; 83540; 84443; 85025

== ENCOUNTER 2021-03-26 12:07 | Outpatient (CLI) | payer MEDICARE, OTHER, SELFPAY ==
--- NOTE | 2021-03-26 12:12 | RAD_ITS ---
STUDY: X-RAY - UNILATERAL RIBS ( LEFT ) WITH CHEST REASON FOR EXAM: Female, 76 years old. Fall. Pain. TECHNIQUE - RIBS: 4 view(s) of the ribs. TECHNIQUE - CHEST: Single frontal view of the chest. COMPARISON: 01/11/2017. FINDINGS - RIBS: Osteopenia of the osseous structures. No displaced rib fracture identified. FINDINGS - CHEST: Stable low volume inspiration. There is no demonstrated pleural abnormality. Normal size heart. Normal mediastinum and luis alfredo. Normal visualized pulmonary arteries. Normal visualized aortic arch and descending thoracic aorta. Normal visualized thoracic spine. Osteoarthrosis of the left glenohumeral and acromioclavicular joints. There is no demonstrated abnormality of the visualized soft tissue structures of the upper abdomen. RAD/Ribs Uni Min 3V w/PA Chest IMPRESSION: RIBS: Osteopenia with no displaced rib fracture. CHEST: No active or acute cardiopulmonary disease. Electronically Signed: Alvaro Sanchez MD at 13:19 EST ,
--- NOTE | 2021-03-26 12:12 | RAD_ITS ---
STUDY: X-RAY - LUMBAR SPINE REASON FOR EXAM: Female, 76 years old. several falls lately, left side rib and back pain TECHNIQUE: 4 view(s) of the lumbar spine were obtained. COMPARISON: None FINDINGS: Normal lumbar lordosis. There is a levoscoliosis of the lumbar spine. There is a normal alignment of the vertebrae. There is diffuse demineralization with multi-level endplate spondylosis. There is multi-level degenerative disc disease with multi-level disc space narrowing. Bilateral pedicular screws with posterior fusion at L4-L5. Multilevel facet arthropathy. No compression fracture. The soft tissue structures are unremarkable. RAD/L/S Spine Min 4 Views IMPRESSION: Multilevel degenerative disc disease with lower lumbar fusion. No compression fracture. Electronically Signed: Daniel Hubbard MD ([facility]) at 14:15 EST ,
== END 2021-03-26 23:59 | disposition home or self-care (01) ==
LOC: MTRAD 12:10
PROVIDERS: PCP Family Medicine; Referring Provider Family Medicine; Visit Provider Family Medicine
DX: M54.50 Low back pain, unspecified (principal); R10.9 Unspecified abdominal pain
CPT/HCPCS: 71101; 72110

== ENCOUNTER → 2021-07-18 | Outpatient (CLI) | payer MEDICARE, OTHER, SELFPAY ==
--- NOTE | 2021-07-18 14:39 | BI_ITS ---
DIGITAL MAMMOGRAPHY - BILATERAL SCREENING TOMOSYNTHESIS REASON FOR EXAM: 76-year-old female patient., old. Routine annual screening examination. PERTINENT HISTORY: Sister with breast cancer. Grandmother with breast cancer. Aunt with breast cancer. TECHNIQUE: Digital bilateral breast tomosynthesis (3-D mammographic acquisition) in the CC and MLO projections. 2D and 3D tomographic imaging in the CC and MLO projections. CAD: Computer Aided Detection was performed on this study. COMPARISON: Comparison is made with prior examination dated 07/17/2020 and 07/14/2019. FINDINGS: Breast Composition: There are scattered areas of fibroglandular density. There are no dominant masses or suspicious calcifications. Stable benign-appearing bilateral axillary lymph nodes. A tissue clip marker tablets again seen and a tiny nodule in the superior lateral aspect of the left breast anteriorly. No other significant abnormalities are identified. There has been no significant change since the prior study. BI/SCRN MAMM (CAD)W/DANIELA BILAT IMPRESSION: Benign findings. ASSESSMENT CATEGORY: BIRADS Category 2: Benign. FOLLOW UP RECOMMENDATION: Yearly follow up mammogram recommended. The patient''s recall information has been entered into the Facility Reminder System. Approximately 10% of breast cancers are not detected by mammography. A normal mammogram should not delay biopsy of a clinically suspicious abnormality. Electronically Signed: Eliot Kerr MD at 16:24 EDT ,
== END | disposition home or self-care (01) ==
LOC: OPBI 14:37
PROVIDERS: PCP Family Medicine; Referring Provider Family Medicine; Visit Provider Family Medicine
DX: Z12.31 Encounter for screening mammogram for malignant neoplasm of breast (principal); Z80.3 Family history of malignant neoplasm of breast
CPT/HCPCS: 77063; 77067

== ENCOUNTER → 2021-10-02 | Outpatient (CLI) | payer MEDICARE, OTHER, SELFPAY ==
--- NOTE | 2021-10-02 13:51 | RAD_ITS ---
EXAM: XR CERVICAL SPINE, 4 OR 5 VIEWS CLINICAL INDICATION: CERVICAL PAIN TECHNIQUE: Frontal, lateral and bilateral oblique views of the cervical spine. This report was created using [employer] report RF nano technology. COMPARISON: None. FINDINGS: VERTEBRAE: The odontoid process is obscured by the overlying hard palate on the open mouth view. Therefore, it is not fully evaluated by plain film. Preserved vertebral body height. No acute fracture. No spondylolisthesis. Preservation of the normal cervical lordosis. No significant facet arthropathy. DISC SPACES: Unremarkable. Disc spaces are maintained. SOFT TISSUES: See above. LUNG APICES: Clear. RAD/Cerv Spine 4 or 5 Views IMPRESSION: The odontoid process is obscured by the overlying hard palate on the open mouth view. Therefore, it is not fully evaluated by plain film. Electronically Signed: Patrick Roberts MD at 14:44 EDT ,
== END | disposition home or self-care (01) ==
LOC: MTRAD 13:50
PROVIDERS: PCP Family Medicine; Referring Provider Nurse Practitioner Family; Visit Provider Nurse Practitioner Family
DX: M54.2 Cervicalgia (principal)
CPT/HCPCS: 72050

== ENCOUNTER → 2022-05-11 | Outpatient (CLI) | payer MEDICARE, OTHER, SELFPAY ==
[2022-05-11 17:56] LABS: Absolute Lymphocyte Count 4.53 X10^3/uL (0.83-4.51); Basophil# 0.14 X10^3/uL; Basophil% 0.9 % (0-1); Eosinophil# 0.27 X10^3/uL; Eosinophils% 1.8 % (0-5); Hematocrit 40.1 % (37-47); Hemoglobin 11.3 g/dL (12.0-15.0); Lymphocyte # 4.53 X10^3/ul (0.83-4.51); Lymphocyte % 30.1 % (19-41); Mean Corp Hgb Conc 28.2 g/dL (32-36); Mean Corpuscular Hgb 21.3 pg (27.0-32.0); Mean Corpuscular Volume 75.5 fL (81-99); Mean Platelet Vol. 11.8 fl (6.2-12.0); Monocyte% 7.3 % (0-10); NRBC Flagged by Analyzer 0 % (0-5); Neutrophil # 8.96 X10^3/uL (2.7-7.7); Neutrophil % 59.5 % (47-70); Platelet Count 360 K/mm3 (150-450); RBC Distribution Width CV 17.2 % (11.6-14.6); RBC Distribution Width SD 45.7 fl (35.1-43.9); Red Blood Count 5.31 M/mm3 (4.2-5.4); White Blood Count 15.1 K/mm3 (4.4-11.0)
[2022-05-11 18:51] LABS: ALB/GLOB Ratio 0.9 RATIO (0.9-2.4); AST(SGOT) 27 U/L (15-37); Alanine Aminotransfer ALT/SGPT 34 U/L (13-56); Albumin, Serum 3.6 g/dL (3.2-5.0); Alkaline Phosphatase 87 U/L (45-117); Anion Gap 4 (5-15); BUN 19 mg/dL (7-18); BUN/Creat Ratio 25.6 RATIO (10-20); Calcium,Total 10.8 mg/dL (8.5-10.1); Chloride 106 mmol/L (98-107); Cholesterol 194 mg/dL (200); Creatinine, Serum 0.74 mg/dL (0.55-1.02); EST Glomerular Filtration Rate 81 mL/min (>60); Est Glom Filt Rate - Afr Amer 98 mL/min (>60); Globulin 3.9 g/dL (2.2-4.2); Glucose 148 mg/dL (74-106); High Density Lipoprotein 58 mg/dL; Potassium 5.4 mmol/L (3.5-5.1); Protein, Total 7.5 g/dL (6.4-8.2); Sodium Level 138 mmol/L (136-145); Triglycerides 220 mg/dL; Very Low Density Lipoprotein 44 mg/dL (5-40)
[2022-05-11 19:03] LABS: Microalbumin,Random Urine 10.2 mg/L (NO RANGE EST.); Microalbumin:Creatinine Ratio 11.2 mg/g CRE (<30 mg/g CRE)
== END | disposition home or self-care (01) ==
LOC: BFHLAB 15:02
PROVIDERS: PCP Family Medicine; Referring Provider Family Medicine; Visit Provider Family Medicine
DX: E11.9 Type 2 diabetes mellitus without complications (principal); E03.9 Hypothyroidism, unspecified; D50.9 Iron deficiency anemia, unspecified
CPT/HCPCS: 36415; 80053; 80061; 82043; 82570; 84443; 85025

== ENCOUNTER → 2022-05-19 | Outpatient (CLI) | payer MEDICARE, OTHER, SELFPAY ==
[2022-05-19 17:53] LABS: Basophil% 0.7 % (0-1); Eosinophil# 0.24 X10^3/uL; Eosinophils% 1.7 % (0-5); Hematocrit 37.7 % (37-47); Hemoglobin 10.6 g/dL (12.0-15.0); Lymphocyte % 25.8 % (19-41); Mean Corp Hgb Conc 28.1 g/dL (32-36); Mean Corpuscular Hgb 21.1 pg (27.0-32.0); Mean Corpuscular Volume 75.1 fL (81-99); Mean Platelet Vol. 11.3 fl (6.2-12.0); Monocyte# 1.03 X10^3/uL; Monocyte% 7.4 % (0-10); NRBC Flagged by Analyzer 0 % (0-5); Neutrophil # 8.95 X10^3/uL (2.7-7.7); Platelet Count 364 K/mm3 (150-450); RBC Distribution Width CV 17.7 % (11.6-14.6); RBC Distribution Width SD 46.5 fl (35.1-43.9); Red Blood Count 5.02 M/mm3 (4.2-5.4)
[2022-05-19 18:27] LABS: Vitamin D,25 Hydroxy 9.6 ng/mL
[2022-05-19 18:34] LABS: Anion Gap 7 (5-15); BUN 20 mg/dL (7-18); Calcium,Total 10.4 mg/dL (8.5-10.1); Chloride 106 mmol/L (98-107); Creatinine, Serum 0.77 mg/dL (0.55-1.02); EST Glomerular Filtration Rate 77 mL/min (>60); Est Glom Filt Rate - Afr Amer 94 mL/min (>60); Glucose 133 mg/dL (74-106); Potassium 3.8 mmol/L (3.5-5.1); Sodium Level 138 mmol/L (136-145)
[2022-05-20 08:10] LABS: PTHIN 126.6 pg/mL (18.4-80.1)
[2022-05-22 14:09] LABS: PROEL- Albumin 3.3 g/dL (2.9-4.4); PROEL- Alpha-1 Globulin 0.2 g/dL (0.0-0.4); PROEL- Beta Globulin 1.3 g/dL (0.7-1.3); PROEL- Gamma Globulin 0.7 g/dL (0.4-1.8); PROEL- Globulin, Total 3.2 g/dL (2.2-3.9); PROEL- TOTAL PROTEIN 6.5 g/dL (6.0-8.5); PROELU- Albumin, Urine 29.1 % (.); PROELU- Alpha-1-Globulin,Ur 6.9 % (.); PROELU- Alpha-2-Globulin,Ur 18.7 % (.); PROELU- Beta Globulin, Ur 29.1 % (.); PROELU- Gamma Globulin, Ur 16.2 % (.); Total Protein, Ur 12.3 mg/dL (Not Estab.)
[2022-05-22 15:20] LABS: Vitamin D 1,25-Dihydroxy 47.3 pg/mL (24.8-81.5)
== END | disposition home or self-care (01) ==
PROVIDERS: PCP Family Medicine; Referring Provider Family Medicine; Visit Provider Family Medicine
DX: D72.829 Elevated white blood cell count, unspecified (principal); E87.5 Hyperkalemia; E83.52 Hypercalcemia
CPT/HCPCS: 36415; 80048; 82306; 82330; 82652; 83970; 84165; 84166; 85025

== ENCOUNTER → 2022-06-10 | Outpatient (CLI) | payer MEDICARE, OTHER, SELFPAY ==
--- NOTE | 2022-06-10 11:08 | BD_ITS ---
STUDY: DUAL ENERGY X-RAY ABSORPTIOMETRY / DXA REASON FOR EXAM: Female, 77 years old. [id number] TECHNIQUE: Bone Mineral Density (BMD) measurements of lumbar spine and bilateral hips were obtained. COMPARISON: None. FINDINGS: Lumbar Spine (L1-L4): g/cm2 (1.025) / T-score (0.4) / Z-score (2.7) Findings are suggestive of normal bone density with a low fracture risk. Left Femur Total: g/cm2 (0.774) / T-score (-1.4) / Z-score (0.5) Left Femoral Neck: g/cm2 (0.511) / T-score (-3.0) / Z-score (-0.9) Right Femur Total: g/cm2 (0.701) / T-score (-2.0) / Z-score (-0.1) Right Femoral Neck: g/cm2 (0.495) / T-score (-3.2) / Z-score (-1.0) BD/Dexa Bone Density Study IMPRESSION: The patient is considered osteoporotic as outlined below according to World [employer] Organization (WHO) criteria with a high fracture risk. Reference Information: The T-score is the number of standard deviations above or below the standard which is normal for young adults at their peak bone mineral density. The World Health Organization (WHO) interprets the T-scores as follows: Above -1 Normal bone density Between -1 and -2.5 Osteopenia Equal to / or below -2.5 Osteoporosis As a practical clinical guideline, osteopenia may be graded as follows: Mild -1 through -1.5 Moderate -1.6 through -2.0 Severe -2.1 through -2.4 The Z-score is the number of standard deviations above or below age-matched controls. A Z-score of less than -1.5 would be considered abnormal. References: 1. NIH Osteoporosis and Related Bone Diseases www osteo.org 2. International Society for Clinical Densitometry www iscd.org 3. National Osteoporosis Foundation www nof.org Electronically Signed: Eliot Kerr MD at 15:48 EDT ,
--- NOTE | 2022-06-10 11:40 | RAD_ITS ---
EXAM: XR ABDOMEN, 1 VIEW CLINICAL INDICATION: HYPERPARATHYROIISM TECHNIQUE: Frontal supine view of the abdomen/pelvis. This report was created using [employer] report generation technology. COMPARISON: None. FINDINGS: LOWER THORAX: No acute pathology. GASTROINTESTINAL TRACT: Unremarkable. Non-obstructive. No bowel or stomach distention. ORGANS: Unremarkable as visualized. No organomegaly. No abnormal calcifications. BONES/JOINTS: There are bilateral pedicle screws at L4 and L5. SOFT TISSUES: No acute pathology. RAD/Abdomen Single View IMPRESSION: No acute findings. Electronically Signed: Randall Chávez MD at 23:53 EDT ,
== END | disposition home or self-care (01) ==
LOC: OPBD 10:59
PROVIDERS: PCP Family Medicine; Referring Provider Family Medicine; Visit Provider Family Medicine
DX: E21.0 Primary hyperparathyroidism (principal)
CPT/HCPCS: 74018; 77080

== ENCOUNTER → 2022-10-26 | Outpatient (CLI) | payer MEDICARE, OTHER, SELFPAY ==
--- NOTE | 2022-10-26 13:36 | BI_ITS ---
MAMMOGRAPHY - BILATERAL SCREENING REASON FOR EXAM: Female, 77 years old. Routine annual screening examination. PERTINENT HISTORY: Sisters with breast cancer.. Grandmother with breast cancer. Prior left breast biopsy. TECHNIQUE: Digital bilateral breast daniela (3D mammographic acquisition) in the CC and MLO projections. 2-D mediolateral oblique (MLO) and craniocaudad (CC) views of both breasts were obtained. CAD: Full Field Digital Mammography with Computer Added Detection was performed. COMPARISON: Comparison is made with prior study dated July 18, 2021 and July 17, 2020. FINDINGS: Breast Composition: There are scattered areas of fibroglandular density. There are no dominant masses or suspicious calcifications. Stable benign appearing bilateral axillary lymph nodes. A tissue clip marker is once again seen in a tiny nodule in the superior lateral aspect of the left breast anteriorly. No other significant abnormalities are identified. There has been no significant change since the prior study. BI/SCRN MAMM (CAD)W/DANIELA BILAT IMPRESSION: Stable bilateral screening mammogram. Yearly follow-up mammogram recommended. (A) ASSESSMENT CATEGORY: BIRADS Category 2: Benign. A letter regarding these results will be sent to the patient by the facility within 30 days. Approximately 10% of breast cancers are not detected by mammography. A normal mammogram should not delay biopsy of a clinically suspicious abnormality. [id number] Electronically Signed: Eliot Kerr MD at 15:16 EDT ,
== END | disposition home or self-care (01) ==
LOC: OPBI 13:34
PROVIDERS: PCP Family Medicine; Referring Provider Family Medicine; Visit Provider Family Medicine
DX: Z12.31 Encounter for screening mammogram for malignant neoplasm of breast (principal); Z80.3 Family history of malignant neoplasm of breast
CPT/HCPCS: 77063; 77067

== ENCOUNTER → 2022-12-23 | Outpatient (CLI) | payer MEDICARE, OTHER, SELFPAY ==
[2022-12-23 12:02] LABS: Calcium,Total 10.3 mg/dL (8.5-10.1)
[2022-12-23 12:03] LABS: PTHIN 111.7 pg/mL (18.4-80.1)
== END | disposition home or self-care (01) ==
LOC: PAVLAB 11:35
PROVIDERS: PCP Family Medicine; Referring Provider Internal Medicine Endocrinology, Diabetes & Metabolism; Visit Provider Internal Medicine Endocrinology, Diabetes & Metabolism
DX: E55.9 Vitamin D deficiency, unspecified (principal); N25.81 Secondary hyperparathyroidism of renal origin; M81.0 Age-related osteoporosis without current pathological fracture
CPT/HCPCS: 36415; 82306; 82310; 83970

== ENCOUNTER 2023-01-08 12:22 | Outpatient (CLI) | payer MEDICARE, OTHER, SELFPAY ==
[2023-01-08 12:50] VITALS: BP 119/70; PULSE 76; RESP 16; TEMP 36.2; O2SAT 95
[2023-01-08] MEDS: DENOSUMAB 60 MG/ML SC (12:56)
== END 2023-01-08 12:23 | disposition home or self-care (01) ==
LOC: MEDOUTP 12:23
PROVIDERS: PCP Family Medicine; Referring Provider Internal Medicine Endocrinology, Diabetes & Metabolism; Visit Provider Internal Medicine Endocrinology, Diabetes & Metabolism
DX: M81.0 Age-related osteoporosis without current pathological fracture (principal)
CPT/HCPCS: 96372; J0897

== ENCOUNTER → 2023-07-14 | Outpatient (CLI) | payer MEDICARE, OTHER, SELFPAY ==
--- NOTE | 2023-07-14 15:37 | RAD_ITS ---
STUDY: X-RAY - UNILATERAL RIBS ( LEFT ) WITH CHEST REASON FOR EXAM: Female, 78 years old. FALL/RULE OUT FRACTURES TECHNIQUE - RIBS: 3 view(s) of the ribs. TECHNIQUE - CHEST: Single AP portable view of the chest. COMPARISON: None. FINDINGS - RIBS: Normal visualized ribs without a demonstrated fracture. FINDINGS - CHEST: The lungs are clear and expanded. There is no demonstrated pleural abnormality. Normal size heart. Normal mediastinum and luis alfredo. Normal visualized pulmonary arteries. Normal visualized aortic arch and descending thoracic aorta. There are diffuse degenerative changes of the visualized thoracic spine. There is degenerative osteoarthritis of the bilateral shoulders. There is no demonstrated abnormality of the visualized soft tissue structures of the upper abdomen. RAD/Ribs Uni Min 3V w/PA Chest IMPRESSION: RIBS: Normal x-ray examination of the ribs. CHEST: No definite acute or significant abnormality seen. Electronically Signed: Luther Corbin MD at 17:26 EDT ,
--- NOTE | 2023-07-14 15:45 | RAD_ITS ---
STUDY: X-RAY - PELVIS AND RIGHT HIP REASON FOR EXAM: Female, 78 years old. FALL/RULE OUT FRACTURES TECHNIQUE: 2 views of the pelvis and hip. COMPARISON: None. FINDINGS: There is a non-specific bowel gas pattern. Normal visualized soft tissue structures. Grossly negative visualized right pelvis. Normal visualized femoral head. Mild sclerosis and irregularities of the acetabulum. There is moderate articular joint space narrowing of the hip. RAD/HIP, UNI W/ Pelvis 2-3 Views IMPRESSION: No acute fracture or dislocation. Degenerative changes of the left hip. Electronically Signed: Luther Corbin MD at 17:13 EDT ,
== END | disposition home or self-care (01) ==
LOC: MTRAD 15:35
PROVIDERS: PCP Family Medicine; Referring Provider Nurse Practitioner Family; Visit Provider Nurse Practitioner Family
DX: M25.551 Pain in right hip (principal); R07.81 Pleurodynia
CPT/HCPCS: 71101; 73502

== ENCOUNTER → 2023-09-30 | Outpatient (CLI) | payer MEDICARE, OTHER, SELFPAY ==
[2023-09-30 12:45] LABS: ALB/GLOB Ratio 0.9 RATIO (0.9-2.4); AST(SGOT) 28 U/L (15-37); Alanine Aminotransfer ALT/SGPT 47 U/L (13-56); Albumin, Serum 3.3 g/dL (3.2-5.0); Alkaline Phosphatase 63 U/L (45-117); Anion Gap 9 (5-15); BUN 10 mg/dL (7-18); BUN/Creat Ratio 14.2 RATIO (10-20); Calcium,Total 10.1 mg/dL (8.5-10.1); Chloride 105 mmol/L (98-107); EST Glomerular Filtration Rate 86 mL/min (>60); Est Glom Filt Rate - Afr Amer 104 mL/min (>60); Globulin 3.8 g/dL (2.2-4.2); Glucose 193 mg/dL (74-106); Potassium 4.3 mmol/L (3.5-5.1); Protein, Total 7.1 g/dL (6.4-8.2); Sodium Level 137 mmol/L (136-145)
[2023-09-30 13:33] LABS: PTHIN 115.9 pg/mL (18.4-80.1)
[2023-09-30 13:39] LABS: Vitamin D,25 Hydroxy 56.2 ng/mL
== END | disposition home or self-care (01) ==
PROVIDERS: PCP Family Medicine; Referring Provider Internal Medicine Endocrinology, Diabetes & Metabolism; Visit Provider Internal Medicine Endocrinology, Diabetes & Metabolism
DX: M81.0 Age-related osteoporosis without current pathological fracture (principal); E03.9 Hypothyroidism, unspecified; E21.0 Primary hyperparathyroidism; E55.9 Vitamin D deficiency, unspecified
CPT/HCPCS: 36415; 80053; 82306; 83970

== ENCOUNTER → 2023-10-28 | Outpatient (CLI) | payer MEDICARE, OTHER, SELFPAY ==
--- NOTE | 2023-10-28 14:04 | BI_ITS ---
MAMMOGRAPHY - BILATERAL SCREENING REASON FOR EXAM: Female, 78 years old. Routine annual screening examination. PERTINENT HISTORY: Sisters with breast cancer. Prior left ultrasound-guided breast biopsy. Grandmother with breast cancer. Aunt with breast cancer. TECHNIQUE: Digital bilateral breast daniela (3D mammographic acquisition) in the CC and MLO projections. 2-D mediolateral oblique (MLO) and craniocaudad (CC) views of both breasts were obtained. CAD: Full Field Digital Mammography with Computer Added Detection was performed. COMPARISON: Comparison is made with prior study dated October 26, 2022 and July 18, 2021. FINDINGS: Breast Composition: There are scattered areas of fibroglandular density. There are no dominant masses or suspicious calcifications. A tissue clip marker points again seen in the tiny nodule in the superior lateral aspect of the left breast anteriorly. Stable bilateral fat containing axillary lymph nodes. No other significant abnormalities are identified. There has been no significant change since the prior study. BI/SCRN MAMM (CAD)W/DANIELA BILAT IMPRESSION: Stable bilateral screening mammogram. Yearly follow-up mammogram recommended. (A) ASSESSMENT CATEGORY: BIRADS Category 2: Benign. A letter regarding these results will be sent to the patient by the facility within 30 days. Approximately 10% of breast cancers are not detected by mammography. A normal mammogram should not delay biopsy of a clinically suspicious abnormality. [id number] Electronically Signed: Eliot Kerr MD at 15:34 EDT ,
== END | disposition home or self-care (01) ==
LOC: OPBI 14:02
PROVIDERS: PCP Family Medicine; Referring Provider Family Medicine; Visit Provider Family Medicine
DX: Z12.31 Encounter for screening mammogram for malignant neoplasm of breast (principal)
CPT/HCPCS: 77063; 77067

== ENCOUNTER → 2023-12-06 | Outpatient (CLI) | payer MEDICARE, OTHER, SELFPAY ==
[2023-12-06 15:51] LABS: Cholesterol 212 mg/dL (200); High Density Lipoprotein 51 mg/dL; T4 Free Direct 1.28 ng/dL (0.76-1.46); Thyroid Stim Hormone (TSH) 0.231 uIU/mL (0.358-3.740); Triglycerides 224 mg/dL; Very Low Density Lipoprotein 45 mg/dL (5-40)
[2023-12-06 16:24] LABS: Hemoglobin A1c 7.2 % (3.8-5.6)
== END | disposition home or self-care (01) ==
LOC: BFHLAB 13:15
PROVIDERS: PCP Family Medicine; Referring Provider Family Medicine; Visit Provider Family Medicine
DX: E11.9 Type 2 diabetes mellitus without complications (principal); E03.9 Hypothyroidism, unspecified
CPT/HCPCS: 36415; 80061; 83036; 84439; 84443

== ENCOUNTER → 2024-04-04 | Outpatient (CLI) | payer MEDICARE, OTHER, SELFPAY ==
--- NOTE | 2024-04-04 15:00 | RAD_ITS ---
PROCEDURE: LUMBOSACRAL SPINE COMPLETE WITH FLEXION AND EXTENSION VIEWS REASON FOR EXAM: BACK PAIN. LUMBAR DEGENERATIVE DISC DISEASE. RECENT FALL. TECHNIQUE: STANDING AP, LATERAL, OBLIQUE, AND FLEXION AND EXTENSION view(s) Of the lumbar spine. COMPARISON: No relevant prior. FINDINGS: Vertebral bodies are normal in height. Moderate multilevel spondylosis. Limited range of motion during flexion and extension. Mild grade 1 retrolisthesis, L2 on L3 by approximately 4 mm during flexion and extension. Multilevel degenerative disc disease, moderate to severe at L2 through S1. Dorsal fusion with instrumentation at L4-L5. No signs of foraminal narrowing. Multilevel facet arthropathy. Sacroiliac joints are maintained. Paravertebral soft tissues are unremarkable. RAD/L/S Spine Comp/w Bending Views IMPRESSION: 1. Status post dorsal fusion at L4-L5. 2. Multilevel spondylosis and degenerative disc disease. 3. Limited range of motion during flexion and extension. 4. Mild grade 1 retrolisthesis, L2 on L3. 5. No acute osseous findings. Reading Location: [facility]
--- NOTE | 2024-04-04 15:00 | RAD_ITS ---
PROCEDURE: RIGHT HIP AND AP PELVIS, 2-3 VIEWS REASON FOR EXAM: RECENT FALL. TECHNIQUE: AP AND LATERAL RIGHT HIP. AP PELVIS. COMPARISON: NO RELEVANT PRIOR. FINDINGS: No fracture. No suspicious bone lesion. Normal alignment. Soft tissues are unremarkable. Dorsal fusion with instrumentation, L4-L5. RAD/HIP, UNI W/ Pelvis 2-3 Views IMPRESSION: No acute osseous abnormalities involving the right hip. Unremarkable AP pelvis. Status post dorsal fusion at L4-L5. Reading Location: [facility]
== END | disposition home or self-care (01) ==
LOC: MTRAD 14:58
PROVIDERS: PCP Family Medicine; Referring Provider Clinical Nurse Specialist Adult Health; Visit Provider Clinical Nurse Specialist Adult Health
DX: M51.369 Other intervertebral disc degeneration, lumbar region without mention of lumbar back pain or lower extremity pain (principal); W19.XXXA Unspecified fall, initial encounter
CPT/HCPCS: 72114; 73502

== ENCOUNTER → 2024-06-19 | Outpatient (CLI) | payer MEDICARE, OTHER, SELFPAY ==
--- NOTE | 2024-06-19 10:36 | RAD_ITS ---
PROCEDURE: THORACIC SPINE 3 VIEWS 06/19/2024 REASON FOR EXAM: FALL,PAIN TECHNIQUE: Three views of the thoracic spine COMPARISON: None FINDINGS: Thoracic kyphosis is maintained. Vertebral body heights and disc spaces are within normal limits. Diffuse osteopenia. Pedicles are intact. Mild multilevel degenerative changes. Superimposed multilevel anterior bridging osteophytes, compatible with DISH. No acute fracture or traumatic subluxation. Partially imaged lumbar fusion. Imaged lung souza are clear. RAD/Thoracic Spine 3 Views IMPRESSION: No acute findings. Mild multilevel degenerative changes. Superimposed findings compatible with DI SH. Reading Location: [facility]
--- NOTE | 2024-06-19 10:36 | RAD_ITS ---
PROCEDURE: CHEST PA AND LATERAL 06/19/2024 REASON FOR EXAM: PAIN, FALL TECHNIQUE: Frontal and lateral views of the chest. COMPARISON: 07/14/2023 FINDINGS: The lungs appear clear. No pneumothorax or pleural effusion identified. The cardiac and mediastinal contours appear within limits. RAD/Chest PA and Lateral IMPRESSION: No evidence of acute process. Reading Location: [id number]
--- NOTE | 2024-06-19 10:37 | RAD_ITS ---
EXAM: DX ribs unilateral two views no chest x-ray CLINICAL HISTORY: Status post fall with ribcage pain COMPARISON: 07/14/2023 TECHNIQUE: Four views right ribs FINDINGS: Acute appearing fracture of the anterior right 9th rib. RAD/Ribs Unil 2V No CXR IMPRESSION: Acute appearing fracture of the anterior right 9th rib. Reading Location: [id number]
== END | disposition home or self-care (01) ==
LOC: MTRAD 10:34
PROVIDERS: PCP Family Medicine; Referring Provider Anesthesiology Pain Medicine; Visit Provider Anesthesiology Pain Medicine
DX: R07.89 Other chest pain (principal); W19.XXXA Unspecified fall, initial encounter
CPT/HCPCS: 71046; 71100; 72072

== ENCOUNTER → 2024-06-23 | Outpatient (CLI) | payer MEDICARE, OTHER, SELFPAY ==
--- NOTE | 2024-06-23 09:20 | US_ITS ---
PROCEDURE: ABDOMEN LIMITED 06/23/2024 REASON FOR EXAM: R10.11 TECHNIQUE: Complete abdominal ultrasound cabrera-scale images with color doppler. PATIENT PREPARATION: Per protocol FINDINGS: The visualized pancreas appears within limits without evidence of pancreatic ductal dilation. The liver is enlarged measuring 19.8 cm and appears diffusely increased in echogenicity which can be seen with hepatic steatosis or other hepatocellular disease. No evidence of intrahepatic biliary ductal dilation. Hepatic color flow is present with flow in the portal vein hepatopetal as expected. Status post cholecystectomy. CBD 5 mm The right kidney measures 10.9 x 5.2 x 4.4 cm with a cortical thickness of 1.5 cm. No right hydronephrosis, renal stones or perinephric edema seen. No free fluid seen. US/Abdomen Limited IMPRESSION: The liver is enlarged measuring 19.8 cm and appears diffusely increased in echo genicity which can be seen with hepatic steatosis or other hepatocellular disease. Status post cholecystectomy. No free fluid seen. Reading Location: [id number]
== END | disposition home or self-care (01) ==
LOC: US 09:13
PROVIDERS: PCP Family Medicine; Referring Provider Family Medicine; Visit Provider Family Medicine
DX: R10.11 Right upper quadrant pain (principal)
CPT/HCPCS: 76705

== ENCOUNTER → 2024-10-02 | Outpatient (CLI) | payer MEDICARE, OTHER, SELFPAY ==
--- NOTE | 2024-10-02 13:49 | RAD_ITS ---
PROCEDURE: RIBS UNI MIN 3V W/PA CHEST 10/02/2024 REASON FOR EXAM: RIB PAIN, FALL Right-sided rib pain. TECHNIQUE: Multiple views of the right ribs were obtained. COMPARISON: Prior study dated June 19, 2024. FINDINGS: Healing fracture of the anterior right 9th rib. The lungs are clear. Osteoarthritis of the right shoulder joint as well as calcific tendinitis. Degenerative changes of the thoracic vertebrae. RAD/Ribs Uni Min 3V w/PA Chest IMPRESSION: Healing fracture of the right 9th rib. No acute fracture is seen. Osteoarthritis of the right shoulder joint. Degenerative changes of the thorac ic spine. Reading Location: [facility]
== END | disposition home or self-care (01) ==
PROVIDERS: PCP Family Medicine; Referring Provider Family Medicine; Visit Provider Family Medicine
DX: R07.81 Pleurodynia (principal)
CPT/HCPCS: 71101

== ENCOUNTER → 2024-11-07 | Outpatient (CLI) | payer MEDICARE, OTHER, SELFPAY ==
--- NOTE | 2024-11-07 14:12 | RAD_ITS ---
PROCEDURE: CHEST PA AND LATERAL 11/07/2024 REASON FOR EXAM: RULE OUT PNEUMONIA TECHNIQUE: Procedure Code: RADCXR Modality: DX Procedure: CHEST PA AND LATERAL COMPARISON: Two-view chest, 10/02/2024. FINDINGS: Suboptimal inspiration but the lungs appear clear. The heart borders mediastinum and pulmonary vascular pattern are normal. The upper abdominal bowel gas pattern is normal. There is mild dextroscoliosis of the thoracic spine. RAD/Chest PA and Lateral IMPRESSION: No evidence of acute cardiopulmonary pathology. Reading Location: [id number]
== END | disposition home or self-care (01) ==
LOC: MTRAD 14:11
PROVIDERS: PCP Family Medicine; Referring Provider Nurse Practitioner Family; Visit Provider Nurse Practitioner Family
DX: R06.02 Shortness of breath (principal); R05.9 Cough, unspecified
CPT/HCPCS: 71046

== ENCOUNTER → 2024-12-04 | Outpatient (CLI) | payer MEDICARE, OTHER, SELFPAY ==
--- NOTE | 2024-12-04 12:41 | BI_ITS ---
EXAM: SCRN MAMM (CAD)W/DANIELA BILAT DATE: 12/04/2024 CLINICAL HISTORY: F, Age 79 y/o , SCREENING TECHNIQUE: Procedure Code: [id number] Modality: MG Procedure: SCRN MAMM (CAD)W/DANIELA BILAT COMPARISON: Prior exam(s) dated 10/28/2023 and 10/26/2022. FINDINGS: TISSUE DENSITY: The breasts are almost entirely fatty. Bilateral Breast Mammographic Findings: No significant masses, calcifications or other abnormalities are identified. Benign-appearing round microcalcifications and macrocalcifications are seen in both breasts. A radiopaque clip is seen in the superior outer aspect of the left breast. The biopsy was benign. Post biopsy site is stable. BI/SCRN MAMM (CAD)W/DANIELA BILAT IMPRESSION: Benign screening mammogram. OVERALL FINAL ASSESSMENT BI-RADS 2: BENIGN RECOMMENDATION: Routine annual follow-up in 1 Year Additional Recommendation none A letter with findings and recommendations will be mailed to the patient. Reading Location: [id number]
--- OUTSIDE RECORDS SUMMARY | 2024-12-04 12:59 | XMS RPT_ITS | CCD ---
Author Organization [facility] Providers Care Stave Jointer Name Role Phone Dr. Jovanni Acosta Primary Care Provider [phone] Dr. Jovanni Acosta Referring Provider Dr. Gucci Hickey Attending Provider Dr. Jovanni Acosta Primary Care Provider Dr. Jovanni Acosta Referring Provider Dr. Gucci Hickey Attending Provider Dr. Sai Villalba Attending Provider Dr. Jovanni Acosta Primary Care Provider Dr. Jovanni Acosta Referring Provider Dr. Sai Villalba Attending Provider Dr. Gucci Hickey Attending Provider Dr. Jovanni Acosta DO Primary Care Provider [phone] NP. Sally Vazquez Attending Provider NP. Sally Vazquez Referring Provider Dr. Abdirahman Alvarez MD Attending Provider Dr. Abdirahman Alvarez MD Referring Provider Dr. Jovanni Acosta DO Attending Provider Dr. Jovanni Acosta DO Referring Provider Dr. Sai Villalba MD Attending Provider Dr. Jovanni Acosta DO Primary Care Provider Dr. Jovanni Acosta DO Primary Care Provider Dr. Jovanni Acosta DO Referring Provider Karla BARAHONA, Dr. Baig Attending Provider Edelmira LOPEZ, Dr. Duckworth Attending Provider [phone] Edelmira LOPEZ, Dr. Duckworth Referring Provider Karla BARAHONA, Dr. Baig Primary Care Physician [phone] Karla BARAHONA, Dr. Baig Attending Physician Karla BARAHONA, Dr. Baig Referring Provider [phone] Edelmira LOPEZ, Dr. Duckworth Attending Physician Frantz REINFORCEMENT MAKER-C, Jemima Attending Physician Frantz REINFORCEMENT MAKER-C, Jemima Referring Provider [phone] Karla, Jovanni Primary Care Unavailable Karla, Jovanni Attending Unavailable Karla, Jovanni Referring Unavailable Karla, Jovanni Primary Care Unavailable Reasnor, Sally Attending Unavailable George, Sally Referring Unavailable AntonioAbdirahman Attending Unavailable AntonioAbdirahman Referring Unavailable Karla, Jovanni Primary Care Unavailable Karla, Jovanni Primary Care Unavailable Karla, Jovanni Attending Unavailable Karla, Jovanni Referring Unavailable Karla, Jovanni Primary Care Unavailable Karla, Jovanni Attending Unavailable Karla, Jovanni Referring Unavailable Prah, Gucci Attending Unavailable Prah, Gucci Referring Unavailable Karla, Jvoanni Primary Care Unavailable Karla, Jovanni Attending Unavailable Karla, Jovanni Referring Unavailable Karla, Jovanni Primary Care Unavailable Prah, Gucci Attending Unavailable Karla, Jovanni Referring Unavailable Karla, Jovanni Primary Care Unavailable Karla, Jovanni Primary Care Unavailable Sai Villalba Attending Unavailable Karla, Jovanni Referring Unavailable Karla, Jovanni Primary Care Unavailable Sai Villalba Attending Unavailable Karla, Jovanni Referring Unavailable Frantz, Jemima Attending Unavailable Frantz, Jemima Referring Unavailable Karla, Jovanni Primary Care Unavailable Allergies Allergy Classification Reported Allergen(s) Allergy Type Date of Onset Reaction(s) Facility (2 sources) Bee Allergy to substance 1 Anaphylaxis [facility] Work Phone: (15 sources) Codeine Drug Allergy 1 Agitation [facility] (15 sources) prednisoLONE Drug Allergy 1 Hives [facility] (15 sources) predniSONE Drug Allergy 1 [facility]ching,[facility] (16 sources) Sulfonamides (Antibiotic); Translations: [Sulfa (Sulfonamide Antibiotics)] Allergy to substance 1 Hives [facility] (13 sources) bee venom protein (honey bee) Allergy to substance 2 Anaphylaxis [facility] (10 sources) atorvastatin Drug Allergy 3 NEEDS FOLLOW-UP [facility] (10 sources) Hydrocortisone Drug Allergy 3 NEEDS FOLLOW-UP [facility] (10 sources) Penicillins Allergy to substance 3 NEEDS FOLLOW-UP [facility] (1 source) atorvastatin Drug Allergy 5 [facility] Repository (1 source) Codeine Drug Allergy 5 [facility] Rep[facility] (1 source) Hydrocortisone Drug Allergy 5 [facility] (1 source) Penicillins Drug allergy (disorder) 5 [facility] Rep[facility] (1 source) prednisoLONE Drug Allergy 5 [facility] (1 source) predniSONE Drug Allergy 5 [facility] (1 source) bee venom protein (honey bee) Drug allergy (disorder) 5 [facility] Repository Medications Current Medications Medication Drug Class(es) Dates Sig (Normalized) Sig (Original) cholecalciferol 0.05 mg oral capsule (20 sources) Vitamin D Start: 09-23-2023 take 1 capsule by mouth once daily Start: 09-22-2022 End: 09-23-2023 take 1 capsule by mouth every week Cholecalciferol (Vitamin D3) 1,250 mcg (50,000 unit) capsule Discontinued 1250 ug PO EVERY WEEK 01 15September 22, 2022 12:00am September 23, 2023 12:58pm Start: 05-28-2022 End: 07-27-2022 take 1 capsule by mouth once daily Cholecalciferol (Vitamin D3) 125 mcg (5,000 unit) capsule Discontinued 125 ug PO DAILY May 28, 2022 12:00am July 27, 2022 3:25pm 1 ml denosumab 60 mg/ml prefilled syringe (8 sources) RANK Ligand Inhibitor Start: 12-24-2022 24 hr dilTIAZem hydrochloride 300 mg extended release oral capsule (15 sources) Calcium Channel Farheen Start: 12-15-2013 take 1 capsule by mouth every twenty-four hours at bedtime esomeprazole 40 mg delayed release oral capsule (15 sources) Proton Pump Inhibitor Start: 07-31-2019 take 1 capsule by mouth once daily ezetimibe 10 mg oral tablet (2 sources) Dietary Cholesterol Absorption Inhibitor Start: 10-23-2024 take 1 tablet by mouth once daily gabapentin 100 mg oral capsule (20 sources) Anti-epileptic Agent Start: 07-31-2019 take 1 capsule by mouth twice daily Start: 01-16-2019 End: 01-17-2019 take 1 capsule by mouth once daily Gabapentin 100 mg capsule Discontinued 100 mg PO DAILY January 16, 2019 4:33pm January 17, 2019 2:23pm Start: 07-25-2016 End: 07-31-2019 take 1 capsule by mouth three times daily Gabapentin 100 mg capsule Discontinued 100 mg PO THREE TIMES A DAY 90 0 February 14, 2019 9:23am July 31, 2019 2:46pm nerve pain glimepiride 4 mg oral tablet (20 sources) Sulfonylurea Start: 12-15-2013 End: 01-16-2019 take 1 tablet by mouth twice daily L.Acidoph, Paracasei,B. Lactis (9 sources) Start: 04-02-2020 L.Acidoph, Paracasei,B. Lactis Active 1 EACH PO DAILY April 02, 2020 3:36pm Start: 04-02-2020 L.Acidoph, Par acasei,B. Lactis Active 1 EACH PO DAILY April 02, 2020 12:00am Start: 04-02-2020 L.Acidoph, Par acasei,B. Lactis Active 1 EACH PO DAILY April 02, 2020 1:00am L.Acidoph,Paracasei,B.Animal is 1 EACH capsule (6 sources) Start: 04-02-2020 take 1 capsule by mouth once daily Start: 04-02-2020 take 1 capsule by mouth once daily L.Acidoph,Paracasei,B.Animalis 1 EACH ca psule Active 1 NMA PO DAILY April 02, 2020 1:00am levothyroxine sodium 0.15 mg oral tablet (15 sources) l-Thyroxine Start: 12-15-2013 take 1 tablet by mouth once daily lisinopril 5 mg oral tablet (20 sources) Angiotensin Converting Enzyme Inhibitor Start: 12-15-2013 End: 01-16-2019 take 1 tablet by mouth at bedtime mecobalamin (17 sources) Start: 10-26-2022 Mecobalamin (Vitamin B12) 500 mcg tablet,chewable Active ug PO .QOD October 26, 2022 12:00am Start: 10-26-2022 take 1 ug by mouth e very other day Mecobalamin (Vitamin B12) Active MCG PO .QOD October 25, 2022 11:00pm Start: 10-26-2022 take 1 ug by mouth e very other day Mecobalamin (Vitamin B12) Active MCG PO .QOD October 26, 2022 12:00am Start: 07-22-2022 End: 09-22-2022 take 1 tablet by mouth every other day Mecobalamin (Vitamin B12) 1,000 mcg tablet,chewable Discontinued 1000 ug PO .every other day July 22, 2022 12:00am September 22, 2022 1:36pm metFORMIN hydrochloride 500 mg oral tablet (15 sources) Biguanide Start: 07-25-2016 take 2 tablets by mo uth twice daily at mealtime Start: 07-25-2016 take 1000 mg by mout h twice daily at mealtime Metformin Active 1000 MG PO TWICE DAILY WITH MEALS July 24, 2016 11:00pm sertraline 100 mg oral tablet (20 sources) Serotonin Reuptake Inhibitor Start: 12-15-2013 End: 07-31-2019 take 1 tablet by mouth once daily traMADol hydrochloride 50 mg oral tablet (20 sources) Opioid Agonist Start: 10-23-2024 take 25-50 mg by mouth three times daily as needed for pain Start: 07-31-2019 End: 06-01-2022 take 1 tablet by mouth three times daily as needed for pain Tramadol 50 mg tablet Discontinued 50 mg PO THREE TIMES A DAY as needed for Pain Score -11/24July 31, 2019 12:00am June 01, 2022 9:07am Start: 07-25-2016 End: 02-14-2019 take 1 tablet by mouth three times daily as needed for pain Tramadol 50 mg tablet Discontinued 50 mg PO 3 TIMES DAILY NEEDED as needed for Pain January 16, 2019 4:34pm February 14, 2019 9:23am vitamin b12 0.5 mg chewable tablet (6 sources) Vitamin B12 Start: 10-26-2022 Start: 07-31-2019 take 1 tablet by ronak th once daily Cyanocobalamin (Vitamin B-12) (Vitamin B-12) 1,000 mcg tablet extended release Active 1000 MCG PO DAILY July 31, 2019 12:00am Completed/Discontinued Medications Medication Drug Class(es) Dates Sig (Normalized) Sig (Original) acetaminophen 325 mg oral tablet (15 sources) Start: 07-27-2016 End: 01-16-2019 Acetaminophen 325 MG tablet Discontinued 650 mg PO EVERY 6 HOURS NEEDED as needed for Mild Pain (scale 0-3)/T>100.7 0 July 27, 2016 12:00am January 16, 2019 4:32pm Start: 07-27-2016 End: 01-16-2019 take 650 mg by mouth every six hours as needed Acetaminophen Discontinued 650 MG PO EVERY 6 HOURS NEEDED July 26, 2016 11:00pm January 16, 2019 3:32pm Acetaminophen / HYDROcodone (20 sources) Opioid Agonist Start: 02-03-2019 End: 02-14-2019 take 1 tablet by mouth every six hours as needed [place] 5-325 Tablet Discontinued 1 TABLET PO EVERY 6 HOURS NEEDED February 03, 2019 5:58pm February 14, 2019 9:23am Start: 02-03-2019 End: 02-14-2019 [place] 5-325 Tablet 1 TAB tab let Discontinued 1 {tbl} PO EVERY 6 HOURS NEEDED as needed for Pain Score 4-5/10 February 03, 2019 1:00am February 14, 2019 9:23am Start: 02-03-2019 End: 02-14-2019 take 1 tablet by mouth every six hours as needed [place] 5-325 Tablet Discontinued 1 TABLET PO EVERY 6 HOURS NEEDED February 03, 2019 12:00am February 14, 2019 8:23am Start: 02-03-2019 End: 02-14-2019 take 1 tablet by mouth every six hours as needed [place] 5-325 Tablet Discontinued 1 TABLET PO EVERY 6 HOURS NEEDED February 03, 2019 1:00am February 14, 2019 9:23am Start: 01-16-2019 End: 01-17-2019 Hydrocodone-Acetaminophen ([place]) 5-325 mg tablet Discontinued 1 {tbl} PO TWICE A DAY as needed 0 January 16, 2019 1:00am January 17, 2019 2:23pm Start: 12-15-2013 End: 12-25-2013 Hydrocodone-Acetaminophen 1 TABLET tablet Discontinued 1 {tbl} PO EVERY 4 HOURS NEEDED as needed for Pain December 15, 2013 12:00am December 25, 2013 11:04am Start: 12-15-2013 End: 12-25-2013 take 1 tablet by mouth every four hours as needed Hydrocodone-Acetaminophen Discontinued 1 TABLET PO EVERY 4 HOURS NEEDED December 14, 2013 11:00pm December 25, 2013 10:04am [id number] 60 actuat albuterol 0.09 mg/actuat metered dose inhaler (15 sources) beta2-Adrenergic Agonist Start: 07-27-2016 End: 01-17-2019 Albuterol Sulfate 1 INHALER inhaler Discontinued 1 - 2 NMA INHALATION EVERY 4 HOURS NEEDED as needed for Shortness Of Breath 1 0 July 27, 2016 12:00am January 17, 2019 2:20pm Start: 07-27-2016 End: 01-17-2019 take 1 puff(s) by inhalation every four hours as needed Albuterol Sulfate Discontinued 1 - 2 PUFF INHALATION EVERY 4 HOURS NEEDED 1 July 26, 2016 11:00pm January 17, 2019 1:20pm aspirin 81 mg delayed release oral tablet (20 sources) Platelet Aggregation Inhibitor, Nonsteroidal Anti-inflammatory Drug Start: 05-28-2022 End: 06-01-2022 take 1 tablet by mouth once daily Aspirin (Adult Aspirin Regimen) 81 mg tablet,delayed release (DR/EC) Discontinued 81 mg PO DAILY May 28, 2022 12:00am June 01, 2022 9:07am Start: 12-15-2013 End: 01-16-2019 take 1 tablet by mouth once daily Aspirin 81 MG tablet,chewable Discontinued 81 mg PO DAILY December 15, 2013 12:00am January 16, 2019 4:37pm atorvastatin 10 mg oral tablet (15 sources) HMG-CoA Reductase Inhibitor Start: 07-25-2016 End: 01-16-2019 take 1 tablet by mouth every other day Atorvastatin 10 MG tablet Discontinued 10 mg PO EVERY OTHER DAY July 25, 2016 12:00am January 16, 2019 4:37pm Azithromycin (15 sources) Macrolide Antimicrobial Start: 07-25-2016 End: 07-27-2016 take 1 dose by mouth once daily Zpak Discontinued 1 DOSE PO DAILY July 25, 2016 8:06am July 27, 2016 2:00pm Start: 07-25-2016 End: 07-27-2016 Zpak 1 DOSE Discontinued 1 N MA PO DAILY July 25, 2016 12:00am July 27, 2016 2:00pm Start: 07-25-2016 End: 07-27-2016 take 1 dose by mouth once daily Zpak Discontinued 1 DOSE PO DAILY July 24, 2016 11:00pm July 27, 2016 1:00pm Start: 07-25-2016 End: 07-27-2016 take 1 dose by mouth once daily Zpak Discontinued 1 DOSE PO DAILY July 25, 2016 12:00am July 27, 2016 2:00pm betamethasone 0.5 mg/ml topical cream (9 sources) Corticosteroid Start: 09-22-2022 End: 09-23-2023 Betamethasone Dipropionate 0.05 % cream Discontinued 1 NMA TOPICAL DAILY as needed September 22, 2022 12:00am September 23, 2023 12:58pm calcium carbonate 1500 mg / cholecalciferol 800 unt oral tablet (15 sources) Vitamin D Start: 12-15-2013 End: 01-16-2019 Calcium Carbonate-Vitamin D3 1 TAB tablet Discontinued 1 {tbl} PO DAILY@799December 15, 2013 12:00am January 16, 2019 4:37pm Start: 12-15-2013 End: 01-16-2019 take 1 tablet by mouth once daily Calcium Carbonate-Vitamin D3 Discontinued 1 TABLET PO DAILY@799December 14, 2013 11:00pm January 16, 2019 3:37pm chromium picolinate 0.1 mg / inulin 2000 mg chewable tablet (15 sources) Start: 10-01-2019 End: 07-22-2022 take 1 tablet by mouth once daily Inulin-Chromium Picolinate 1 EACH tablet,chewable Discontinued 2 NMA PO DAILY October 01, 2019 12:00am July 22, 2022 2:40pm Start: 10-01-2019 End: 07-22-2022 Inulin-Chromium Picolinate D iscontinued 2 EACH PO DAILY September 30, 2019 11:00pm July 22, 2022 1:40pm cyclobenzaprine hydrochloride 10 mg oral tablet (20 sources) Muscle Relaxant Start: 01-16-2019 End: 07-31-2019 take 1 tablet by mouth three times daily as needed for muscle spasms Cyclobenzaprine 10 mg tablet Discontinued 10 mg PO THREE TIMES A DAY as needed for muscle spasms 90 0 February 14, 2019 9:23am July 31, 2019 2:44pm docusate sodium 50 mg / sennosides, intermediate 8.6 mg oral tablet (15 sources) Start: 02-14-2019 End: 07-31-2019 Sennosides-Docusate Sodium 1 TABLET tablet Discontinued 2 {tbl} PO TWICE A DAY 120 0 February 14, 2019 1:00am July 31, 2019 2:45pm Start: 02-14-2019 End: 07-31-2019 take 2 tablets by mouth twice daily Sennosides-Docusate Sodium Discontinued 2 TABLET PO TWICE A DAY 120 February 14, 2019 12:00am July 31, 2019 1:45pm 12 hr guaiFENesin 600 mg extended release oral tablet (15 sources) Start: 07-27-2016 End: 01-16-2019 take 1 tablet by mouth twice daily Guaifenesin 600 MG tablet Discontinued 600 mg PO TWICE A DAY 10 0 July 27, 2016 12:00am January 16, 2019 4:36pm inulin 2000 mg chewable tablet (15 sources) Start: 02-03-2019 End: 02-14-2019 take 1 tablet by mouth once daily Inulin 2 GM tablet,chewable Discontinued 2 g PO DAILY February 03, 2019 1:00am February 14, 2019 9:23am bowels methylPREDNISolone 4 mg oral tablet (15 sources) Corticosteroid Start: 07-27-2016 End: 01-16-2019 Methylprednisolone 4 MG tablet Discontinued 4 mg PO DIRECTED 1 0 July 27, 2016 12:00am January 16, 2019 4:37pm Mineral Oil/Petrolatum,White (Eucerin) 1 APPLIC Jar (14 sources) Start: 02-14-2019 End: 07-31-2019 Mineral Oil/Petrolatum,White (Eucerin) 1 APPLIC Jar Discontinued 1 APPLIC TOPICAL 2199February 14, 2019 9:21am July 31, 2019 2:44pm Start: 02-14-2019 End: 07-31-2019 Mineral Oil/Petrolatum,White (Eucerin) 1 APPLIC Jar Discontinued 1 NMA TOPICAL 2199 0 February 14, 2019 1:00am July 31, 2019 2:44pm Please contact the information source for Protocol details. Start: 02-14-2019 End: 07-31-2019 Mineral Oil/Petrolatum,White (Eucerin) 1 APPLIC Jar Discontinued 1 NMA TOPICAL 2199February 14, 2019 1:00am July 31, 2019 2:44pm Please contact the information source for Protocol details. Start: 02-14-2019 End: 07-31-2019 Mineral Oil/Petrolatum,White (Eucerin) 1 APPLIC Jar Discontinued 1 APPLIC TOPICAL 2199February 14, 2019 12:00am July 31, 2019 1:44pm Start: 02-14-2019 End: 07-31-2019 Mineral Oil/Petrolatum,White (Eucerin) 1 APPLIC Jar Discontinued 1 APPLIC TOPICAL 2199February 14, 2019 1:00am July 31, 2019 2:44pm nystatin 100 unt/mg topical powder (15 sources) Polyene Antifungal Start: 02-14-2019 End: 07-31-2019 Nystatin 1 APPLIC bottle Discontinued 1 NMA TOPICAL 599,2199 0 February 14, 2019 1:00am July 31, 2019 2:45pm Please contact the information source for Protocol details. Start: 02-14-2019 End: 07-31-2019 Nystatin Discontinued 1 APPL IC TOPICAL 599,2199February 14, 2019 12:00am July 31, 2019 1:45pm omeprazole 40 mg delayed release oral capsule (15 sources) Proton Pump Inhibitor Start: 07-25-2016 End: 07-31-2019 take 1 capsule by mouth once daily Omeprazole 40 MG capsule Discontinued 40 mg PO DAILY July 25, 2016 12:00am July 31, 2019 2:43pm stomach ondansetron 4 mg disintegrating oral tablet (20 sources) Serotonin-3 Receptor Antagonist Start: 07-31-2019 End: 07-22-2022 Ondansetron 4 mg tablet,disintegrat ing Discontinued 4 mg PO NEEDED as needed for Nausea July 31, 2019 12:00am July 22, 2022 2:40pm Start: 01-16-2019 End: 02-14-2019 take 1 tablet by mouth once daily as needed for nausea Ondansetron 4 mg tablet,disintegrating Discontinued 4 mg PO DAILY as needed for Nausea January 16, 2019 4:35pm February 14, 2019 9:22am Start: 07-25-2016 End: 01-16-2019 take 1 tablet by mouth every eight hours as needed for nausea Ondansetron 4 MG tablet Discontinued 4 m g PO EVERY 8 HOURS NEEDED as needed for Nausea 10 July 25, 2016 12:00am January 16, 2019 4:37pm oxyCODONE hydrochloride 5 mg oral tablet (20 sources) Opioid Agonist Start: 02-03-2019 End: 07-31-2019 take 1 tablet by mouth every six hours as needed for pain Oxycodone 5 MG tablet Discontinued 5 mg PO EVERY 6 HOURS NEEDED as needed for Pain Score 6-10/10 28 7 0 February 14, 2019 July 31, 2019 2:45pm Spinal stenosis of lumbar region with neurogenic claudication Spinal stenosis, lumbar region with neurogenic claudication petrolatum 330 mg/ml topical cream (1 source) Start: 02-14-2019 End: 07-31-2019 Mineral Oil/Petrolatum,White (Eucerin) 1 APPLIC Jar Discontinued 1 NMA TOPICAL 2200 0 February 14, 2019 1:00am July 31, 2019 2:44pm Please contact the information source for Protocol details. polyethylene glycol 3350 30514 mg powder for oral solution (15 sources) Osmotic Laxative Start: 02-14-2019 End: 07-31-2019 take 17 g by mouth once daily Polyethylene Glycol 3350 17 GM packet Discontinued 17 g PO DAILY 30 0 February 14, 2019 1:00am July 31, 2019 2:45pm polysaccharide iron complex 150 mg oral capsule (15 sources) Start: 02-14-2019 End: 07-31-2019 take 1 capsule by mouth once daily at mealtime Polysaccharide Iron Complex 150 MG capsule Discontinued 150 mg PO DAILY WITH MEALS 30 0 February 14, 2019 1:00am July 31, 2019 2:45pm Vit C,E,Zn,Do-Ktbzy6-Fze- Zeax (4 sources) Start: 05-28-2022 End: 07-22-2022 take 1 capsule by mouth once daily Vit C,E,Zn,Ei-Lqrgi7-Fzf -Zeax Discontinued 1 CAP PO DAILY May 27, 2022 11:00pm July 22, 2022 1:38pm Start: 05-28-2022 End: 07-22-2022 take 1 capsule by mouth once daily Vit C,E,Zn,Gz-Exomz2-Nzq-Zeax Discontinu ed 1 CAP PO DAILY May 28, 2022 12:00am July 22, 2022 2:38pm Start: 05-28-2022 take 1 capsule by mo uth once daily Vit C,E,Zn,Mw-Dctzq7-Fye-Zeax Active 1 C AP PO DAILY May 28, 2022 12:00am Vit C,E,Zn,Lz-Llryc8-Vvq-Manuela x 250-2.5-0.5 mg capsule (6 sources) Start: 05-28-2022 End: 07-22-2022 Vit C,E,Zn,Fh-Yxsna2-Lie-Manuela x 250-2.5-0.5 mg capsule Discontinued 1 NMA PO DAILY May 28, 2022 12:00am July 22, 2022 2:38pm Problems Active Problems Problem Classification Problem Date Documented Date Episodic/Chronic Anxiety disorders (15 sources) Anxiety; Translations: [Anxiety disorder, unspecified] 10-01-2019 Chronic Coronary atherosclerosis and other heart disease (15 sources) Angina pectoris; Translations: [Angina pectoris, unspecified] 10-01-2019 Chronic Deficiency and other anemia (15 sources) Anemia; Translations: [Anemia, unspecified] 10-01-2019 Episodic Comment on above: Has been noncomplian t with oral iron because of constipation. Got Injectafer in May 2022. Anemia is resolved today. Deficiency and other anemia (12 sources) Iron-refractory iron deficiency anemia; Translations: [Other iron deficiency anemias] 06-01-2022 Episodic Comment on above: She was given oral I gabriele 2 years ago but was non compliant with it because of constipation.Iron profile is normal today.Discussed findings with Pt. She was given oral I gabriele 2 years ago but was non compliant with it because of constipation.Got IV replacement in 2022. Iron profile is normal today.Discussed findings with Pt. Deficiency and other anemia (5 sources) Anemia, unspecified; Translations: [Anemia, unspecified] 06-01-2022 Episodic Deficiency and other anemia (7 sources) Other iron deficiency anemias; Translations: [Other specified iron deficiency anemias] Onset: 06-01-2022 Episodic Diabetes mellitus without complication (16 sources) Diabetes mellitus; Translations: [Type 2 diabetes mellitus without complications] Onset: 4 10-01-2019 Chronic Diseases of white blood cells (20 sources) Neutrophilia; Translations: [Disorder of white blood cells, unspecified] Onset: 5 06-01-2022 Chronic Comment on above: Mild neutrophilia. Disorders of lipid metabolism (15 sources) Hyperlipidemia; Translations: [Hyperlipidemia, unspecified] 10-01-2019 Chronic Esophageal disorders (15 sources) Gastroesophageal reflux disease; Translations: [Gastro-esophageal reflux disease without esophagitis] 10-01-2019 Chronic Essential hypertension (15 sources) Essential hypertension; Translations: [Essential (primary) hypertension] 02-03-2019 Chronic Malaise and fatigue (15 sources) Asthenia; Translations: [Other malaise] 10-01-2019 Episodic Mood disorders (15 sources) Depressive disorder; Translations: [Depression] 10-01-2019 Chronic Osteoarthritis (15 sources) Osteoarthritis; Translations: [Unspecified osteoarthritis, unspecified site] 10-01-2019 Chronic Osteoporosis (15 sources) Osteoporosis; Translations: [Age-related osteoporosis without current pathological fracture] Onset: 5 10-06-2022 Chronic Other acquired deformities (15 sources) Lumbar spondylolisthesis; Translations: [Spondylolisthesis, lumbar region] 10-01-2019 Episodic Other connective tissue disease (14 sources) Paraparesis; Translations: [Other symptoms and signs involving the musculoskeletal system] 10-01-2019 Episodic Other connective tissue disease (1 source) Other symptoms and signs involving the musculoskeletal system; Translations: [Weakness of both lower extremities] 02-03-2019 Episodic Other diseases of kidney and ureters (9 sources) Secondary hyperparathyroidism; Translations: [Secondary hyperparathyroidism of renal origin] 10-07-2022 Chronic Comment on above: Non-Renal Other diseases of kidney and ureters (3 sources) Secondary hyperparathyroidism of renal origin; Translations: [Secondary hyperparathyroidism (of renal origin)] 09-22-2022 Chronic Other ear and sense organ disorders (15 sources) Hearing loss of right ear; Translations: [Unspecified hearing loss, right ear] 04-09-2020 Chronic Other ear and sense organ disorders (15 sources) Hearing loss; Translations: [Unspecified hearing loss, unspecified ear] 10-01-2019 Chronic Other endocrine disorders (6 sources) Primary hyperparathyroidism; Translations: [Primary hyperparathyroidism] 09-23-2023 Chronic Other gastrointestinal disorders (15 sources) Obstipation; Translations: [Constipation, unspecified] 10-02-2019 Episodic Other lower respiratory disease (1 source) Shortness of breath; Translations: [Shortness of breath] Onset: 5 Episodic Other lower respiratory disease (1 source) Pleurodynia; Translations: [Pleurodynia] Onset: 5 Episodic Other screening for suspected conditions (not mental disorders or infectious disease) (1 source) Encounter for screening mammogram for malignant neoplasm of breast; Translations: [Encounter for screening mammogram for malignant neoplasm of breast] Onset: 5 Episodic Other upper respiratory infections (15 sources) Upper respiratory infection; Translations: [Acute upper respiratory infection, unspecified] 01-16-2019 Episodic Thyroid disorders (15 sources) Hypothyroidism; Translations: [Hypothyroidism, unspecified] 10-01-2019 Chronic Comment on above: Dr. Ryan Unclassified (1 source) Other intervertebral disc degeneration, lumbar region without mention of lumbar back pain or lower extremity pain; Translations: [Other intervertebral disc degeneration, lumbar region without mention of lumbar back pain or lower extremity pain] Onset: 5 Past or Other Problems Problem Classification Problem Date Documented Da te Episodic/Chronic Abdominal pain (16 sources) Right lower quadrant pain; Translations: [Right lower quadrant pain] Onset: 06-29-2024 10-02-2019 Episodic Nonspecific chest pain (16 sources) Chest pain; Translations: [Chest pain, unspecified] Onset: 06-23-2024 02-03-2019 Episodic Results Test Name Value Interpretation Reference Range Facility Chest PA and Lateralon 11-07 Chest PA and Lateral [facility] Imaging Services [address] [place] [id number] Chest PA and Lateral MR#: [id number] Acct: [id number] Name: SANTIAGO ZURITA Rep #: [id number] : 1945 F [id number] From: Cheikh Hendrix MD PCP: Dr. Jovanni Acosta, DO Status: REG CLI Study: Chest PA and Lateral Date of Exam: 11/07/24 Exam# [id number] Ordering Dr: Jemima Landry REINFORCEMENT MAKERSharon PROCEDURE: CHEST PA AND LATERAL 11/07/2024 REASON FOR EXAM: RULE OUT PNEUMONIA TECHNIQUE: Procedure Code: RADCXR Modality: DX Procedure: CHEST PA AND LATERAL COMPARISON: Two-view chest, 10/02/2024. FINDINGS: Suboptimal inspiration but the lungs appear clear. The heart borders mediastinum and pulmonary vascular pattern are normal. The upper abdominal bowel gas pattern is normal. There is mild dextroscoliosis of the thoracic spine. RAD/Chest PA and Lateral IMPRESSION: No evidence of acute cardiopulmonary pathology. Reading Location: [id number] CC: REINFORCEMENT MAKER-C Jemima Landry; Dr. Jovanni Acosta DO Sports Team Manager: Signed Normal [facility] Absolute lymphocyte countOrd ered By: [place] Edelmira on 10-23-2024 Lymphocytes Auto (Unsp spec) [#/Vol] 3.49 10*3/uL 0.83-4.51 [facility] Absolute neutrophil countOrd ered By: [place] Edelmira on 10-23-2024 Neutrophils (Bld) [#/Vol] 4.8 10*3/uL 2.0-7.7 [facility] Anion gap in Serum or Plasma Ordered By: Gucci Hickey on 10-23-2024 Anion gap [Moles/Vol] 13 mmol/L 5-15 [facility] Automated lymphocyte count a s percentage of total leukocytesOrdered By: Gucci Hickey on 10-23-2024 Lymphocytes/100 WBC Auto (Unsp spec) 35.0 % 19-41 [facility] BUN/creatinine ratioOrdered By: Gucci Hickey on 10-23-2024 Urea nitrogen/Creatinine [Mass ratio] 21.3 mg/mg High 10-20 [facility] Basophil percentageOrdered B y: Gucci Hickey on 10-23-2024 Basophils/100 WBC (Bld) 1.1 % High 0-1 [facility] Bilirubin, totalOrdered By: Gucci Hickey on 10-23-2024 Bilirubin [Mass/Vol] 0.33 mg/dL 0.00-1.30 [facility] CBC W/Diff, Automatedon 09-0 -2024 Absolute Neut 4.8 X10 3/uL Normal 2.0-7.7 [facility] Comment on above: Performed By: #### L 503.6030, L501.6710, L101.9900, L100.0100, L500.4050 ####[facility] [address] [place], [address] Erythrocyte distribution width (RBC) [Ratio] 12.7 % Normal 11.6-14.6 [facility] Comment on above: Performed By: #### L 503.6030, L501.6710, L101.9900, L100.0100, L500.4050 ####[facility] [address] [place], [address] Hematocrit (Bld) [Volume fraction] 46.1 % Normal 37-47 [facility] Comment on above: Performed By: #### L 503.6030, L501.6710, L101.9900, L100.0100, L500.4050 ####[facility] [address] [place], [address] Hemoglobin (Bld) [Mass/Vol] 14.9 g/dL Normal 12.0-15.0 [facility] Comment on above: Performed By: #### L 503.6030, L501.6710, L101.9900, L100.0100, L500.4050 ####[facility] [address] [place], [address] MCH (RBC) [Entitic mass] 28.5 pg Normal 27.0-32.0 [facility] Comment on above: Performed By: #### L 503.6030, L501.6710, L101.9900, L100.0100, L500.4050 ####[facility] [address] [place], [address] MCHC (RBC) [Mass/Vol] 32.3 g/dL Normal 32-36 [facility] Comment on above: Performed By: #### L 503.6030, L501.6710, L101.9900, L100.0100, L500.4050 ####[facility] [address] [place], [address] MCV (RBC) [Entitic vol] 88.1 fL Normal 81-99 [facility] Comment on above: Performed By: #### L 503.6030, L501.6710, L101.9900, L100.0100, L500.4050 ####[facility] [address] [place], [address] Neutrophils/100 WBC (Bld) 48.2 % Normal 47-70 [facility] Comment on above: Performed By: #### L 503.6030, L501.6710, L101.9900, L100.0100, L500.4050 ####[facility] [address] [place], [address] Platelets (Bld) [#/Vol] 263 10*3/uL Normal 150-450 [facility] Comment on above: Performed By: #### L 503.6030, L501.6710, L101.9900, L100.0100, L500.4050 ####[facility] [address] [place], [address] RBC (Bld) [#/Vol] 5.23 10*6/uL Normal 4.2-5.4 [facility] Comment on above: Performed By: #### L 503.6030, L501.6710, L101.9900, L100.0100, L500.4050 ####[facility] [address] [place], [address] RDW SD 41.1 fl Normal 35.1-43.9 [facility] Comment on above: Performed By: #### L 503.6030, L501.6710, L101.9900, L100.0100, L500.4050 ####[facility] [address] [place], [address] WBC (Bld) [#/Vol] 10.0 10*3/uL Normal 4.4-11.0 [facility] Comment on above: Performed By: #### L 503.6030, L501.6710, L101.9900, L100.0100, L500.4050 ####[facility] [address] [place], [address] CRPon 10-23-2024 C-REACTIVE PROT < 3.00 Normal 0.0-3.0 [facility] Comment on above: Performed By: #### L 503.6030, L501.6710, L101.9900, L100.0100, L500.4050 ####[facility] [address] [place], [address] Carbon dioxide, total [Moles /volume] in Central venous bloodOrdered By: Gucci Hickey on 10-23-2024 CO2 [Moles/Vol] 23.6 mmol/L 21.0-32.0 [facility] Chloride assayOrdered By: Tanya Hickey on 10-23-2024 Chloride [Moles/Vol] 103 mmol/L 98-108 [facility] Comprehensive Metabolic Prof ilon 10-23-2024 Albumin [Mass/Vol] 4.1 g/dL Normal 3.4-4.8 [facility] Comment on above: Performed By: #### L 503.6030, L501.6710, L101.9900, L100.0100, L500.4050 ####[facility] [address] [place], [address] Albumin/Globulin [Mass ratio] 1.5 {ratio} Normal 0.9-2.4 [facility] Comment on above: Performed By: #### L 503.6030, L501.6710, L101.9900, L100.0100, L500.4050 ####[facility] [address] [place], [address] ALK PHOS 65 U/L Normal 35-104 [facility] Comment on above: Performed By: #### L 503.6030, L501.6710, L101.9900, L100.0100, L500.4050 ####[facility] [address] [place], [address] ALT [Catalytic activity/Vol] 26 U/L Normal <=34 [facility] Comment on above: Performed By: #### L 503.6030, L501.6710, L101.9900, L100.0100, L500.4050 ####[facility] [address] [place], [address] AST [Catalytic activity/Vol] 22 U/L Normal <=31 [facility] Comment on above: Performed By: #### L 503.6030, L501.6710, L101.9900, L100.0100, L500.4050 ####[facility] [address] [place], [address] Bilirubin [Mass/Vol] 0.33 mg/dL Normal 0.00-1.30 [facility] Comment on above: Performed By: #### L 503.6030, L501.6710, L101.9900, L100.0100, L500.4050 ####[facility] [address] [place], [address] BUN/CRE 21.3 RATIO High 10-20 [facility] Comment on above: Performed By: #### L 503.6030, L501.6710, L101.9900, L100.0100, L500.4050 ####[facility] [address] [place], [address] Calcium [Mass/Vol] 10.5 mg/dL Normal 7.6-11.0 [facility] Comment on above: Performed By: #### L 503.6030, L501.6710, L101.9900, L100.0100, L500.4050 ####[facility] [address] [place], [address] Chloride [Moles/Vol] 103 mmol/L Normal 98-108 [facility] Comment on above: Performed By: #### L 503.6030, L501.6710, L101.9900, L100.0100, L500.4050 ####[facility] [address] [place], [address] CO2 [Moles/Vol] 23.6 mmol/L Normal 21.0-32.0 [facility] Comment on above: Performed By: #### L 503.6030, L501.6710, L101.9900, L100.0100, L500.4050 ####[facility] [address] [place], [address] Creatinine [Mass/Vol] 0.56 mg/dL Low 0.70-1.20 [facility] Comment on above: Performed By: #### L 503.6030, L501.6710, L101.9900, L100.0100, L500.4050 ####[facility] [address] [place], [address] ECRCL 59.74 ml/min Normal 50-250 [facility] Comment on above: Performed By: #### L 503.6030, L501.6710, L101.9900, L100.0100, L500.4050 ####[facility] [address] [place], [address] GAP 13 Normal 5-15 [facility] Comment on above: Performed By: #### L 503.6030, L501.6710, L101.9900, L100.0100, L500.4050 ####[facility] [address] [place], [address] GFR/1.73 sq M.predicted among non-blacks MDRD (S/P/Bld) [Vol rate/Area] 93 mL/min/{1.73_m2} Normal >60 [facility] Comment on above: Result Comment: mL/m in/1.73m2 CKD-EPI Creatinine Equation (2020) Performed By: #### L 503.6030, L501.6710, L101.9900, L100.0100, L500.4050 ####[facility] [address] [place], [address] Globulin (S) [Mass/Vol] 2.8 g/dL Normal 2.2-4.2 [facility] Comment on above: Performed By: #### L 503.6030, L501.6710, L101.9900, L100.0100, L500.4050 ####[facility] [address] [place], [address] Glucose [Mass/Vol] 156 mg/dL High 70-99 [facility] Comment on above: Performed By: #### L 503.6030, L501.6710, L101.9900, L100.0100, L500.4050 ####[facility] [address] [place], [address] Potassium [Moles/Vol] 4.3 mmol/L Normal 3.3-5.1 [facility] Comment on above: Performed By: #### L 503.6030, L501.6710, L101.9900, L100.0100, L500.4050 ####[facility] [address] [place], [address] Sodium [Moles/Vol] 140 mmol/L Normal 133-145 [facility] Comment on above: Performed By: #### L 503.6030, L501.6710, L101.9900, L100.0100, L500.4050 ####[facility] [address] [place], [address] T PROT 6.9 g/dL Normal 5.9-8.4 [facility] Comment on above: Performed By: #### L 503.6030, L501.6710, L101.9900, L100.0100, L500.4050 ####[facility] [address] [place], [address] Urea nitrogen [Mass/Vol] 12 mg/dL Normal 4-19 [facility] Comment on above: Performed By: #### L 503.6030, L501.6710, L101.9900, L100.0100, L500.4050 ####[facility] [address] [place], [address] Eosinophil percentageOrdered By: Gucci Hickey on 10-23-2024 Eosinophils/100 WBC (Bld) 9.3 % High 0-5 [facility] Erythrocyte Sed Rateon 10-23 SED RATE 19 mm/hr Normal 0-30 [facility] Comment on above: Performed By: #### L 503.6030, L501.6710, L101.9900, L100.0100, L500.4050 ####[facility] [address] [place], [address] Erythrocyte distribution wid th ratioOrdered By: Gucci Hickey on 10-23-2024 Erythrocyte distribution width (RBC) [Ratio] 12.7 % 11.6-14.6 [facility] Erythrocyte distribution wid th standard deviationOrdered By: Gucci Hickey on 10-23-2024 Erythrocyte distribution width (RBC) [Ratio] 41.1 fl 35.1-43.9 [facility] Erythrocyte sedimentation ra teOrdered By: Gucci Hickey on 10-23-2024 ESR (Bld) [Velocity] 19 mm/h 0-30 [facility] Ferritinon 10-23-2024 Ferritin [Mass/Vol] 87 ng/mL Normal 22-378 [facility] Comment on above: Performed By: #### L 504.2610, L503.6550 ####[facility] [address] [place], [address] Glomerular filtration rate ( GFR) estimation/1.73 sq m using serum, plasma, or whole bOrdered By: Gucci Hickey on 10-23-2024 GFR/1.73 sq M.predicted among non-blacks MDRD (S/P/Bld) [Vol rate/Area] 93 mL/min/{1.73_m2} >60 [facility] Comment on above: mL/min/1.73m2 CKD-EP I Creatinine Equation (2020) Hematocrit Auto (Bld) [Volum e fraction]Ordered By: Gucci Hickey on 10-23-2024 Hematocrit (Bld) [Volume fraction] 46.1 % 37-47 [facility] Hemoglobin measurementOrdere d By: Gucci Hickey on 10-23-2024 Hemoglobin (Bld) [Mass/Vol] 14.9 g/dL 12.0-15.0 [facility] Immature granulocytes/100 WB C Auto (Bld)Ordered By: Gucci Hickey on 10-23-2024 Immature granulocytes/100 WBC (Bld) 0.300 % 0.0-0.9 [facility] Comment on above: IG% - Immature Granu locytes (promyelocytes, myelocytes and metamyelocytes) > 1% indicates that a LEFT SHIFT is Present. Iron measurement (mass/mass) Ordered By: Gucci Hickey on 10-23-2024 Iron (Unsp spec) [Mass/Mass] 72 ug/dL 50-170 [facility] Iron+Iron Binding Capacityon 10-23-2024 Iron [Mass/Vol] 72 ug/dL Normal 50-170 [facility] Comment on above: Performed By: #### L 503.6030, L501.6710, L101.9900, L100.0100, L500.4050 ####[facility] [address] [place], [address] UIBC 231 ug/dL Normal 228-428 [facility] Comment on above: Performed By: #### L 503.6030, L501.6710, L101.9900, L100.0100, L500.4050 ####[facility] [address] [place] [place], [address] LDHon 10-23-2024 LDH 142 U/L Normal 84-246 [facility] Comment on above: Order Comment: 1 Performed By: #### L 504.2610, L503.6550 ####[facility] [address] [place], [address] Laboratory - Chemistry and C hemistry - challengeOrdered By: Gucci Hickey on 10-23-2024 AST [Catalytic activity/Vol] 22 U/L <32 [facility] Lactate dehydrogenase (LDH) measurementOrdered By: Gucci Hickey on 10-23-2024 LDH [Catalytic activity/Vol] 142 U/L 84-246 [facility] MCV (mean corpuscular volume ) determinationOrdered By: Gucci Hickey on 10-23-2024 MCV (RBC) [Entitic vol] 88.1 fL 81-99 [facility] Mean corpuscular hemoglobin (MCH) determinationOrdered By: Gucci Hickey on 10-23-2024 MCH (RBC) [Entitic mass] 28.5 pg 27.0-32.0 [facility] Mean corpuscular hemoglobin concentration (MCHC) determinationOrdered By: Gucci Hickey on 10-23-2024 MCHC (RBC) [Mass/Vol] 32.3 g/dL 32-36 [facility] Mean platelet volume determi nationOrdered By: Gucci Hickey on 10-23-2024 Platelet mean volume (Bld) [Entitic vol] 10.3 fL 6.2-12.0 [facility] Monocyte percentageOrdered B y: Gucci Hickey on 10-23-2024 Monocytes/100 WBC (Bld) 6.1 % 0-10 [facility] Neutrophil percentageOrdered By: Gucci Hickey on 10-23-2024 Neutrophils/100 WBC (Bld) 48.2 % 47-70 [facility] No Panel InformationOrdered By: Gucci Hickey on 10-23-2024 Unsaturated Iron Binding Capacity 231 ug/dL 228-428 [facility] Nucleated red blood cell per centageOrdered By: Gucci Hickey on 10-23-2024 Nucleated RBC/100 WBC (Bld) [Ratio] 0 % 0-5 [facility] Oncology Visit Reporton Oncology Visit Report [facility] [place] [address] OFFICE VISIT Date of Service: 10/23/24 1033 MR#: [id number] Acct: [id number] Name: SANTIAGO ZURITA Rep #: [id number] : 1945 From: Gucci Hickey MD Age/Sex: 79/F Location: [facility] [place] Status: Signed HPI Subjective Date of Service 10/23/24 Chief Complaint F/u for leukocytosis and Anemia. History of Present Illness 79-year-old woman was found to have persistent anemia and leukocytosis so referred for further evaluation and management. She reported that she had iron deficiency anemia for many many years, took iron pills but was never compliant because of constipation. She denied weight loss, fever, night sweats or hematochezia/hematemesis. She received IV iron infusion with Injectafer on 06/04/2022 and 06/11/2022 which normalized the Iron profile. On observation. Comes for follow up. Using a walker to ambulate. [facility] Medical History Secondary hyperparathyroidism Osteoporosis Lumbar spinal stenosis Vitamin D deficiency Fuchs' corneal dystrophy Macular degeneration of both eyes Abnormal mammogram Sensorineural hearing loss (SNHL) of right ear IBS (irritable bowel syndrome) Prinzmetal angina Iron deficiency anemia Fatty liver Leukocytosis Primary hyperparathyroidism Spondylolisthesis at L4-L5 level Lumbar stenosis with neurogenic claudication DDD (degenerative disc disease), lumbar Chest pain Peripheral neuropathy Hypothyroidism Essential hypertension Preop cardiovascular exam GERD (gastroesophageal reflux disease) Abnormal mammogram of right breast Depression with anxiety Arthritis History of back problems Diabetes Thyroid disease Acute respiratory failure with hypoxia URI (upper respiratory infection) Surgical History History of excision of pilonidal cyst History of arthroscopic knee surgery History of hernia repair History of bilateral cataract extraction History of tonsillectomy History of cholecystectomy History of bunionectomy of both great toes History of total thyroidectomy H/O abdominal hysterectomy Family History Mother Breast cancer Heart disease Alzheimer's disease Sister Breast cancer Thyroid disorder Grandmother Breast cancer Seizures Uncle Diabetes Father Hypertension Ruptured aortic aneurysm Social History Smoking Status: Never smoker alcohol intake: never substance use type: does not use Intake Vital Signs 12/28/23 13:43 10/23/24 10:34 Height 5 ft 3 in 5 ft 3 in Weight: 84.623 kg BMI 33.0 BP 117/73 Blood Pressure Location Lt brachial Position Sitting Respiration 18 Pulse 71 Pulse Source Monitor Temp 97 F L Temperature Source Temporal Artery Pulse Oximetry (%) 95 Oxygen Delivery Method room air Intake Accompanied by: Self Is patient in pain?: Yes (right rib) Pain scale (1-10): 4 Allergies bee venom protein (honey bee) Allergy (Severe, Verified 10/23/24 10:47) Anaphylaxis prednisone Allergy (Intermediate, Verified 10/23/24 10:47) Itching,hives atorvastatin Allergy (Verified 10/23/24 10:47) NEEDS FOLLOW-UP codeine Allergy (Verified 10/23/24 10:47) Agitation hydrocortisone (From Cortizone-10) Allergy (Verified 10/23/24 10:47) NEEDS FOLLOW-UP Penicillins Allergy (Verified 10/23/24 10:47) NEEDS FOLLOW-UP prednisolone Allergy (Verified 10/23/24 10:47) Hives Sulfa (Sulfonamide Antibiotics) Allergy (Verified 10/23/24 10:47) Hives Medications ???Medication ???Instructions ???Recorded ???Confirmed ???Type diltiazem HCl 300 mg capsule,24 300 mg PO QHS heart rate/bp 10/23/24 History hr,extended release levothyroxine 150 mcg tablet 150 mcg PO DAILY thyroid 12/15/13 10/23/24 History metformin 500 mg tablet 1,000 mg PO BIDCM blood sugar 07/16 0/17 10/23/24 History glimepiride 4 mg tablet 4 mg PO BID blood sugar 01/16/19 0 10/23/24 History lisinopril 5 mg tablet 5 mg PO QHS blood pressure 9 10/23/24 History esomeprazole magnesium 40 mg 40 mg PO DAILY 07/31/19 10/23/24 H istory capsule,delayed release gabapentin 100 mg capsule 100 mg PO BID nerve pain 07/31/19 10/23/24 History sertraline 100 mg tablet 100 mg PO DAILY mood 07/31/1910/09 History L.acidoph,paracasei,B.anim annalise 10 1 ea PO DAILY 04/02/20 10/23/24 H istory billion cell capsule mecobalamin (vitamin B12) 500 mcg mcg PO .QOD 10/26/22 10/23/24 His tory chewable tablet denosumab 60 mg/mL subcutaneous 60 mg subcut [id number] #1 mL 10/23/24 Rx syringe (Prolia) cholecalciferol (vitamin D3) 50 50 mcg PO DAILY 0 (more content not included)... Normal [facility] Platelet countOrdered By: Tanya Hickey on 10-23-2024 Platelets (Bld) [#/Vol] 263 10*3/uL 150-450 [facility] Potassium measurement (mass/ volume)Ordered By: Gucci Hickey on 10-23-2024 Potassium (Unsp spec) [Mass/Vol] 4.3 mmol/L 3.3-5.1 [facility] RBC Auto (Bld) [#/Vol]Ordere d By: Gucci Hickey on 10-23-2024 RBC (Bld) [#/Vol] 5.23 10*6/uL 4.2-5.4 [facility] Serum creatinine measurement (mass/volume)Ordered By: Gucci Hickey on 10-23-2024 Creatinine [Mass/Vol] 0.56 mg/dL Low 0.70-1.20 [facility] Serum globulin measurementOr dered By: Gucci Hickey on 10-23-2024 Globulin (S) [Mass/Vol] 2.8 g/dL 2.2-4.2 [facility] Serum glucose measurement (m ass/volume)Ordered By: Gucci Hickey on 10-23-2024 Glucose [Mass/Vol] 156 mg/dL High 70-99 [facility] Serum or plasma C reactive p rotein measurement (mass/volume)Ordered By: Gucci Hickey on 10-23-2024 CRP [Mass/Vol] mg/L 0.0-3.0 [facility] Serum or plasma alanine paniagua otransferase (ALT) measurementOrdered By: Gucci Hickey on 10-23-2024 ALT [Catalytic activity/Vol] 26 U/L <35 [facility] Serum or plasma albumin shahnaz urement (mass/volume)Ordered By: Gucci Hickey on 10-23-2024 Albumin [Mass/Vol] 4.1 g/dL 3.4-4.8 [facility] Serum or plasma albumin/glob ulin mass ratioOrdered By: Gucci Hickey on 10-23-2024 Albumin/Globulin [Mass ratio] 1.5 {ratio} 0.9-2.4 [facility] Serum or plasma alkaline karolina sphatase measurementOrdered By: Gucci Hickey on 10-23-2024 ALP [Catalytic activity/Vol] 65 U/L 35-104 [facility] Serum or plasma calcium shahnaz urement (mass/volume)Ordered By: Gucci Hickey on 10-23-2024 Calcium [Mass/Vol] 10.5 mg/dL 7.6-11.0 [facility] Serum or plasma ferritin rajinder surement (mass/volume)Ordered By: Gucci Hickey on 10-23-2024 Ferritin [Mass/Vol] 87 ng/mL 22-378 [facility] Serum or plasma iron saturat ion measurement (mass fraction)Ordered By: Gucci Hickey on 10-23-2024 Iron saturation [Mass fraction] 23.8 % 13-59 [facility] [facility] Comment on above: Previous reported re sult: 24.0 %Edited by: BETO on 10/23/24:1132 AMENDED REPORT 10/23/24 1132 IRON SATURATION previously reported as: 24.0 % Serum or plasma urea nitroge n measurement (mass/volume)Ordered By: Gucci Hikcey on 10-23-2024 Urea nitrogen [Mass/Vol] 12 mg/dL 4-19 [facility] Sodium levelOrdered By: Harvey Hickey on 10-23-2024 Sodium [Moles/Vol] 140 mmol/L 133-145 [facility] Total proteinOrdered By: Niels Hickey on 10-23-2024 Protein [Mass/Vol] 6.9 g/dL 5.9-8.4 [facility] White blood cell (WBC) count Ordered By: Gucci Hickey on 10-23-2024 WBC (Bld) [#/Vol] 10.0 10*3/uL 4.4-11.0 [facility] Ribs Uni Min 3V w/PA Cheston 10-02-2024 Ribs Uni Min 3V w/PA Chest [facility] Imaging Services [address] [place] [address] Ribs Uni Min 3V w/PA Chest MR#: [id number] Acct: [id number] Name: SANTIAGO ZURITA Rep #: [id number] : 1945 F 79 From: Eliot talbert MD PCP: Dr. Jovanni Acosta DO Status: REG CLI Study: Ribs Uni Min 3V w/PA Chest Date of Exam: 10/02 Exam# [id number] Ordering Dr: Jovanni Acosta DO PROCEDURE: RIBS UNI MIN 3V W/PA CHEST 10/02/2024 REASON FOR EXAM: RIB PAIN, FALL Right-sided rib pain. TECHNIQUE: Multiple views of the right ribs were obtained. COMPARISON: Prior study dated June 19, 2024. FINDINGS: Healing fracture of the anterior right 9th rib. The lungs are clear. Osteoarthritis of the right shoulder joint as well as calcific tendinitis. Degenerative changes of the thoracic vertebrae. RAD/Ribs Uni Min 3V w/PA Chest IMPRESSION: Healing fracture of the right 9th rib. No acute fracture is seen. Osteoarthritis of the right shoulder joint. Degenerative changes of the thoracic spine. Reading Location: [id number] CC: Dr. Jovanni Acosta DO Sports Team Manager: Signed Normal [facility] Office Visit Reporton 2024 Office Visit Report [facility] [address] [place] [address] OFFICE VISIT Date of Service: 07/11/24 MR#: [id number] Acct: [id number] Patient: SANTIAGO ZURITA Rep #: [id number] : 1945 Provider: Christine Wright Age/Sex: 79/F Location: [facility] Status: Signed Intake Vital Signs 12/28/23 13:43 Height 5 ft 3 in Intake Visit Reasons: Prolia - B B Chief Complaint: F/u for leukocytosis and Anemia. Allergies bee venom protein (honey bee) Allergy (Severe, Verified 10/28/23 13:35) Anaphylaxis prednisone Allergy (Intermediate, Verified 10/28/23 13:35) Itching,hives atorvastatin Allergy (Verified 10/28/23 13:35) NEEDS FOLLOW-UP codeine Allergy (Verified 10/28/23 13:35) Agitation hydrocortisone (From Cortizone-10) Allergy (Verified 10/28/23 13:35) NEEDS FOLLOW-UP Penicillins Allergy (Verified 10/28/23 13:35) NEEDS FOLLOW-UP prednisolone Allergy (Verified 10/28/23 13:35) Hives Sulfa (Sulfonamide Antibiotics) Allergy (Verified 10/28/23 13:35) Hives Have you fallen in the past year?: No Office Procedures Injections Procedure performed by: Jemima Alejandre Lot number: [id number] [employer] Teacher: AMGEN date: 09/14/26 Dose of injection: 1mL Site of injection: Sub-Q Medication Given: Yes Is this a patient provided medication?: No Office Meds Prolia 60 mg/mL subcutaneous syringe Performing Provider: Sai Villalba MD Performing Location: [facility] Administered by: Jemima Alejandre on 07/11/24 13:06 Dose Route Admin Location Dispensed Lot Number Expiration Date [place] Man ufacturer 60 mg subcut Lt arm 1 mL [id number] 09/14/26 93897-521-39 [facility] Assessment and Plan Assessment and Plan (1) Osteoporosis: Status: Chronic Qualifiers: Osteoporosis type: age-related Presence of current pathological fracture: without current pathological fracture Qualified Code(s): M81.0 - Age-related osteoporosis without current pathological fracture Orders: Orders Prolia Injection Today M81.0 - Age-related osteoporosis without current pathological fracture Clinical Quality Measures Falls Risk Screening/Assistive Devices Have you fallen in the past year?: No 07/11/24 1508 Date Sai Villalba MD Cosigner Signature: Date (if applicable) CC: Normal [facility] Abdomen Limitedon 06-23-[address] [facility] [address] [place], [place] [address] Abdomen Limited MR#: [id number] Acct: [id number] Name: SANTIAGO ZURITA Rep #: [id number] : 1945 F 79 From: Alexsander Churchill MD PCP: Dr. Jovanni Acosta DO Status: REG CLI Study: Abdomen Limited Date of Exam: 06/23/24 Exam# [id number] Ordering Dr: Jovanni Acosta DO PROCEDURE: ABDOMEN LIMITED 06/23/2024 REASON FOR EXAM: R10.11 TECHNIQUE: Complete abdominal ultrasound cabrera-scale images with color doppler. PATIENT PREPARATION: Per protocol FINDINGS: The visualized pancreas appears within limits without evidence of pancreatic ductal dilation. The liver is enlarged measuring 19.8 cm and appears diffusely increased in echogenicity which can be seen with hepatic steatosis or other hepatocellular disease. No evidence of intrahepatic biliary ductal dilation. Hepatic color flow is present with flow in the portal vein hepatopetal as expected. Status post cholecystectomy. CBD 5 mm The right kidney measures 10.9 x 5.2 x 4.4 cm with a cortical thickness of 1.5 cm. No right hydronephrosis, renal stones or perinephric edema seen. No free fluid seen. US/Abdomen Limited IMPRESSION: The liver is enlarged measuring 19.8 cm and appears diffusely increased in echogenicity which can be seen with hepatic steatosis or other hepatocellular disease. Status post cholecystectomy. No free fluid seen. Reading Location: [facility] CC: Dr. Jovanni Acosta DO Sports Team Manager: Signed Normal [facility] Chest PA and Lateralon 06-19 Chest PA and Lateral [facility] [address] [place] [address] Chest PA and Lateral MR#: [id number] Acct: [id number] Name: SANTIAGO ZURITA Rep #: [id number] : 1945 F 79 From: Alexsander Churchill MD PCP: Dr. Jovanni Acosta DO Status: REG CLI Study: Chest PA and Lateral Date of Exam: 06/19/24 Exam# [id number] Ordering Dr: Abdirahman Alvarez MD PROCEDURE: CHEST PA AND LATERAL 06/19/2024 REASON FOR EXAM: PAIN, FALL TECHNIQUE: Frontal and lateral views of the chest. COMPARISON: 07/14/2023 FINDINGS: The lungs appear clear. No pneumothorax or pleural effusion identified. The cardiac and mediastinal contours appear within limits. RAD/Chest PA and Lateral IMPRESSION: No evidence of acute process. Reading Location: [facility] CC: Dr. Abdirahman Alvarez MD; Dr. Jovanni Acosta DO Sports Team Manager: Signed Normal [facility] Ribs Unil 2V No CXRon 2024 Ribs Unil 2V No CXR [facility] Imaging Services [address] [place] [address] Ribs Unil 2V No CXR MR#: [id number] Acct: [id number] Name: YUDITHSANTIAGO TESSIE Rep #: [id number] : 1945 F 79 From: Alexsander Churchill MD PCP: Dr. Jovanni Acosta DO Status: REG CLI Study: Ribs Unil 2V No CXR Date of Exam: 06/19/24 Exam# [id number] Ordering Dr: Abdirahman Alvarez MD EXAM: DX ribs unilateral two views no chest x-ray CLINICAL HISTORY: Status post fall with ribcage pain COMPARISON: 07/14/2023 TECHNIQUE: Four views right ribs FINDINGS: Acute appearing fracture of the anterior right 9th rib. RAD/Ribs Unil 2V No CXR IMPRESSION: Acute appearing fracture of the anterior right 9th rib. Reading Location: [id number] CC: Dr. Abdirahman Alvarez MD; Dr. Jovanni Acosta DO Sports Team Manager: Signed Normal [facility] Thoracic Spine 3 Viewson Thoracic Spine 3 Views [facility] Imaging Services [address] [place], [place] [address] Thoracic Spine 3 Views MR#: [id number] Acct: [id number] Name: SANTIAGO ZURITA Rep #: [id number] : 1945 F 79 From: Pavel machuca MD PCP: Dr. Jovanni Acosta DO Status: REG CLI Study: Thoracic Spine 3 Views Date of Exam: 06/19/24 Exam# [id number] Ordering Dr: Abdirahman Alvarez MD PROCEDURE: THORACIC SPINE 3 VIEWS 06/19/2024 REASON FOR EXAM: FALL,PAIN TECHNIQUE: Three views of the thoracic spine COMPARISON: None FINDINGS: Thoracic kyphosis is maintained. Vertebral body heights and disc spaces are within normal limits. Diffuse osteopenia. Pedicles are intact. Mild multilevel degenerative changes. Superimposed multilevel anterior bridging osteophytes, compatible with DISH. No acute fracture or traumatic subluxation. Partially imaged lumbar fusion. Imaged lung souza are clear. RAD/Thoracic Spine 3 Views IMPRESSION: No acute findings. Mild multilevel degenerative changes. Superimposed findings compatible with DISH. Reading Location[facility] CC: Dr. Abdirahman Alvarez MD; Dr. Jovanni Acosta DO Sports Team Manager: Signed Normal [facility] HIP, UNI W/ Pelvis 2-3 Views on 04-04-2024 HIP, UNI W/ Pelvis 2-3 Views [facility] Imaging Services [address] [place], [place] [address] HIP, UNI W/ Pelvis 2-3 Views MR#: [id number] Acct: [id number] Name: SANTIAGO ZURITA Rep #: [id number] : 1945 F 79 From: Jai Dao MD PCP: Dr. Jovanni Acosta, Status: REG CLI Study: HIP, UNI W/ Pelvis 2-3 Views Date of Exam: Exam# [id number] Ordering Dr: Sally Vazquez PROCEDURE: RIGHT HIP AND AP PELVIS, 2-3 VIEWS REASON FOR EXAM: RECENT FALL. TECHNIQUE: AP AND LATERAL RIGHT HIP. AP PELVIS. COMPARISON: NO RELEVANT PRIOR. FINDINGS: No fracture. No suspicious bone lesion. Normal alignment. Soft tissues are unremarkable. Dorsal fusion with instrumentation, L4-L5. RAD/HIP, UNI W/ Pelvis 2-3 Views IMPRESSION: No acute osseous abnormalities involving the right hip. Unremarkable AP pelvis. Status post dorsal fusion at L4-L5. Reading Location: [facility] CC: Sally Vazquez; Dr. Jovanni Acosta DO Sports Team Manager: Signed Normal [facility] L/S Spine Comp/w Bending Vie wson 04-04-2024 L/S Spine Comp/w Bending Views [facility] Imaging Services [address] [place] [address] L/S Spine Comp/w Bending Views MR#: [id number] Acct: [id number] Name: SANTIAGO ZURITA Rep #: [id number] : 1945 F 79 From: Jai Dao MD PCP: Dr. Jovanni Acosta, Status: REG CLI Study: L/S Spine Comp/w Bending Views Date of Exam: 0 04/04/24 Exam# [id number] Ordering Dr: Sally Vazquez PROCEDURE: LUMBOSACRAL SPINE COMPLETE WITH FLEXION AND EXTENSION VIEWS REASON FOR EXAM: BACK PAIN. LUMBAR DEGENERATIVE DISC DISEASE. RECENT FALL. TECHNIQUE: STANDING AP, LATERAL, OBLIQUE, AND FLEXION AND EXTENSION view(s) Of the lumbar spine. COMPARISON: No relevant prior. FINDINGS: Vertebral bodies are normal in height. Moderate multilevel spondylosis. Limited range of motion during flexion and extension. Mild grade 1 retrolisthesis, L2 on L3 by approximately 4 mm during flexion and extension. Multilevel degenerative disc disease, moderate to severe at L2 through S1. Dorsal fusion with instrumentation at L4-L5. No signs of foraminal narrowing. Multilevel facet arthropathy. Sacroiliac joints are maintained. Paravertebral soft tissues are unremarkable. RAD/L/S Spine Comp/w Bending Views IMPRESSION: 1. Status post dorsal fusion at L4-L5. 2. Multilevel spondylosis and degenerative disc disease. 3. Limited range of motion during flexion and extension. 4. Mild grade 1 retrolisthesis, L2 on L3. 5. No acute osseous findings. Reading Location: [facility] CC: Sally Vazquez; Dr. Jovanni Acosta DO Sports Team Manager: Signed Normal [facility] Office Visit Reporton 2023 Office Visit Report [facility] [address] [place] [address] OFFICE VISIT Date of Service: 01/11/24 MR#: [id number] Acct: [id number] Patient: SANTIAGO ZURITA Rep #: [id number] : 1945 Provider: Christine Wright Age/Sex: 78/F Location: [facility] Status: Signed Intake Vital Signs 10/28/23 13:37 12/28/23 13:43 Height 5 ft 3 in 5 ft 3 in Weight: 192 lb 2 oz BMI 34.0 BP 120/73 Blood Pressure Location Lt brachial Position Sitting Respiration 18 Pulse 78 Pulse Source Monitor Temp 98.4 F Pulse Oximetry (%) 94 Oxygen Delivery Method room air Intake Visit Reasons: Prolia - B B Allergies bee venom protein (honey bee) Allergy (Severe, Verified 10/28/23 13:35) Anaphylaxis prednisone Allergy (Intermediate, Verified 10/28/23 13:35) Itching,hives atorvastatin Allergy (Verified 10/28/23 13:35) NEEDS FOLLOW-UP codeine Allergy (Verified 10/28/23 13:35) Agitation hydrocortisone (From Cortizone-10) Allergy (Verified 10/28/23 13:35) NEEDS FOLLOW-UP Penicillins Allergy (Verified 10/28/23 13:35) NEEDS FOLLOW-UP prednisolone Allergy (Verified 10/28/23 13:35) Hives Sulfa (Sulfonamide Antibiotics) Allergy (Verified 10/28/23 13:35) Hives Have you fallen in the past year?: No Office Procedures Injections Procedure performed by: Jemima Alejandre Lot number: [id number] [employer] Special [employer] Teacher: AMGEN date: 04/14/26 Dose of injection: 1mL Site of injection: Sub-Q Medication Given: Yes Is this a patient provided medication?: No Office Meds Prolia 60 mg/mL subcutaneous syringe Performing Provider: Sai Villalba MD Performing Location: [facility] Administered by: Jemima Alejandre on 01/11/24 13:14 Dose Route Admin Location Dispensed Lot Number Expiration Date [facility] Man ufacturer 60 mg subcut Rt arm 1 mL [id number] 04/14/26 95848-451-77 [facility] Assessment and Plan Assessment and Plan (1) Osteoporosis: Status: Chronic Qualifiers: Osteoporosis type: age-related Presence of current pathological fracture: without current pathological fracture Qualified Code(s): M81.0 - Age-related osteoporosis without current pathological fracture Orders: Orders Prolia Injection Today M81.0 - Age-related osteoporosis without current pathological fracture Clinical Quality Measures Falls Risk Screening/Assistive Devices Have you fallen in the past year?: No 01/11/24 1318 Date Sai Villalba MD Cosigner Signature: Date (if applicable) CC: Normal [facility] Hemoglobin A1con 12-06-2023 HbA1c (Bld) [Mass fraction] 7.2 % High 3.8-5.6 [facility] Comment on above: Result Comment: Norm al < 5.7 % Prediabetic 5.7 - 6.4 % Diabetic >or= 6.5 % Please note range changes. Performed By: #### L 501.9985, L506.0400, L501.9520, L500.4100 ####[facility] [id number] [place], [address] Lipid Profileon 12-06-2023 Cholesterol [Mass/Vol] 212 mg/dL High 200 [facility] Comment on above: Result Comment: <200 mg/dL Desirable 200-240 mg/dL Borderline >240 mg/dL High Risk Performed By: #### L 501.9985, L506.0400, L501.9520, L500.4100 #### [facility] [address] [place], [address] Cholesterol in HDL [Mass/Vol] 51 mg/dL Normal [facility] Comment on above: Result Comment: The drugs N-Acetylcysteine and Metamizole may falsely depress this assay. Reference Range HDL <40 mg/dL Low HDL Cholesterol HDL >or= 60 mg/dL High HDL Cholesterol Performed By: #### L 501.9985, L506.0400, L501.9520, L500.4100 #### [facility] [address] [place], [address] Cholesterol in LDL [Mass/Vol] 116 mg/dL Normal 0-130 [facility] Comment on above: Performed By: #### L 501.9985, L506.0400, L501.9520, L500.4100 #### [facility] [address] [place], [address] Cholesterol in VLDL [Mass/Vol] 45 mg/dL High 5-40 [facility] Comment on above: Performed By: #### L 501.9985, L506.0400, L501.9520, L500.4100 #### [facility] [address] [place], [address] Triglyceride [Mass/Vol] 224 mg/dL High [facility] Comment on above: Result Comment: The drugs N-Acetylcysteine and Metamizole may falsely depress this assay. Serum Triglycerides Reference Interval Normal <150 mg/dL Borderline high 150 - 199 mg/dL High 200 - 499 mg/dL Very High > or = 500 mg/dL Performed By: #### L 501.9985, L506.0400, L501.9520, L500.4100 #### [facility] [address] [place], [address] T4 Free Directon 12-06-2023 T4 FREE DIRECT 1.28 ng/dL Normal 0.76-1.46 [facility] Comment on above: Performed By: #### L 501.9985, L506.0400, L501.9520, L500.4100 ####[facility] [id number] [place], [address] Thyroid Stim Hormone (TSH)on 12-06-2023 TSH 0.231 uIU/mL Low 0.358-3.74 0 [facility] Comment on above: Performed By: #### L 501.9985, L506.0400, L501.9520, L500.4100 #### [facility] [address] [place], [address] Vitamin B12 measurementOrder ed By: Gucci Hickey on 10-28-2023 Cobalamin (Vitamin B12) [Mass/Vol] 734 pg/mL 211-911 [facility] No Panel InformationOrdered By: Sai Villalba on 12-23-2022 Parathyroid Hormone (Intact) 111.7 pg/mL 18.4-80.1 [facility] Vitamin D 25-Hydroxy 70.0 ng/mL [facility] Comment on above: Vitamin D 25(OH) Sta tus Range Deficiency <20 ng/mL (50nmol/L) Insufficiency 20 - 30 ng/mL (50 - 75 nmol/L) Sufficiency 30 - 100 ng/mL (75 - 250 nmol/L) Toxicity >100 ng/mL (>250 nmol/L) Serum or plasma calcium shahnaz urement (mass/volume)Ordered By: Sai Villalba on 11-08-2023 Calcium [Mass/Vol] 10.3 mg/dL 8.5-10.1 [facility] Absolute lymphocyte countOrd ered By: Gucci Hickey on 10-26-2022 Lymphocytes Auto (Unsp spec) [#/Vol] 3.96 10*3/uL 0.83-4.51 [facility] Basophil percentageOrdered B y: Gucci Hickey on 10-26-2022 Basophils/100 WBC (Bld) 0.8 % 0-1 [facility] Bilirubin [Mass/Vol] 0.40 mg/dL 0.20-1.00 [facility] Comment on above: For patients on eltr ombopag therapy, use of Dimension [place] TBIL is not recommended. Chloride [Moles/Vol] 105 mmol/L 98-107 [facility] Eosinophils/100 WBC (Bld) 4.5 % 0-5 [facility] Glucose [Mass/Vol] 205 mg/dL 74-106 [facility] Comment on above: Glucose result great er than or equal to 200 mg/dLsuggests DIABETES MELLITUS per A.D.A. criteria. LDH [Catalytic activity/Vol] 122 U/L 84-246 [facility] Neutrophils (Bld) [#/Vol] 6.6 10*3/uL 2.0-7.7 [facility] Neutrophils/100 WBC (Bld) 54.5 % 47-70 [facility] Potassium [Moles/Vol] 4.1 mmol/L 3.5-5.1 [facility] Protein [Mass/Vol] 7.3 g/dL 6.4-8.2 [facility] Sodium [Moles/Vol] 139 mmol/L 136-145 [facility] WBC (Bld) [#/Vol] 12.1 10*3/uL 4.4-11.0 [facility] Blood erythrocytes count (nu mber/volume)Ordered By: Gucci Hickey on 10-26-2022 RBC (Bld) [#/Vol] 5.01 10*6/uL 4.2-5.4 [facility] Blood hemoglobin measurement (mass/volume)Ordered By: Gucci Hickey on 10-26-2022 Hemoglobin (Bld) [Mass/Vol] 14.6 g/dL 12.0-15.0 [facility] Blood lymphocytes/100 leukoc ytesOrdered By: Gucci Hickey on 10-26-2022 Lymphocytes/100 WBC (Bld) 32.9 % 19-41 [facility] Blood monocytes/100 leukocyt esOrdered By: Gucci Hickey on 10-26-2022 Monocytes/100 WBC (Bld) 6.8 % 0-10 [facility] Blood platelet mean volumeOr dered By: Gucci Hickey on 10-26-2022 Platelet mean volume (Bld) [Entitic vol] 10.5 fL 6.2-12.0 [facility] Determination of erythrocyte mean corpuscular volume (MCV)Ordered By: Gucci Hickey on 10-26-2022 MCV (RBC) [Entitic vol] 89.4 fL 81-99 [facility] Hematocrit Auto (Bld) [Volum e fraction]Ordered By: Gucci Hickey on 10-26-2022 Hematocrit (Bld) [Volume fraction] 44.8 % 37-47 [facility] Iron measurement (mass/mass) Ordered By: Gucci Hickey on 10-26-2022 Iron (Unsp spec) [Mass/Mass] 87 ug/dL 50-170 [facility] Laboratory - Chemistry and C hemistry - challengeOrdered By: Gucci Hickey on 10-26-2022 ALP [Catalytic activity/Vol] 72 U/L 45-117 [facility] ALT [Catalytic activity/Vol] 32 U/L 13-56 [facility] CO2 [Moles/Vol] 25.0 mmol/L 21.0-32.0 [facility] Globulin (S) [Mass/Vol] 3.8 g/dL 2.2-4.2 [facility] Urea nitrogen/Creatinine [Mass ratio] 15.7 mg/mg 10-20 [facility] Laboratory - Hematology and Cell countsOrdered By: Gucci Hickey on 10-26-2022 Erythrocyte distribution width (RBC) [Entitic vol] 41.8 fL 35.1-43.9 [facility] Erythrocyte distribution width (RBC) [Ratio] 12.8 % 11.6-14.6 [facility] Immature granulocytes/100 WBC (Bld) 0.500 % 0.0-0.9 [facility] Comment on above: IG% - Immature Granu locytes (promyelocytes, myelocytes and metamyelocytes) > 1% indicates that a LEFT SHIFT is Present. MCH (RBC) [Entitic mass] 29.1 pg 27.0-32.0 [facility] Nucleated RBC/100 WBC (Bld) [Ratio] 0 % 0-5 [facility] MCHC Auto (RBC) [Mass/Vol]Or dered By: Gucci Hickey on 10-26-2022 MCHC (RBC) [Mass/Vol] 32.6 g/dL 32-36 [facility] No Panel InformationOrdered By: Gucci Hickey on 10-26-2022 Estimated Creatinine Clearance Calc 47.70 ml/min [facility] Estimated GFR (MDRD) Amer 86 mL/min >60 [facility] Comment on above: GFR Calc Estimated GFR (MDRD) Non-Af Amer 71 mL/min >60 [facility] Comment on above: Non- GFR Calc Total Iron Binding Capacity 307 ug/dL 250-450 [facility] Platelets bldOrdered By: Niels Hickey on 10-26-2022 Platelets (Bld) [#/Vol] 293 10*3/uL 150-450 [facility] Serum or plasma albumin shahnaz urement (mass/volume)Ordered By: Gucci Hickey on 10-26-2022 Albumin [Mass/Vol] 3.5 g/dL 3.2-5.0 [facility] Serum or plasma albumin/glob ulin mass ratioOrdered By: Gucci Hickey on 10-26-2022 Albumin/Globulin [Mass ratio] 0.9 {ratio} 0.9-2.4 [facility] Serum or plasma calcium shahnaz urement (mass/volume)Ordered By: Gucci Hickey on 10-26-2022 Calcium [Mass/Vol] 10.2 mg/dL 8.5-10.1 [facility] Serum or plasma creatinine m easurement (mass/volume)Ordered By: Gucci Hickey on 10-26-2022 Creatinine [Mass/Vol] 0.83 mg/dL 0.55-1.02 [facility] Comment on above: The validity of the calculated GFR & GFRAA in patients over 70 years has not been determined. Clinical correlation is essential. Serum or plasma ferritin rajinder surement (mass/volume)Ordered By: Gucci Hickey on 10-26-2022 Ferritin [Mass/Vol] 185 ng/mL 8-252 [facility] Serum or plasma iron saturat ion measurement (mass fraction)Ordered By: Gucci Hickey on 10-26-2022 Iron saturation [Mass fraction] 28.3 % 15.0-55.0 [facility] Serum or plasma urea nitroge n measurement (mass/volume)Ordered By: Gucci Hickey on 10-26-2022 Urea nitrogen [Mass/Vol] 13 mg/dL 7-18 [facility] Thin prep Papanicolaou smear with manual screeningOrdered By: Gucci Hiceky on 10-26-2022 Thin prep Papanicolaou smear with manual screening 16 U/L 15-37 [facility] Thin prep Papanicolaou smear with manual screening 9 5-15 [facility] Blood manual differential co mment interpretation (narrative result)Ordered By: Gucci Hickey on 07-27-2022 Manual differential comment Nash (Bld) [Interp] SCANNED [facility] Erythrocyte sedimentation ra teOrdered By: Gucci Hickey on 07-27-2022 ESR (Bld) [Velocity] 19 mm/h 0-30 [facility] Hemoglobin in reticulocytes (mass per reticulocyte)Ordered By: Gucci Hickey on 07-27-2022 Hemoglobin (Reticulocytes) [Entitic mass] 31.8 pg 30-35 [facility] [facility] - Chemistry and C hemistry - challengeOrdered By: Gucci Hickey on 07-27-2022 Cobalamin (Vitamin B12) [Mass/Vol] 697 pg/mL 211-911 [facility] - Hematology and Cell countsOrdered By: Gucci Hickey on 07-27-2022 Anisocytosis Ql (Bld) 2+ [facility] Macrocytes detectionOrdered By: Gucci Hickey on 07-27-2022 Macrocytes Ql (Bld) 1+ [facility] No Panel InformationOrdered By: Gucci Hickey on 07-27-2022 Immature Reticulocyte Fraction 6.40 % 3.00-15.90 [facility] Reticulocyte Count 1.29 % 0.5-1.5 [facility] Thin prep Papanicolaou smear with manual screeningOrdered By: Gucci Hickey on 07-27-2022 Thin prep Papanicolaou smear with manual screening 1+ [facility] Stool gastrointestinal hemog lobin detection by immunologic methodOrdered By: Gucci Hickey on 06-04-2022 Lower GI hemoglobin IA Ql (Stl) [facility] Lower GI hemoglobin IA Ql (Stl) [facility] Stool gastrointestinal hemog lobin detection by immunologic methodOrdered By: Dr. Hickey on 06-04-2022 Lower GI hemoglobin IA Ql (Stl) [facility] Absolute lymphocyte countOrd ered By: Dr. Hickey on 06-01-2022 Lymphocytes Auto (Unsp spec) [#/Vol] 2.89 10*3/uL 0.83-4.51 [facility] Basophil percentageOrdered B y: Dr. Hickey on 06-01-2022 Basophil percentage 25-50 SEEN /hpf 0-5 [facility] Basophil percentage 3.3 mg/dL 2.5-4.9 [facility] Basophils/100 WBC (Bld) 0.8 % 0-1 [facility] Bilirubin [Mass/Vol] 0.30 mg/dL 0.20-1.00 [facility] Comment on above: For patients on eltr ombopag therapy, use of Dimension [place] TBIL is not recommended. Chloride [Moles/Vol] 108 mmol/L 98-107 [facility] Eosinophils/100 WBC (Bld) 3.2 % 0-5 [facility] Glucose [Mass/Vol] 141 mg/dL 74-106 [facility] Comment on above: Fasting Glucose resu lt greater than or equal to 126 mg/dL suggests DIABETES MELLITUS per A.D.A. criteria. LDH [Catalytic activity/Vol] 123 U/L 84-246 [facility] Neutrophils (Bld) [#/Vol] 7.9 10*3/uL 2.0-7.7 [facility] Neutrophils/100 WBC (Bld) 65.7 % 47-70 [facility] Potassium [Moles/Vol] 4.0 mmol/L 3.5-5.1 [facility] Protein [Mass/Vol] 7.3 g/dL 6.4-8.2 [facility] Sodium [Moles/Vol] 138 mmol/L 136-145 [facility] WBC (Bld) [#/Vol] 12.0 10*3/uL 4.4-11.0 [facility] Bilirubin Test strip Ql (U)O rdered By: Dr. Hickey on 06-01-2022 Bilirubin Ql (U) Negative Negative [facility] Blood erythrocytes count (nu mber/volume)Ordered By: Dr. Hickey on 06-01-2022 RBC (Bld) [#/Vol] 4.84 10*6/uL 4.2-5.4 [facility] Blood hemoglobin measurement (mass/volume)Ordered By: Dr. Hickey on 06-01-2022 Hemoglobin (Bld) [Mass/Vol] 10.9 g/dL 12.0-15.0 [facility] Blood lymphocytes/100 leukoc ytesOrdered By: Dr. Hickey on 06-01-2022 Lymphocytes/100 WBC (Bld) 24.1 % 19-41 [facility] Blood manual differential co mment interpretation (narrative result)Ordered By: Dr. Hickey on 06-01-2022 Manual differential comment Nash (Bld) [Interp] SCANNED [facility] Comment on above: 2+ ANISOCYTOSIS1+ ND CROCYTOSIS1+ MACROCYTOSIS Blood monocytes/100 leukocyt esOrdered By: Dr. Hickey on 06-01-2022 Monocytes/100 WBC (Bld) 5.9 % 0-10 [facility] Blood platelet mean volumeOr dered By: Dr. Hickey on 06-01-2022 Platelet mean volume (Bld) [Entitic vol] 10.9 fL 6.2-12.0 [facility] Determination of erythrocyte mean corpuscular volume (MCV)Ordered By: Dr. Hickey on 06-01-2022 MCV (RBC) [Entitic vol] 85.7 fL 81-99 [facility] Hematocrit Auto (Bld) [Volum e fraction]Ordered By: Dr. Hickey on 06-01-2022 Hematocrit (Bld) [Volume fraction] 41.5 % 37-47 [facility] Iron measurement (mass/mass) Ordered By: Dr. Hickey on 06-01-2022 Iron (Unsp spec) [Mass/Mass] 23 ug/dL 50-170 [facility] Ketones Test strip Ql (U)Ord ered By: Dr. Hickey on 06-01-2022 Ketones Ql (U) Negative Negative [facility] - Chemistry and C hemistry - challengeOrdered By: Dr. Hickey on 06-01-2022 ALP [Catalytic activity/Vol] 83 U/L 45-117 [facility] ALT [Catalytic activity/Vol] 24 U/L 13-56 [facility] CO2 [Moles/Vol] 27.0 mmol/L 21.0-32.0 [facility] Cobalamin (Vitamin B12) [Mass/Vol] 1460 pg/mL 211-911 [facility] Globulin (S) [Mass/Vol] 3.9 g/dL 2.2-4.2 [facility] Magnesium [Mass/Vol] 1.6 mg/dL 1.6-2.6 [facility] Urea nitrogen/Creatinine [Mass ratio] 21.0 mg/mg 10-20 [facility] - Hematology and Cell countsOrdered By: Dr. Hickey on 06-01-2022 Erythrocyte distribution width (RBC) [Entitic vol] 57.4 fL 35.1-43.9 [facility] Erythrocyte distribution width (RBC) [Ratio] 20.1 % 11.6-14.6 [facility] Immature granulocytes/100 WBC (Bld) 0.300 % 0.0-0.9 [facility] Comment on above: IG% - Immature Granu locytes (promyelocytes, myelocytes and metamyelocytes) > 1% indicates that a LEFT SHIFT is Present. MCH (RBC) [Entitic mass] 22.5 pg 27.0-32.0 [facility] Nucleated RBC/100 WBC (Bld) [Ratio] 0 % 0-5 [facility] MCHC Auto (RBC) [Mass/Vol]Or dered By: Dr. Hickey on 06-01-2022 MCHC (RBC) [Mass/Vol] 26.3 g/dL 32-36 [facility] Mucus LM Ql (Urine sed)Order ed By: Dr. Hickey on 06-01-2022 Mucus Ql (Urine sed) 0 SEEN /hpf [facility] Nitrite Test strip Ql (U)Ord ered By: Dr. Hickey on 04-17-2023 Nitrite Ql (U) Negative Negative [facility] No Panel InformationOrdered By: Dr. Hickey on 06-01-2022 Estimated GFR (MDRD) Amer 110 mL/min >60 [facility] Comment on above: GFR Calc Estimated GFR (MDRD) Non-Af Amer 91 mL/min >60 [facility] Comment on above: Non- GFR Calc Total Iron Binding Capacity 421 ug/dL 250-450 [facility] Platelets bldOrdered By: Dr. Hickey on 06-01-2022 Platelets (Bld) [#/Vol] 238 10*3/uL 150-450 [facility] PotassiumOrdered By: Gucci Hickey on 06-01-2022 Potassium [Mass/Vol] 3.3 mg/dL 2.5-4.9 [facility] Protein Test strip Ql (U)Ord ered By: Dr. Hickey on 06-01-2022 Protein Ql (U) 30 mg/dl High Negative [facility] Serum or plasma albumin shahnaz urement (mass/volume)Ordered By: Dr. Hickey on 06-01-2022 Albumin [Mass/Vol] 3.4 g/dL 3.2-5.0 [facility] Serum or plasma albumin/glob ulin mass ratioOrdered By: Dr. Hickey on 06-01-2022 Albumin/Globulin [Mass ratio] 0.9 {ratio} 0.9-2.4 [facility] Serum or plasma calcium shahnaz urement (mass/volume)Ordered By: Dr. Hickey on 06-01-2022 Calcium [Mass/Vol] 10.4 mg/dL 8.5-10.1 [facility] Serum or plasma creatinine m easurement (mass/volume)Ordered By: Dr. Hickey on 06-01-2022 Creatinine [Mass/Vol] 0.67 mg/dL 0.55-1.02 [facility] Comment on above: The validity of the calculated GFR & GFRAA in patients over 70 years has not been determined. Clinical correlation is essential. Serum or plasma ferritin rajinder surement (mass/volume)Ordered By: Dr. Hickey on 06-01-2022 Ferritin [Mass/Vol] 7 ng/mL 8-252 [facility] Serum or plasma folate measu rement (mass/volume)Ordered By: Dr. Hickey on 06-01-2022 Folate [Mass/Vol] 19.70 ng/mL 3.1-55.4 [facility] Serum or plasma iron saturat ion measurement (mass fraction)Ordered By: Dr. Hickey on 06-01-2022 Iron saturation [Mass fraction] 5.5 % 15.0-55.0 [facility] Serum or plasma urea nitroge n measurement (mass/volume)Ordered By: Dr. Hickey on 06-01-2022 Urea nitrogen [Mass/Vol] 14 mg/dL 7-18 [facility] Squamous epithelial cells de tection in urine sediment by light microscopyOrdered By: Dr. Hickey on 06-01-2022 Epithelial cells.squamous LM Ql (Urine sed) 0-5 SEEN /hpf 5-10 [facility] Thin prep Papanicolaou smear with manual screeningOrdered By: Dr. Hickey on 06-01-2022 Thin prep Papanicolaou smear with manual screening 14 U/L 15-37 [facility] Thin prep Papanicolaou smear with manual screening 3 5-15 [facility] Urine blood detectionOrdered By: Dr. Hickey on 06-01-2022 RBC Ql (U) 10 /ul High Negative [facility] RBC Ql (U) 0-5 SEEN /hpf 0-5 [facility] Urine clarityOrdered By: Dr. Hickey on 06-01-2022 Clarity (U) Clear Clear [facility] Urine color determinationOrd ered By: Dr. Hickey on 06-01-2022 Color (U) Yellow Yellow [facility] Urine glucose detectionOrder ed By: Dr. Hickey on 06-01-2022 Glucose Ql (U) Normal mg/dl Normal [facility] Urine leukocyte esterase det ection by dipstickOrdered By: Dr. Hickey on 06-01-2022 Leukocyte esterase Test strip Ql (U) 500 /ul High Negative [facility] Urine pHOrdered By: Dr. Hickey on 06-01-2022 pH (U) 6.0 [pH] 5.0 - 8.0 [facility] Urine sediment bacteria coun t by microscopy (number/high power field)Ordered By: Dr. Hickey on 06-01-2022 Bacteria LM.HPF (Urine sed) [#/Area] 1 /[HPF] None Seen [facility] Urine specific gravity measu rementOrdered By: Dr. Hickey on 06-01-2022 Specific gravity (U) [Rel density] 1.015 1.002-1.03 0 [facility] Urobilinogen Auto test strip Ql (U)Ordered By: Dr. Hickey on 06-01-2022 Urobilinogen Ql (U) Normal mg/dl Normal [facility] 24 hour urine alpha 2 globul in/total protein ratio by electrophoresis (mass fraction)Ordered By: Dr. Acosta on 05-19-2022 Alpha 2 globulin Elph (24H U) [Mass fraction] 18.7 % . [facility] 24 hour urine beta globulin/ total protein ratio by electrophoresis (mass fraction)Ordered By: Dr. Acosta on 05-19-2022 Beta globulin Elph (24H U) [Mass fraction] 29.1 % . [facility] 24 hour urine gamma globulin /total protein ratio by electrophoresis (mass fraction)Ordered By: Dr. Acosta on 05-19-2022 Gamma globulin Elph (24H U) [Mass fraction] 16.2 % . [facility] Absolute lymphocyte countOrd ered By: Dr. Acosta on 05-19-2022 Lymphocytes Auto (Unsp spec) [#/Vol] 3.60 10*3/uL 0.83-4.51 [facility] Basophil percentageOrdered B y: Dr. Acosta on 05-19-2022 Basophils/100 WBC (Bld) 0.7 % 0-1 [facility] Chloride [Moles/Vol] 106 mmol/L 98-107 [facility] Eosin[facility]/100 WBC (Bld) 1.7 % 0-5 [facility] Glucose [Mass/Vol] 133 mg/dL 74-106 [facility] Comment on above: Fasting Glucose resu lt greater than or equal to 126 mg/dL suggests DIABETES MELLITUS per A.D.A. criteria. Neutrophils (Bld) [#/Vol] 9.0 10*3/uL 2.0-7.7 [facility] Neutrophils/100 WBC (Bld) 64.0 % 47-70 [facility] Potassium [Moles/Vol] 3.8 mmol/L 3.5-5.1 [facility] Sodium [Moles/Vol] 138 mmol/L 136-145 [facility] WBC (Bld) [#/Vol] 14.0 10*3/uL 4.4-11.0 [facility] Blood erythrocytes count (nu mber/volume)Ordered By: Dr. Acosta on 05-19-2022 RBC (Bld) [#/Vol] 5.02 10*6/uL 4.2-5.4 [facility] Blood hemoglobin measurement (mass/volume)Ordered By: Dr. Acosta on 05-19-2022 Hemoglobin (Bld) [Mass/Vol] 10.6 g/dL 12.0-15.0 [facility] Blood lymphocytes/100 leukoc ytesOrdered By: Dr. Acosta on 05-19-2022 Lymphocytes/100 WBC (Bld) 25.8 % 19-41 [facility] Blood monocytes/100 leukocyt esOrdered By: Dr. Acosta on 05-19-2022 Monocytes/100 WBC (Bld) 7.4 % 0-10 [facility] Blood platelet mean volumeOr dered By: Dr. Acosta on 05-19-2022 Platelet mean volume (Bld) [Entitic vol] 11.3 fL 6.2-12.0 [facility] Determination of erythrocyte mean corpuscular volume (MCV)Ordered By: Dr. Acosta on 05-19-2022 MCV (RBC) [Entitic vol] 75.1 fL 81-99 [facility] Hematocrit Auto (Bld) [Volum e fraction]Ordered By: Dr. Acosta on 05-19-2022 Hematocrit (Bld) [Volume fraction] 37.7 % 37-47 [facility] - Chemistry and C hemistry - challengeOrdered By: Dr. Acosta on 05-19-2022 Albumin [Mass/Vol] 3.3 g/dL 2.9-4.4 [facility] CO2 [Moles/Vol] 25.0 mmol/L 21.0-32.0 [facility] Urea nitrogen/Creatinine [Mass ratio] 26.0 mg/mg 10-20 [facility] - Hematology and Cell countsOrdered By: Dr. Acosta on 05-19-2022 Erythrocyte distribution width (RBC) [Entitic vol] 46.5 fL 35.1-43.9 [facility] Erythrocyte distribution width (RBC) [Ratio] 17.7 % 11.6-14.6 [facility] Immature granulocytes/100 WBC (Bld) 0.400 % 0.0-0.9 [facility] Comment on above: IG% - Immature Granu locytes (promyelocytes, myelocytes and metamyelocytes) > 1% indicates that a LEFT SHIFT is Present. MCH (RBC) [Entitic mass] 21.1 pg 27.0-32.0 [facility] Nucleated RBC/100 WBC (Bld) [Ratio] 0 % 0-5 [facility] MCHC Auto (RBC) [Mass/Vol]Or dered By: Dr. Acosta on 05-19-2022 MCHC (RBC) [Mass/Vol] 28.1 g/dL 32-36 [facility] No Panel InformationOrdered By: Dr. Acosta on 05-19-2022 Addendum Document Comment . [facility] Comment on above: The SPE pattern appe ars unremarkable. Evidence ofmonoclonal protein is not apparent. Ctpye-5-Cglhsabag 0.2 g/dL 0.0-0.4 [facility] Qmoly-8-Grhscjhmw 1.0 g/dL 0.4-1.0 [facility] Estimated GFR (MDRD) Amer 94 mL/min >60 [facility] Comment on above: GFR Calc Estimated GFR (MDRD) Non-Af Amer 77 mL/min >60 [facility] Comment on above: Non- GFR Calc Gamma Globulins 0.7 g/dL 0.4-1.8 [facility] Ionized Calcium 5.7 mg/dL 4.5-5.6 [facility] Comment on above: Performed at: [facility] [address] [id number] Director: Basim Hansen PhD, Phone: [phone] Miscellaneous Test See comment [facility] Comment on above: TEST RESULT LIMITSPT HrP (PTH-Related Peptide) <2.0 pmol/LThis test was developed and its performance characteristicsdetermined by [facility] It has not been cleared or approvedby the Food and Drug Administration.Reference Range:All Ages: <2.0The PTHrP assay should not be used to exclude cancer orscreen tumor patients for humoral hypercalcemia ofmalignancy (HHM). The results should always be assessed inconjunction with the patient's medical history, clinicalexamination, and other findings. If test results areclinically discordant, please contact the laboratory. TESTING PERFORMED AT [facility]. ORIGINAL REPORT ON FILE IN LAB CONTAINS ADDITIONAL TEST SITE INFORMATION. Parathyroid Hormone (Intact) 126.6 pg/mL 18.4-80.1 [facility] Urine Immunofixation PEP Note Comment . [facility] Comment on above: Protein electrophore sis scan will follow via computer,mail, or psychiatry teacher delivery. Vitamin D 25-Hydroxy 9.6 ng/mL [facility] Comment on above: Vitamin D 25(OH) Sta tus Range Deficiency <20 ng/mL (50nmol/L) Insufficiency 20 - 30 ng/mL (50 - 75 nmol/L) Sufficiency 30 - 100 ng/mL (75 - 250 nmol/L) Toxicity >100 ng/mL (>250 nmol/L) Platelets bldOrdered By: Dr. Acosta on 05-19-2022 Platelets (Bld) [#/Vol] 364 10*3/uL 150-450 [facility] Protein Fractions Elph [Inte rp]Ordered By: Dr. Acosta on 05-19-2022 Protein Fractions [Interp] Comment . [facility] Comment on above: Protein electrophore sis scan will follow via computer,mail, or psychiatry teacher delivery. Serum albumin to globulin ra umm by protein electrophoresisOrdered By: Dr. Acosta on 05-19-2022 Albumin/Globulin Elph [Mass ratio] 1.0 0.7-1.7 [facility] Serum globulin measurement ( mass/volume)Ordered By: Dr. Acosta on 05-19-2022 Globulin (S) [Mass/Vol] 3.2 g/dL 2.2-3.9 [facility] Serum or plasma beta globuli n measurement by electrophoresis (mass/volume)Ordered By: Dr. Acosta on 05-19-2022 Beta globulin Elph [Mass/Vol] 1.3 g/dL 0.7-1.3 [facility] Serum or plasma calcitriol m easurement (mass/volume)Ordered By: Dr. Acosta on 05-19-2022 1,25-dihydroxyvitamin D3 [Mass/Vol] 47.3 pg/mL 24.8-81.5 [facility] Comment on above: Performed at: [facility] - [address] [id number] Director: Bret Tello MD, Phone: [phone] Serum or plasma calcium shahnaz urement (mass/volume)Ordered By: Dr. Acosta on 05-19-2022 Calcium [Mass/Vol] 10.4 mg/dL 8.5-10.1 [facility] Serum or plasma creatinine m easurement (mass/volume)Ordered By: Dr. Acosta on 05-19-2022 Creatinine [Mass/Vol] 0.77 mg/dL 0.55-1.02 [facility] Comment on above: The validity of the calculated GFR & GFRAA in patients over 70 years has not been determined. Clinical correlation is essential. Serum or plasma urea nitroge n measurement (mass/volume)Ordered By: Dr. Acosta on 05-19-2022 Urea nitrogen [Mass/Vol] 20 mg/dL 7-18 [facility] Thin prep Papanicolaou smear with manual screeningOrdered By: Dr. Acosta on 05-19-2022 Thin prep Papanicolaou smear with manual screening 7 5-15 [facility] Thin prep Papanicolaou smear with manual screening See comment [facility] Comment on above: Result: Not Observed Total protein bloodOrdered B y: Dr. Acosta on 05-19-2022 Protein [Mass/Vol] 6.5 g/dL 6.0-8.5 [facility] Urine albumin/total protein mass ratio by electrophoresisOrdered By: Dr. Acosta on 05-19-2022 Albumin Elph (U) [Mass fraction] 29.1 % . [facility] Urine alpha 1 globulin/total protein ratio by electrophoresis (mass fraction)Ordered By: Dr. Acosta on 05-19-2022 Alpha 1 globulin Elph (U) [Mass fraction] 6.9 % . [facility] Urine monoclonal protein/tot al protein mass ratio by electrophoresisOrdered By: Dr. Acosta on 05-19-2022 Protein.monoclonal Elph (U) [Mass fraction] See comment [facility] Comment on above: Result: Not Observed Urine protein measurement (m ass/volume)Ordered By: Dr. Acosta on 05-19-2022 Protein (U) [Mass/Vol] 12.3 mg/dL Not Estab. [facility] Absolute lymphocyte countOrd ered By: Dr. Acosta on 05-11-2022 Lymphocytes Auto (Unsp spec) [#/Vol] 4.53 10*3/uL 0.83-4.51 [facility] Basophil percentageOrdered B y: Dr. Acosta on 05-11-2022 Basophils/100 WBC (Bld) 0.9 % 0-1 [facility] Bilirubin [Mass/Vol] 0.20 mg/dL 0.20-1.00 [facility] Comment on above: For patients on eltr ombopag therapy, use of Dimension [place] TBIL is not recommended. Chloride [Moles/Vol] 106 mmol/L 98-107 [facility] Cholesterol [Mass/Vol] 194 mg/dL <200 [facility] Comment on above: <200 mg/dL Desirable 200-240 mg/dL Borderline >240 mg/dL High Risk Eosinophils/100 WBC (Bld) 1.8 % 0-5 [facility] Glucose [Mass/Vol] 148 mg/dL 74-106 [facility] Comment on above: Fasting Glucose resu lt greater than or equal to 126 mg/dL suggests DIABETES MELLITUS per A.D.A. criteria. Neutrophils (Bld) [#/Vol] 9.0 10*3/uL 2.0-7.7 [facility] Neutrophils/100 WBC (Bld) 59.5 % 47-70 [facility] Potassium [Moles/Vol] 5.4 mmol/L 3.5-5.1 [facility] Protein [Mass/Vol] 7.5 g/dL 6.4-8.2 [facility] Sodium [Moles/Vol] 138 mmol/L 136-145 [facility] Triglyceride [Mass/Vol] 220 mg/dL <199 [facility] Comment on above: The drugs N-Acetylcy steine and Metamizole may falsely depress this assay.Serum Triglycerides Reference Interval Normal <150 mg/dL Borderline high 150 - 199 mg/dL High 200 - 499 mg/dL Very High > or = 500 mg/dL WBC (Bld) [#/Vol] 15.1 10*3/uL 4.4-11.0 [facility] Blood erythrocytes count (nu mber/volume)Ordered By: Dr. Acosta on 05-11-2022 RBC (Bld) [#/Vol] 5.31 10*6/uL 4.2-5.4 [facility] Blood hemoglobin measurement (mass/volume)Ordered By: Dr. Acosta on 05-11-2022 Hemoglobin (Bld) [Mass/Vol] 11.3 g/dL 12.0-15.0 [facility] Blood lymphocytes/100 leukoc ytesOrdered By: Dr. Acosta on 05-11-2022 Lymphocytes/100 WBC (Bld) 30.1 % 19-41 [facility] Blood monocytes/100 leukocyt esOrdered By: Dr. Acosta on 05-11-2022 Monocytes/100 WBC (Bld) 7.3 % 0-10 [facility] Blood platelet mean volumeOr dered By: Dr. Acosta on 05-11-2022 Platelet mean volume (Bld) [Entitic vol] 11.8 fL 6.2-12.0 [facility] Determination of erythrocyte mean corpuscular volume (MCV)Ordered By: Dr. Acosta on 05-11-2022 MCV (RBC) [Entitic vol] 75.5 fL 81-99 [facility] Hematocrit Auto (Bld) [Volum e fraction]Ordered By: Dr. Acosta on 05-11-2022 Hematocrit (Bld) [Volume fraction] 40.1 % 37-47 [facility] Laboratory - Chemistry and C hemistry - challengeOrdered By: Dr. Acosta on 05-11-2022 ALP [Catalytic activity/Vol] 87 U/L 45-117 [facility] ALT [Catalytic activity/Vol] 34 U/L 13-56 [facility] CO2 [Moles/Vol] 28.0 mmol/L 21.0-32.0 [facility] Globulin (S) [Mass/Vol] 3.9 g/dL 2.2-4.2 [facility] Urea nitrogen/Creatinine [Mass ratio] 25.6 mg/mg 10-20 [facility] Laboratory - Hematology and Cell countsOrdered By: Dr. Acosta on 05-11-2022 Erythrocyte distribution width (RBC) [Entitic vol] 45.7 fL 35.1-43.9 [facility] Erythrocyte distribution width (RBC) [Ratio] 17.2 % 11.6-14.6 [facility] Immature granulocytes/100 WBC (Bld) 0.400 % 0.0-0.9 [facility] Comment on above: IG% - Immature Granu locytes (promyelocytes, myelocytes and metamyelocytes) > 1% indicates that a LEFT SHIFT is Present. MCH (RBC) [Entitic mass] 21.3 pg 27.0-32.0 [facility] Nucleated RBC/100 WBC (Bld) [Ratio] 0 % 0-5 [facility] MCHC Auto (RBC) [Mass/Vol]Or dered By: Dr. Acosta on 05-11-2022 MCHC (RBC) [Mass/Vol] 28.2 g/dL 32-36 [facility] No Panel InformationOrdered By: Dr. Acosta on 05-11-2022 Estimated GFR (MDRD) Amer 98 mL/min >60 [facility] Comment on above: GFR Calc Estimated GFR (MDRD) Non-Af Amer 81 mL/min >60 [facility] Comment on above: Non- GFR Calc Thyroid Stimulating Hormone (TSH) 0.40 uIU/mL 0.358-3.74 [facility] Urine Microalbumin/Creatinine Ratio 11.2 mg/g CRE <30 [facility] Platelets bldOrdered By: Dr. Acosta on 05-11-2022 Platelets (Bld) [#/Vol] 360 10*3/uL 150-450 [facility] Serum or plasma albumin shahnaz urement (mass/volume)Ordered By: Dr. Acosta on 05-11-2022 Albumin [Mass/Vol] 3.6 g/dL 3.2-5.0 [facility] Serum or plasma albumin/glob ulin mass ratioOrdered By: Dr. Acosta on 05-11-2022 Albumin/Globulin [Mass ratio] 0.9 {ratio} 0.9-2.4 [facility] Serum or plasma calcium shahnaz urement (mass/volume)Ordered By: Dr. Acosta on 05-11-2022 Calcium [Mass/Vol] 10.8 mg/dL 8.5-10.1 [facility] Serum or plasma cholesterol in HDL measurement (mass/volume)Ordered By: Dr. Acosta on 05-11-2022 Cholesterol in HDL [Mass/Vol] 58 mg/dL >40 [facility] Comment on above: The drugs N-Acetylcy steine and Metamizole may falsely depress this assay. Reference Range HDL <40 mg/dL Low HDL Cholesterol HDL >or= 60 mg/dL High HDL Cholesterol Serum or plasma cholesterol in VLDL measurement (mass/volume)Ordered By: Dr. Acosta on 05-11-2022 Cholesterol in VLDL [Mass/Vol] 44 mg/dL 5-40 [facility] Serum or plasma creatinine m easurement (mass/volume)Ordered By: Dr. Acosta on 05-11-2022 Creatinine [Mass/Vol] 0.74 mg/dL 0.55-1.02 [facility] Comment on above: The validity of the calculated GFR & GFRAA in patients over 70 years has not been determined. Clinical correlation is essential. Serum or plasma low density lipoprotein (LDL) cholesterol measurement (mass/volume)Ordered By: Dr. Acosta on 05-11-2022 Cholesterol in LDL [Mass/Vol] 92 mg/dL 0-130 [facility] Serum or plasma urea nitroge n measurement (mass/volume)Ordered By: Dr. Acosta on 05-11-2022 Urea nitrogen [Mass/Vol] 19 mg/dL 7-18 [facility] Thin prep Papanicolaou smear with manual screeningOrdered By: Dr. Acosta on 05-11-2022 Thin prep Papanicolaou smear with manual screening 27 U/L 15-37 [facility] Thin prep Papanicolaou smear with manual screening 4 5-15 [facility] Thin prep Papanicolaou smear with manual screening 10.2 mg/L NO RANGE EST. [facility] Urine creatinine measurement (mass/volume)Ordered By: Dr. Acosta on 05-11-2022 Creatinine (U) [Mass/Vol] 90.80 mg/dL NO RANGE EST. [facility] Vital Signs Date Time Vital Sign Value Performing Clinician Faci lity 10-23-2024 10:34-0400 Body height 160.[address] Jovanni Acosta DO Work Phone: [facility] 10-23-2024 10:34-0400 Body mass index (BMI) [Ratio] 33 kg/m2 Dr. Jovanni Acosta DO Work Phone: [facility] 10-23-2024 10:34-0400 Body temperature 97 [degF] Dr. Jovanni Acosta DO Work Phone: [facility] 10-23-2024 10:34-0400 Body weight 84.[address] Jovanni Acosta DO Work Phone: [facility] 10-23-2024 10:34-0400 Diastolic blood pressure 73 mm[Hg] Dr. Jovanni Acosta DO Work Phone: [facility] 10-23-2024 10:34-0400 Heart rate 71 /min Dr. Jovanni Acosta DO Work Phone: [facility] 10-23-2024 10:34-0400 Respiratory rate 18 /min Dr. Jovanni Acosta DO Work Phone: [facility] 10-23-2024 10:34-0400 SaO2% (BldA) [Mass fraction] 95 % Dr. Jovanni Acosta DO Work Phone: [facility] 10-23-2024 10:34-0400 Systolic blood pressure 117 mm[Hg] Dr. Jovanni Acosta DO Work Phone: [facility] 01-08-2023 12:50-0500 Body height 160.[address] Jovanni Acosta Work Phone: [facility] 01-08-2023 12:50-0500 Body temperature 97.1 [degF] Dr. Jovanni Acosta Work Phone: [facility] 01-08-2023 12:50-0500 Diastolic blood pressure 70 mm[Hg] Dr. Jovanni Acosta Work Phone: [facility] 01-08-2023 12:50-0500 Heart rate 76 /min Dr. Jovanni Acosta Work Phone: [facility] 01-08-2023 12:50-0500 Respiratory rate 16 /min Dr. Jovanni Acosta Work Phone: [facility] 01-08-2023 12:50-0500 SaO2% (BldA) [Mass fraction] 95 % Dr. Jovanni Acosta Work Phone: [facility] 01-08-2023 12:50-0500 Systolic blood pressure 119 mm[Hg] Dr. Jovanni Acosta Work Phone: [facility] 10-26-2022 15:00-0400 Body height 160.[address] Jovanni Acosta Work Phone: [facility] 10-26-2022 15:00-0400 Body mass index (BMI) [Ratio] 34.4 kg/m2 Dr. Jovanni Acosta Work Phone: [facility] 10-26-2022 15:00-0400 Body temperature 98.1 [degF] Dr. Jovanni Acosta Work Phone: [facility] 10-26-2022 15:00-0400 Body weight 88.[address] Jovanni Acosta Work Phone: [facility] 10-26-2022 15:00-0400 Diastolic blood pressure 70 mm[Hg] Dr. Jovanni Acosta Work Phone: [facility] 10-26-2022 15:00-0400 Heart rate 76 /min Dr. Jovanni Acosta Work Phone: [facility] 10-26-2022 15:00-0400 Respiratory rate 18 /min Dr. Jovanni Acosta Work Phone: [facility] 10-26-2022 15:00-0400 SaO2% (BldA) [Mass fraction] 97 % Dr. Jovanni Acosta Work Phone: [facility] 10-26-2022 15:00-0400 Systolic blood pressure 110 mm[Hg] Dr. Jovanni Acosta Work Phone: [facility] 09-22-2022 13:30-0400 Body mass index (BMI) [Ratio] 34.2 kg/m2 Dr. Jovanni Acosta Work Phone: [facility] 09-22-2022 13:30-0400 Body temperature 97.8 [degF] Dr. Jovanni Acosta Work Phone: [facility] 09-22-2022 13:30-0400 Body weight 87.[address] Jovanni Acosta Work Phone: [facility] 09-22-2022 13:30-0400 Diastolic blood pressure 82 mm[Hg] Dr. Jovanni Acosta Work Phone: [facility] 09-22-2022 13:30-0400 Heart rate 68 /min Dr. Jovanni Acosta Work Phone: [facility] 09-22-2022 13:30-0400 Respiratory rate 16 /min Dr. Jovanni Acosta Work Phone: [facility] 09-22-2022 13:30-0400 SaO2% (BldA) [Mass fraction] 96 % Dr. Jovanni Acosta Work Phone: [facility] 09-22-2022 13:30-0400 Systolic blood pressure 128 mm[Hg] Dr. Jovanni Acosta Work Phone: [facility] 07-27-2022 15:26-0400 Body mass index (BMI) [Ratio] 34.2 kg/m2 Dr. Jovanni Acosta Work Phone: [facility] 07-27-2022 15:26-0400 Body temperature 97.4 [degF] Dr. Jovanni Acosta Work Phone: [facility] 07-27-2022 15:26-0400 Body weight 87.[address] Jovanni Acosta Work Phone: [facility] 07-27-2022 15:26-0400 Diastolic blood pressure 81 mm[Hg] Dr. Jovanni Acosta Work Phone: [facility] 07-27-2022 15:26-0400 Heart rate 69 /min Dr. Jovanni Acosta Work Phone: [facility] 07-27-2022 15:26-0400 Respiratory rate 16 /min Dr. Jovanni Acosta Work Phone: [facility] 07-27-2022 15:26-0400 SaO2% (BldA) [Mass fraction] 95 % Dr. Jovanni Acosta Work Phone: [facility] 07-27-2022 15:26-0400 Systolic blood pressure 124 mm[Hg] Dr. Jovanni Acosta Work Phone: [facility] 06-11-2022 11:29-0400 Body temperature 96.5 [degF] Dr. Jovanni Acosta Work Phone: [facility] 06-11-2022 11:29-0400 Diastolic blood pressure 67 mm[Hg] Dr. Jovanni Acosta Work Phone: [facility] 06-11-2022 11:29-0400 Heart rate 66 /min Dr. Jovanni Acosta Work Phone: [facility] 06-11-2022 11:29-0400 Respiratory rate 16 /min Dr. Jovanni Acosta Work Phone: [facility] 06-11-2022 11:29-0400 SaO2% (BldA) [Mass fraction] 96 % Dr. Jovanni Acosta Work Phone: [facility] 06-11-2022 11:29-0400 Systolic blood pressure 134 mm[Hg] Dr. Jovanni Acosta Work Phone: [facility] 06-11-2022 10:53-0400 Body height 160.[address] Jovanni Acosta Work Phone: [facility] 06-11-2022 10:53-0400 Body mass index (BMI) [Ratio] 33.1 kg/m2 Dr. Jovanni Acosta Work Phone: [facility] 06-11-2022 10:53-0400 Body weight 84.[address] Jovanni Acosta Work Phone: [facility] 06-01-2022 08:57-0400 Body mass index (BMI) [Ratio] 34 kg/m2 Dr. Jovanni Acosta Work Phone: [facility] 06-01-2022 08:57-0400 Body temperature 98.2 [degF] Dr. Jovanni Acosta Work Phone: [facility] 06-01-2022 08:57-0400 Body weight 87.[address] Jovanni Acosta Work Phone: [facility] 06-01-2022 08:57-0400 Diastolic blood pressure 73 mm[Hg] Dr. Jovanni Acosta Work Phone: [facility] 06-01-2022 08:57-0400 Heart rate 77 /min Dr. Jovanni Acosta Work Phone: [facility] 06-01-2022 08:57-0400 Respiratory rate 16 /min Dr. Jovanni Acosta Work Phone: [facility] 06-01-2022 08:57-0400 SaO2% (BldA) [Mass fraction] 96 % Dr. Jovanni Acosta Work Phone: [facility] 06-01-2022 08:57-0400 Systolic blood pressure 111 mm[Hg] Dr. Jovanni Acosta Work Phone: [facility] Encounters Encounter Date Encounter Type Care Provider Facility Start: 11-07-2024 End: 11-07-[address] Jovanni Acosta DO Work Phone: -[facility] [place] Start: 11-07-2024 End: 11-07-2024 Patient encounter procedure Jemima Shipmangar [employer] -[facility] [place] Work Phone: Start: 11-07-2024 End: 11-07-2024 ambulatory Jemima Landry Facility:[facility] Start: 10-23-[address] Gucci Hickey MD -[facility] Start: 10-23-2024 End: 10-23-[address] Gucci Hickey MD -[facility] Work Phone: Start: 10-23-2024 End: 10-23-[address] Jovanni Acosta DO Work Phone: -[facility] Start: 10-02-2024 End: 10-02-[address] Jovanni Acosta DO Work Phone: -[facility] [place] Start: 10-02-2024 End: 10-02-[address] Jovanni Acosta DO -[facility] [place] Work Phone: Start: 10-02-2024 End: 10-02-2024 ambulatory Jovanni Acosta Facility:[facility] Start: 07-11-2024 End: 07-11-[address] Sai Villalba MD -[facility] Work Phone: Start: 07-11-2024 End: 07-11-[address] Jovanni Acosta DO Work Phone: [facility] Work Phone: Start: 06-23-2024 End: 06-23-[address] Jovanni Acosta DO Work Phone: [facility] Work Phone: Start: 06-23-2024 End: 06-23-[address] Jovanni Acosta DO -Ultrasound, [facility] Work Phone: Start: 06-23-2024 End: 06-23-2024 ambulatory Jovanni Acosta Facility:[facility] Start: 06-19-2024 End: 06-19-[address] Jovanni Acosta DO Work Phone: [facility] Work Phone: Start: 06-19-2024 End: 06-19-[address] Abdirahman Alvarez MD -Radiology, [place] Work Phone: Start: 06-19-2024 End: 06-19-2024 ambulatory Abdirahman Alvarez Facility:[facility] Start: 04-04-2024 End: 04-04-2024 Patient encounter procedure Sally Robfield -[facility]iology, [place] Work Phone: Start: 04-04-2024 End: 04-04-2024 ambulatory Jovanni Acosta Facility:[facility] Start: 01-11-2024 End: 01-11-2024 ambulatory Jovanni Acosta Facility:[facility] Start: 12-06-2023 End: 12-06-2023 ambulatory Jovanni Acosta Facility:[facility] Start: 01-08-2023 End: 01-08-[address] Jovanni Acosta Work Phone: [facility] Work Phone: Start: 01-08-2023 End: 01-08-[address] Jovanni Acosta Work Phone: [facility]-Medical Out Work Phone: Start: 12-23-2022 End: 12-23-[address] Jovanni Acosta Work Phone: [facility] Work Phone: Start: 12-23-2022 End: 12-23-[address] Jovanni Acosta Work Phone: [facility]-Laboratory, [facility] Start: 10-26-[address] Jovanni Acosta Work Phone: [facility] Start: 10-26-2022 End: 10-26-[address] Jovanni Acosta Work Phone: [facility] Work Phone: Start: 10-26-2022 End: 10-26-[address] Jovanni Acosta Work Phone: [facility] Work Phone: Start: 09-22-2022 End: 09-22-[address] Jovanni Acosta Work Phone: [facility] Work Phone: Start: 07-27-2022 End: 07-27-[address] Jovanni Acosta Work Phone: [facility] Work Phone: Start: 06-11-[address] Jovanni Acosta Work Phone: [facility] Start: 06-10-2022 End: 06-10-[address] Jovanni Acosta Work Phone: [facility] Work Phone: Start: 06-10-2022 End: 06-10-[address] Jovanni Acosta Work Phone: [facility]-Outpatient Bone Densitometry Start: 06-01-2022 End: 06-01-[address] Jovanni Acosta Work Phone: [facility] Start: 05-19-2022 End: 05-19-2022 ambulatory [facility] Work Phone: Start: 05-19-2022 End: 05-19-2022 Patient encounter procedure [facility] Start: 05-11-2022 End: 05-11-2022 ambulatory [facility] Work Phone: Start: 05-11-2022 End: 05-11-2022 Patient encounter procedure [facility]-Laboratory, [facility] Carter [facility] Start: 10-02-2021 End: 10-02-2021 ambulatory [facility] Work Phone: Start: 10-02-2021 End: 10-02-2021 Patient encounter procedure [facility]-Radiology, [place] Start: 07-18-2021 End: 07-18-2021 Patient encounter procedure [facility]-Outpatient Breast Imaging Start: 03-26-2021 End: 03-26-2021 Patient encounter procedure [facility]-Radiology, [place] Start: 03-04-2021 End: 03-04-2021 Discharged Recurring [facility]-Massage Therapy, [facility] Start: 01-16-2019 Patient encounter status [facility] Procedures Date Procedure Procedure Detail Performing Clinician Start: 11-07-2024 Radiologic exam ches t [address] Jovanni Acosta DO Work Phone: Start: 10-23-[address] Jovanni Acosta DO Work Phone: Start: 10-23-2024 Total iron binding c apacity measurement Dr. Jovanni Acosta DO Work Phone: Start: 10-02-2024 X-ray of chest posteroanterior view Dr. Jovanni Acosta DO Work Phone: Start: 06-23-[address] Jovanni Acosta DO Work Phone: Start: 06-19-2024 X-ray of unilateral ribs, two views without x-ray of chest Dr. Jovanni Acosta DO Work Phone: Start: 06-19-2024 X-ray of chest, PA a nd lateral views Dr. Jovanni Acosta DO Work Phone: Start: 06-19-2024 X-ray of thoracic sp ine, three views Dr. Jovanni Acosta DO Work Phone: Start: 04-04-2024 Complete x-ray serie s of lumbosacral spine including bending views Dr. Jovanni Acosta DO Work Phone: Start: 04-04-2024 Plain x-ray of pelvi s and lower extremity Dr. Jovanni Acosta DO Work Phone: Start: 10-28-2023 Measurement of renal function Dr. Jovanni Acosta DO Work Phone: Comment on above: GFR Calc Start: 10-26-2022 Screening mammography Matthew Acosta Work Phone: Start: 07-27-2022 Allergen spec ige cr ude allergen extract each Dr. Jovanni Acosta DO Work Phone: Start: 06-10-2022 Diagnostic radiograp hy of abdomen Dr. Jovanni Acosta Work Phone: Start: 06-10-2022 Dual energy X-ray absorptiometry Dr. Jovanni Acosta Work Phone: Start: 06-04-2022 Measurement of occul t blood in stool specimen using immunoassay Dr. Jovanni Acosta Work Phone: Start: 06-01-[address] Jovanni Acosta DO Work Phone: Start: 10-02-2021 X-ray of cervical spine Start: 07-18-2021 Screening mammography Start: 03-26-2021 X-ray of chest posteroanterior view Start: 03-26-2021 X-ray of lumbosacral spine Plan of Treatment Date Care Activity Detail Author Start: 12-04-2024 ambulatory Ambulatory Facility:[facility] Start: 10-23-2024 [facility] Start: 06-23-2024 Ultrasonography of abdomen Abdomen L imited [facility] Start: 05-19-2022 Procedure [facility] Calcium [Mass/volume ] in Serum or Plasma [facility] Vitamin D, 25-hydrox y measurement [facility] Immunizations Immunization Date Immunization Notes Care Provider Fa cility 05-09-2020 Covid (Pfizer) [facility] 04-18-2020 Covid (Pfizer) [facility] 11-15-[address] [facility] 11-18-[address] [facility] 10-16-2012 pneumococcal polysaccharide vaccine, 23 valent [facility] Payers Date Payer Category Payer Self-pay [id number] 2015 Private Health Insurance [id number] 2012 Medicare [id number] Unknown [id number] 2.16.8 [id number] Unknown [id number] 2.16.8 [id number] Unknown [id number] 2.16.8 [id number] Unknown [id number] 2.16.8 [id number] Unknown [id number] 2.16.8 [id number] Unknown [id number] 2.16.8 [id number] Unknown [id number] 2.16.8 [id number] Unknown [id number] 2.16.8 [id number] Unknown [id number] 2.16.8 [id number] Unknown [id number] 2.16.8 [id number] Unknown [id number] 2.16.8 [id number] Social History Date Type Detail Facility Start: 04-02-2020 End: 04-02-2020 Tobacco smoking status NHIS Unknown if ever smoked [facility] Start: 10-01-2019 None [facility] Start: 10-01-2019 Spouse/ Signif icant Other [facility] Start: 04-02-2020 Secondhand [facility] Start: 1945 Sex Assigned At Female [facility] Start: 12-28-2023 Tobacco smoking status NHIS Never smoked tobacco (finding) [facility] Sex Female [facility] Medical Equipment Procedure Code Equipment Code Equipment Origin al Text Equipment Identifier Dates Baha sound processor-implant date unknown FDA Start: 02-16-2000 Baha sound processor-implant date unknown FDA Start: 02-16-2000 Baha sound processor-implant date unknown FDA Start: 02-16-2000 Baha sound processor-implant date unknown FDA Start: 02-16-2000 Baha sound processor-implant date unknown FDA Start: 02-16-2000 Baha sound processor-implant date unknown FDA Start: 02-16-2000 Baha sound processor-implant date unknown FDA Start: 02-16-2000 Baha sound processor-implant date unknown FDA Start: 02-16-2000 Baha sound processor-implant date unknown FDA Start: 02-16-2000 Baha sound processor-implant date unknown FDA Start: 02-16-2000 Baha sound processor-implant date unknown FDA Start: 02-16-2000 Baha sound processor-implant date unknown FDA Start: 02-16-2000 Baha sound processor-implant date unknown FDA Start: 02-16-2000 Baha sound processor-implant date unknown FDA Start: 02-16-2000 Baha sound processor-implant date unknown FDA Start: 02-16-2000 Mental Status Date Assessment Result Facility 01-08-2023 Cognitive function Awake;Alert;A ppropriate;Fol lows Commands [facility] Work Phone: 06-11-2022 Cognitive function Voice/Name [facility] Work Phone: Clinical Notes 06-20-2024 to 11-07-2024 Note Date & Type Note Facility 11-07-2024 Radiology Diagnostic study note [facility] Imaging Services [address] [place] [address] Chest PA and Lateral MR#: [id number] Acct: [id number] Name: SANTIAGO ZURITA Rep #: [id number] : 1945 F 79 From: Tommy Hendrix MD PCP: Dr. Jovanni Acosta DO Status: REG CLI Study:Chest PA and Lateral Date of Exam: 11/07/24 Exam# [id number] Ordering Dr: Ra rojelio Landry [employer] PROCEDURE: CHEST PA AND LATERAL 11/07/2024 REASON FOR EXAM: RULE OUT PNEUMONIA TECHNIQUE: Procedure Code: RADCXR Modality: DX Procedure: CHEST PA AND LATERAL COMPARISON: Two-view chest, 10/02/2024. FINDINGS: Suboptimal inspiration but the lungs appear clear. The heart borders mediastinum and pulmonary vascular pattern are normal. The upper abdominal bowel gas pattern is normal. There is mild dextroscoliosis of the thoracic spine. RAD/Chest PA and Lateral IMPRESSION: No evidence of acute cardiopulmonary pathology. Reading Location: [id number] CC: [employer] Jemima Landry; Dr. Jovanni Acosta DO ~ Sports Team Manager: Signed [facility] Work Phone: 10-23-2024 Progress note [facility] 10-23-2024 Evaluation note Diagnosis Onset Date Resolution Iron deficiency anemia refractory to iron therapy resolved October 23, 2 025 9:38am Neutrophilic leukocytosis resolved October 23, 025 9:38am [facility] Work Phone: 1(946) 633-839109-08-2025 Progress note Author Gucci Hickey [facility] Note Date/Time October 23, 2024 11:43am [facility] [place] [address] OFFICE VISIT Date of Service: 10/23/24 1033 MR#: [id number] Acct: [id number] Name: SANTIAGO ZURITA Rep #: [id number] : 1945 From: Gucci Hickey MD Age/Sex: 79/F Location: [facility] Status: Signed HPI Subjective Date of Service 10/23/24 Chief Complaint F/u for leukocytosis and Anemia. History of Present Illness 79-year-old woman was found to have persistent anemia and leukocytosis so referred for further evaluation and management. She reported that she had irondeficiency anemia for many many years, took iron pills but was never compliant because of constipation. She denied weight loss, fever, night sweats or hematochezia/hematemesis. She received IV iron infusion with Injectafer on 06/04/2022 and 06/11/2022 which normalized the Iron profile. On observation. Comes for follow up. Using a walker to ambulate. [facility] Medical History Secondary hyperparathyroidism Osteoporosis Lumbar spinal stenosis Vitamin D deficiency Fuchs' corneal dystrophy Macular degeneration of both eyes Abnormal mammogram Sensorineural hearing loss (SNHL) of right ear IBS (irritable bowel syndrome) Prinzmetal angina Iron deficiency anemia Fatty liver Leukocytosis Primary hyperparathyroidism Spondylolisthesis at L4-L5 level Lumbar stenosis with neurogenic claudication DDD (degenerative disc disease), lumbar Chest pain Peripheral neuropathy Hypothyroidism Essential hypertension Preop cardiovascular exam GERD (gastroesophageal reflux disease) Abnormal mammogram of right breast Depression with anxiety Arthritis History of back problems Diabetes Thyroid disease Acute respiratory failure with hypoxia URI (upper respiratory infection) Surgical History History of excision of pilonidal cyst History of arthroscopic knee surgery History of hernia repair History of bilateral cataract extraction History of tonsillectomy History of cholecystectomy History of bunionectomy of both great toes History of total thyroidectomy H/O abdominal hysterectomy Family History Mother Breast cancer Heart disease Alzheimer's disease Sister Breast cancer Thyroid disorder Grandmother Breast cancer Seizures Uncle Diabetes Father Hypertension Ruptured aortic aneurysm Social History Smoking Status: Never smoker alcohol intake: never substance use type: does not use Intake Vital Signs 12/28/23 13:43 10/23/24 10:34 Height 5 ft 3 in 5 ft 3 in Weight: 84.623 kg BMI 33.0 BP 117/73 Blood Pressure Location Lt brachial Position Sitting Respiration 18 Pulse 71 Pulse Source Monitor Temp 97 F L Temperature Source Temporal Artery Pulse Oximetry (%) 95 Oxygen Delivery Method room air Intake Accompanied by: Self Is patient in pain?: Yes (right rib) Pain scale (1-10): 4 Allergies bee venom protein (honey bee) Allergy (Severe, Verified 10/23/24 10:47) Anaphylaxis prednisone Allergy (Intermediate, Verified 10/23/24 10:47) Itching,hives atorvastatin Allergy (Verified 10/23/24 10:47) NEEDS FOLLOW-UP codeine Allergy (Verified 10/23/24 10:47) Agitation hydrocortisone (From Cortizone-10) Allergy (Verified 10/23/24 10:47) NEEDS FOLLOW-UP Penicillins Allergy (Verified 10/23/24 10:47) NEEDS FOLLOW-UP prednisolone Allergy (Verified 10/23/24 10:47) Hives Sulfa (Sulfonamide Antibiotics) Allergy (Verified 10/23/24 10:47) Hives Medications ?Medication ?Instructions ?Recorded ?Confirmed ?Type diltiazem HCl 300 mg capsule,24 300 mg PO QHS heart ra te/bp 12/15/13 10/23/24 History hr,extended release levothyroxine 150 mcg tablet 150 mcg PO DAILY thyroid 12/15/13 10/23/24 History metformin 500 mg tablet 1,000 mg PO BIDCM blood suga r 07/25/16 10/23/24 History glimepiride 4 mg tablet 4 mg PO BID blood sugar 12/0 04/0510/23/24 History lisinopril 5 mg tablet 5 mg PO QHS blood pressure 1 03/19/18 10/23/24 History esomeprazole magnesium 40 mg 40 mg PO DAILY 07/31/19 0 10/23/24 History capsule,delayed release gabapentin 100 mg capsule 100 mg PO BID nerve pain 10/23/24 History sertraline 100 mg tablet 100 mg PO DAILY mood 2 0 10/23/24 History Madelynophandrew,B.animalis 10 1 ea PO DAILY 10/23/24 History billion cell capsule mecobalamin (vitamin B12) 500 mcg mcg PO .QOD 10/26/22 10/23/24 History chewable tablet denosumab 60 mg/mL subcutaneous 60 mg subcut [id number] #1 mL 12/24/22 10/23/24 Rx syringe (Prolia) cholecalciferol (vitamin D3) 50 50 mcg PO DAILY 10/23/24 History mcg (2,000 unit) capsule ezetimibe 10 mg tablet 10 mg PO QDAY 10/23/2410/23 History tramadol 50 mg tablet 25 - 50 mg PO TID PRN severe pain 10/23/24 10/23/24 History Have you fallen in the past year?: Yes Central Venous Access Central Venous Access: No Laboratory Tests 06/01/22 07/27/22 10/26/22 09:47 14:37 14:15 WBC 12.0 H 11.8 H 12.1 H Hgb 10.9 L 14.3 14.6 Hct 41.5 46.3 44.8 Plt Count 238 284 293 Absolute Neuts (auto) 7.9 H 6.5 6.6 Absolute Lymphs (auto) 3.96 ESR Sodium 138 Potassium 4.0 Chloride 108 H Carbon Dioxide 27.0 BUN 14 Creatinine 0.67 Glucose 141 H Calcium 10.4 H Phosphorus 3.3 Magnesium 1.6 Iron 23 L 87 TIBC 421 Iron Saturation 5.5 L 28.3 Ferritin 7 L 185 Unsaturated IBC Total Bilirubin 0.30 AST 14 L ALT 24 Alkaline Phosphatase 83 Lactate Dehydrogenase 123 Total Protein 7.3 Albumin 3.4 Globulin 3.9 C-React Prot Ext Range Vitamin B12 1460 H 10/28/23 10/23/24 12:54 09:42 WBC 11.5 H 10.0 Hgb 14.1 14.9 Hct 43.9 46.1 Plt Count 262 263 Absolute Neuts (auto) 4.8 Absolute Lymphs (auto) 3.49 ESR 19 Sodium 140 Potassium 4.3 Chloride 103 Carbon Dioxide 23.6 BUN 12 Creatinine Glucose 156 H Calcium 10.5 Phosphorus Magnesium Iron 86 72 TIBC 286 303 Iron Saturation 30.1 23.8 Ferritin 131 87 Unsaturated IBC 231 Total Bilirubin 0.33 AST 22 ALT 26 Alkaline Phosphatase 65 Lactate Dehydrogenase 142 Total Protein 6.9 Albumin 4.1 Globulin 2.8 C-React Prot Ext Range < 3.00 Vitamin B12 Exam Physical Exam Const alert, oriented x3 and no apparent distress Coding Level of Care Code Off vis,est,level 3 Exam Problem Focused Diagnoses Neutrophilic leukocytosis D72.9 Iron deficiency anemia refractory to iron therapy D50.8 Assessment and Plan Assessment and Plan (1) Neutrophilic leukocytosis: Status: Resolved Plan: To continue observation. (2) Iron deficiency anemia refractory to iron therapy: Status: Resolved Comment: She was given oral Iron 2 years ago but was non compliant with it because of constipation. Got IV replacement in 2022. Iron profile is normal today. Discussed findings with Pt. Plan: To continue observation. She does not want to take Oral iron because of constipation. To monitor Iron profile. Follow up with PCP and referred if new problems arise. Clinical Quality Measures Falls Risk Screening/Assistive Devices Have you fallen in the past year?: Yes 10/23/24 1143 <Electronically signed by Gucci Castro> Date _ Gucci Hickey MD Cosigner Signature: Date (if applicable) CC: Dr. Jovanni Acosta, DO ~ [facility] [employer] [facility] Work Phone: 1(502) 848-151008-20-2025 Radiology Diagnostic study note [facility] Imaging Services [address] [place] [address] Ribs Uni Min 3V w/PA Chest MR#: [id number] Acct: [id number] Name: CAESAR ZURITANA TESSIE Rep #: [id number] : 1945 F 79 From: Glenn Kerr MD PCP: Dr. Jovanni Acosta DO Status: REG CLI Study:Ribs Uni Min 3V w/PA Chest Date of Exam : 10/02/24 Exam# [id number] Ordering Dr: Jovanni Acosta DO PROCEDURE: RIBS UNI MIN 3V W/PA CHEST 10/02/2024 REASON FOR EXAM: RIB PAIN, FALL Right-sided rib pain. TECHNIQUE: Multiple views of the right ribs were obtained. COMPARISON: Prior study dated June 19, 2024. FINDINGS: Healing fracture of the anterior right 9th rib. The lungs are clear. Osteoarthritis of the right shoulder joint as well as calcific tendinitis. Degenerative changes of the thoracic vertebrae. RAD/Ribs Uni Min 3V w/PA Chest IMPRESSION: Healing fracture of the right 9th rib. No acute fracture is seen. Osteoarthritis of the right shoulder joint. Degenerative changes of the thoracic spine. Reading Location: [facility] CC: Dr. Jovanni Acosta DO ~ Sports Team Manager: Signed [facility]05-27-2025 Evaluation note* Diagnosis Onset Date Resolution Status Admit Date Osteoporosis chronic July 11 12:57pm [facility] Work Phone: 1(162) 919-562305-27-2025 Evaluation note* Diagnosis Onset Date Resolution Status Admit Date Osteoporosis chronic July 11 12:57pm Iron deficiency anemia refractory to iron therapy resolved 2024 9:38am Neutrophilic leukocytosis resolved October 23, 2024 9:38am [facility] Work Phone: 1(735) 547-822405-10-2025 Radiology Diagnostic study note [facility] Imaging Services [address] [place] [address] Abdomen Limited MR#: [id number] Acct: [id number] Name: SANTIAGO ZURITA Rep #: [id number] : 1945 F 79 From: Joel Churchill MD PCP: Dr. Jovanni Acosta DO Status: REG CLI Study:Abdomen Limited Date of Exam: 11/09 Exam# [id number] Ordering Dr: Jovanni Acosta DO PROCEDURE: ABDOMEN LIMITED 06/23/2024 REASON FOR EXAM: R10.11 TECHNIQUE: Complete abdominal ultrasound cabrera-scale images with color doppler. PATIENT PREPARATION: Per protocol FINDINGS: The visualized pancreas appears within limits without evidence of pancreatic ductal dilation. The liver is enlarged measuring 19.8 cm and appears diffusely increased in echogenicity which can be seen with hepatic steatosis or other hepatocellular disease. No evidence of intrahepatic biliary ductal dilation. Hepatic colorflow is present with flow in the portal vein hepatopetal as expected. Status post cholecystectomy. CBD 5 mm The right kidney measures 10.9 x 5.2 x 4.4 cm with a cortical thickness of 1.5 cm. No right hydronephrosis, renal stones or perinephric edema seen. No free fluid seen. US/Abdomen Limited IMPRESSION: The liver is enlarged measuring 19.8 cm and appears diffusely increased in echogenicity which can be seen with hepatic steatosis or other hepatocellular disease. Status post cholecystectomy. No free fluid seen. Reading Location: [id number] CC: Dr. Jovanni Acosta DO ~ Sports Team Manager: Signed [facility]05-07-2025 Radiology Diagnostic study note [facility] Imaging Services [address] [place] [address] [id number] Thoracic Spine 3 Views MR#: [id number] Acct: [id number] Name: SANTIAGO ZURITA Rep #: [id number] : 1945 F 79 From: Samantha Conway MD PCP: Dr. Jovanni Acosta DO Status: REG CLI Study:Thoracic Spine 3 Views Date of Exam: 06/19/24 Exam# [id number] Ordering Dr: Abdirahman Alvarez MD PROCEDURE: THORACIC SPINE 3 VIEWS 06/19/2024 REASON FOR EXAM: FALL,PAIN TECHNIQUE: Three views of the thoracic spine COMPARISON: None FINDINGS: Thoracic kyphosis is maintained. Vertebral body heights and disc spaces are within normal limits. Diffuse osteopenia. Pedicles are intact. Mild multilevel degenerative changes. Superimposed multilevel anterior bridging osteophytes, compatible with DISH. No acute fracture or traumatic subluxation. Partially imaged lumbar fusion. Imaged lung souza are clear. RAD/Thoracic Spine 3 Views IMPRESSION: No acute findings. Mild multilevel degenerative changes. Superimposed findings compatible with DISH. Reading Location: [facility] CC: Dr. Abdirahman Alvarez MD; Dr. Jovanni Acosta DO ~ Sports Team Manager: Signed [facility]05-06-2025 Radiology Diagnostic study note [facility] Imaging Services [address] [place], [place] [id number] Ribs Unil 2V No CXR MR#: [id number] Acct: [id number] Name: YUDITHSANTIAGO KURTZ Rep #: [id number] : 1945 F 79 From: Joel Churchill MD PCP: Dr. Jovanni Acosta DO Status: REG CLI Study:Ribs Unil 2V No CXR Date of Exam: 06/19/24 Exam# [id number] Ordering Dr: Abdirahman Alvarez MD EXAM: DX ribs unilateral two views no chest x-ray CLINICAL HISTORY: Status post fall with ribcage pain COMPARISON: 07/14/2023 TECHNIQUE: Four views right ribs FINDINGS: Acute appearing fracture of the anterior right 9th rib. RAD/Ribs Unil 2V No CXR IMPRESSION: Acute appearing fracture of the anterior right 9th rib. Reading Location: [facility] CC: Dr. Abdirahman Alvarez MD; Dr. Jovanni Acosta DO ~ Sports Team Manager: Signed [facility]05-06-2025 Radiology Diagnostic study note [facility] Imaging Services [address] [place] [address] Chest PA and Lateral MR#: [id number] Acct: [id number] Name: SANTIAGO ZURITA Rep #: [id number] : 1945 F 79 From: Joel Churchill MD PCP: Dr. Jovanni Karla, DO Status: REG CLI Study:Chest PA and Lateral Date of Exam: 06/19/24 Exam# [id number] Ordering Dr: Abdirahman Alvarez MD PROCEDURE: CHEST PA AND LATERAL 06/19/2024 REASON FOR EXAM: PAIN, FALL TECHNIQUE: Frontal and lateral views of the chest. COMPARISON: 07/14/2023 FINDINGS: The lungs appear clear. No pneumothorax or pleural effusion identified. The cardiac and mediastinalcontours appear within limits. RAD/Chest PA and Lateral IMPRESSION: No evidence of acute process. Reading Location: [id number] CC: Dr. Abdirahman Alvarez MD; Dr. Jovanni Acosta DO ~ Sports Team Manager: Signed [facility] note[facility] assessment information available [facility] Work Phone: Evaluation note* Diagnosis Onset Date Resolution Status Neutrophilic leukocytosis ac chinik Anemia chronic Iron deficiency anemia refractory to iron therapy [facility] Work Phone: Evaluation note* Diagnosis Onset Date Resolution Status Iron deficiency anemia refractory to iron therapy chronic Anemia resolved Neutrophilic leukocytosis re solved Secondary hyperparathyroidism acute Osteoporosis chronic Iron deficiency anemia refractory to iron therapy chronic Anemia resolved Neutrophilic leukocytosis re solved [facility] Work Phone: Evaluation note* Diagnosis Onset Date Resolution Status Secondary hyperparathyroidism acute Osteoporosis chronic Iron deficiency anemia refractory to iron therapy chronic Anemia resolved Neutrophilic leukocytosis re solved [facility] Work Phone: Reason for referral (narrative)No reason for referral information availableThe [facility] Work Phone: Chief Complaint and Reason for Visit Chief Complaint SP Chief Complaint SCREENING Chief Complaint SCREENING CERVICAL SPINE Chief Complaint NEW PT - LEUKOCYTOSI S HPERPARATHYROIDISM MED ONC Reason for Visit Neutrophilic leukocy tosis Anemia Iron deficiency anemia refractory to iron therapy Chief Complaint 8WKS LABS Osteoporosis SCREENING 3MO LABS MED ONC Reason for Visit Iron deficiency anem ia refractory to iron therapy Anemia Neutrophilic leukocytosis Secondary hyperparathyroidism Osteoporosis Iron deficiency anemia refractory to iron therapy Anemia Neutrophilic leukocytosis Chief Complaint Osteoporosis SCREENING 3MO LABS MED ONC Reason for Visit Secondary hyperparat hyroidism Osteoporosis Iron deficiency anemia refractory to iron therapy Anemia Neutrophilic leukocytosis Chief Complaint Osteoporosis SCREENING 3MO LABS MED ONC PROLIA Reason for Visit Secondary hyperparat hyroidism Osteoporosis Iron deficiency anemia refractory to iron therapy Anemia Neutrophilic leukocytosis Chief Complaint Admit Date RIGHT HIP AND LUMBAR SPINE March 2:56pm FALL- PAIN- CHEST, RIBS, THORACIC SPINE June 19, 2024 10:32am RECENT FALL, R 9TH RIB FRACTURE June 23, 2024 9:13am Chief Complaint Admit Date RIGHT HIP AND LUMBAR SPINE March 2:56pm FALL- PAIN- CHEST, RIBS, THORACIC SPINE June 19, 2024 10:32am RECENT FALL, R 9TH RIB FRACTURE June 23, 2024 9:13am Prolia - B&B July 11, 2024 12:57 pm Chief Complaint Admit Date FALL- PAIN- CHEST, RIBS, THORACIC SPINE June 19, 2024 10:32am RECENT FALL, R 9TH RIB FRACTURE June 23, 2024 9:13am Prolia - B&B July 11, 2024 12:57 pm R RIBS October 02, 2024 1: 42pm Reason for Visit Admit Date Osteoporosis July 11, 2024 12:57 pm Chief Complaint Admit Date Prolia - B&B July 11, 2024 12:57 pm R RIBS October 02, 2024 1: 42pm 1YR LABS October 23, 2024 9:38am MED ONC October 23, 2024 9:45am Reason for Visit Admit Date Osteoporosis July 11, 2024 12:57 pm Iron deficiency anemia refractory to iro n therapy October 23, 2024 9:38am Neutrophilic leukocytosis October 23, 2024 9:38am Chief Complaint Admit Date R RIBS October 02, 2024 1: 42pm 1YR LABS October 23, 2024 9:38am MED ONC October 23, 2024 9:45am RULE OUT PNEUMONIA November 07, 2024 2:10pm Reason for Visit Admit Date Iron deficiency anemia refractory to iro n therapy October 23, 2024 9:38am Neutrophilic leukocytosis October 23, 2024 9:38am Family History No Family History Records Found Relationship Condition Age at Onset Recorded Date/T monique mother Malignant neoplasm of breast Unknown Cardiac disease Unknown Alzheimer's disease Unknown sister Malignant neoplasm of breast Unknown Disorder of thyroid Unknown grandmother Malignant neoplasm of breast Unknown Seizure Unknown uncle Diabetes mellitus Unknown father Hypertension Unknown Ruptured aortic aneurysm Unknown Advance Directives No Advanced Directives Records Found Advance Directive Response Recorded Date/ Time Advance Directives Yes February 22, 2014 11:10am Living Will Yes April 02 021 3:43pm Power of Legal Instruments Examiner Yes April 02, 2020 3:43pm Advance Directive Response Recorded Date/ Time Advance Directives Yes February 22, 2014 10:10am Living Will Yes April 02 021 2:43pm Power of Legal Instruments Examiner Yes April 02, 2020 2:43pm Advance Directive Response Recorded Date/ Time Advance Directives Yes February 22, 2014 11:10am Advance Directive Response Recorded Date/ Time Living Will Yes April 02 3:43pm Do you have a Healthcare Power of Legal Instruments Examiner? Yes April 02, 2020 3:43pm Advance Directives Yes February 22, 2014 11:10am Summary Purpose Additional Source Comments Goals (unrecognized section and content) Goals may be documented in a n alternate sectionGoals may be documented in an alternate sectionGoals may be documented in an alternate sectionGoals may be documented in an alternate sectionGoals may be documented in an alternate sectionGoals may be documented in an alternate sectionGoals may be documented in an alternate sectionGoals may be documented in an alternate sectionGoals may be documented in an alternate sectionGoals may be documented in an alternate sectionGoals may be documented in an alternate sectionGoals may be documented in an alternate sectionGoals may be documented in an alternate sectionGoals may be documented in an alternate sectionGoals may be documented in an alternate section Care Teams (unrecognized sec tion and content) Team Status: Active Member Role Status Dates Dr. Jovanni Acosta , DO Family Provider Active Dr. Jovanni Acosta , DO Primary Care Provider Active Team Status: Inactive Member Role Status Dates Dr. Jovanni Acosta , DO Primary Care Prov ider, Attending Provider, Referring Provider Active Team Status: Inactive Member Role Status Dates Dr. Jovanni Acosta , DO Primary Care Provider, Referrin g Provider Active Dr. Gucci Hickey MD Attending Provider Active Team Status: Active Member Role Status Dates Dr. Jovanni Acosta , DO Primary Care Provider Active Dr. Gucci Hickey MD Attending Provider, Referring Pro vider Active Team Status: Inactive Member Role Status Dates Dr. Jovanni Acosta , DO Primary Care Provider, Referrin g Provider Active Dr. Sai Villalba MD Attending Provider Active Team Status: Inactive Member Role Status Dates Dr. Jovanni Acosta DO Primary Care Provider Active Dr. Sai Villalba MD Attending Provider, Referring Provi charisse Active Team Status: Active Member Role Status Dates Dr. Jovanni Acosta DO Primary Care Provider Active Team Status: Inactive Member Role Status Dates Dr. Jovanni Acosta DO Primary Care Provider Active Start: April 04, 2024 End: April 04, 2024 REINFORCEMENT MAKER. Sally Vazquez Attending Provider Active Star t: April 04, 2024 End: April 04, 2024 REINFORCEMENT MAKER. Sally Vazquez Referring Provider Active Star t: April 04, 2024 End: April 04, 2024 Team Status: Inactive Member Role Status Dates Dr. Jovanni Acosta DO Primary Care Provider Active Start: June 19, 2024 End: June 19, 2024 Dr. Abdirahman Alvarez MD Attending Provider Active Start: June 19, 2024 End: June 19, 2024 Dr. Abdirahman Alvarez MD Referring Provider Active Start: June 19, 2024 End: June 19, 2024 Team Status: Active Member Role Status Dates Dr. Jovanni Acosta DO Primary Care Provider Active Start: June 23, 2024 Dr. Jovanni Acosta DO Attending Provider Active Start: June 23, 2024 Dr. Jovanni Acosta DO Referring Provider Active Start: June 23, 2024 Team Status: Inactive Member Role Status Dates Dr. Jovanni Acosta DO Primary Care Provider Active Start: June 23, 2024 End: June 23, 2024 Dr. Jovanni Acosta DO Attending Provider Active Start: June 23, 2024 End: June 23, 2024 Dr. Jovanni Acosta DO Referring Provider Active Start: June 23, 2024 End: June 23, 2024 Team Status: Inactive Member Role Status Dates Dr. Jovanni Acosta DO Primary Care Provider Active Start: July 11, 2024 End: July 11, 2024 Dr. Jovanni Acosta DO Referring Provider Active Start: July 11, 2024 End: July 11, 2024 Dr. Sai Villalba MD Attending Provider Active Sta rt: July 11, 2024 End: July 11, 2024 Team Status: Active Member Role/Relationship Status Dates Dr. Jovanni Acosta DO Primary Care Provider Active Team Status: Inactive Member Role/Relationship Status Dates Dr. Jovanni Acosta DO Primary Care Provider Active Start: June 19, 2024 End: June 19, 2024 Dr. Abdirahman Alvarez MD Attending Provider Active Start: June 19, 2024 End: June 19, 2024 Dr. Abdirahman Alvarez MD Referring Provider Active Start: June 19, 2024 End: June 19, 2024 Team Status: Inactive Member Role/Relationship Status Dates Dr. Jovanni Acosta DO Primary Care Provider Active Start: June 23, 2024 End: June 23, 2024 Dr. Jovanni Acosta DO Attending Provider Active Start: June 23, 2024 End: June 23, 2024 Dr. Jovanni Acosta DO Referring Provider Active Start: June 23, 2024 End: June 23, 2024 Team Status: Inactive Member Role/Relationship Status Dates Dr. Jovanni Acosta DO Primary Care Provider Active Start: July 11, 2024 End: July 11, 2024 Dr. Jovanni Acosta DO Referring Provider Active Start: July 11, 2024 End: July 11, 2024 Dr. Sai Villalba MD Attending Provider Active Sta rt: July 11, 2024 End: July 11, 2024 Team Status: Inactive Member Role/Relationship Status Dates Dr. Jovanni Acosta DO Primary Care Provider Active Start: October 02, 2024 End: October 02, 2024 Dr. Jovanni Acosta DO Attending Provider Active Start: October 02, 2024 End: October 02, 2024 Dr. Jovanni Acosta DO Referring Provider Active Start: October 02, 2024 End: October 02, 2024 Team Status: Inactive Member Role/Relationship Status Dates Dr. Jovanni Acosta DO Primary Care Provider Active Start: July 11, 2024 End: July 11, 2024 Dr. Jovanni Acosta DO Referring Provider Active Start: July 11, 2024 End: July 11, 2024 Dr. Sai Villalba MD Attending Provider Active Sta rt: July 11, 2024 End: July 11, 2024 Team Status: Inactive Member Role/Relationship Status Dates Dr. Jovanni Acosta DO Primary Care Provider Active Start: October 02, 2024 End: October 02, 2024 Dr. Jovanni Acosta DO Attending Provider Active Start: October 02, 2024 End: October 02, 2024 Dr. Jovanni Acosta DO Referring Provider Active Start: October 02, 2024 End: October 02, 2024 Team Status: Inactive Member Role/Relationship Status Dates Dr. Jovanni Acosta DO Primary Care Provider Active Start: October 23, 2024 End: October 23, 2024 Dr. Jovanni Acosta DO Referring Provider Active Start: October 23, 2024 End: October 23, 2024 Dr. Gucci Hickey MD Attending Provider Active S tart: October 23, 2024 End: October 23, 2024 Team Status: Active Member Role/Relationship Status Dates Dr. Jovanni Acosta DO Primary Care Provider Active Start: October 23, 2024 Dr. Gucci Hickey MD Attending Provider Active S tart: October 23, 2024 Dr. Gucci Hickey MD Referring Provider Active S tart: October 23, 2024 Team Status: Active Member Role/Relationship Status Dates Dr. Jovanni Acosta DO Primary care physician Active Team Status: Inactive Member Role/Relationship Status Dates Dr. Jovanni Acosta DO Primary care physician Active Start: October 02, 2024 End: October 02, 2024 Dr. Jovanni Acosta DO Attending physician Active Start: October 02, 2024 End: October 02, 2024 Dr. Jovanni Acosta DO Referring Provider Active Start: October 02, 2024 End: October 02, 2024 Team Status: Inactive Member Role/Relationship Status Dates Dr. Jovanni Acosta DO Primary care physician Active Start: October 23, 2024 End: October 23, 2024 Dr. Jovanni Acosta DO Referring Provider Active Start: October 23, 2024 End: October 23, 2024 Dr. Gucci Hickey MD Attending physician Active Start: October 23, 2024 End: October 23, 2024 Team Status: Active Member Role/Relationship Status Dates Dr. Jovanni Acosta DO Primary care physician Active Start: October 23, 2024 Dr. Gucci Hickey MD Attending physician Active Start: October 23, 2024 Dr. Gucci Hickey MD Referring Provider Active S tart: October 23, 2024 Team Status: Inactive Member Role/Relationship Status Dates Dr. Jovanni Karla , DO Primary care physician Active Start: November 07, 2024 End: November 07, 2024 RAMON Chairez Attending physician Active S tart: November 07, 2024 End: November 07, 2024 RAMON Chairez Referring Provider Active St art: November 07, 2024 End: November 07, 2024 INFORMATION SOURCE (unrecogn ized section and content) DATE CREATED AUTHOR 11/20/2024 [facility] FOR RECORDS PERTAINING TO PATIENTS WHO ARE OR HAVE BEEN ENROLLED IN A CHEMICAL DEPENDENCY/SUBSTANCEABUSE PROGRAM, SOME INFORMATION MAY BE OMITTED. This clinical summary was aggregated from multiple sources. Caution should be exercised in using it in the provision of clinical care. This summary normalizes information from multiple sources, and as a consequence, information in this document may materially change the coding, format and clinical context of patient data. In addition, data may be omitted in some cases. CLINICAL DECISIONS SHOULD BE BASED ON THE PRIMARY CLINICAL RECORDS. [facility] [employer] [facility]. provides no warranty or guarantee of the accuracy or [phone] in [phone] [id number]
== END | disposition home or self-care (01) ==
LOC: OPBI 12:40
PROVIDERS: PCP Family Medicine; Referring Provider Family Medicine; Visit Provider Family Medicine
DX: Z12.31 Encounter for screening mammogram for malignant neoplasm of breast (principal)
CPT/HCPCS: 77063; 77067

== ENCOUNTER → 2024-12-18 | Outpatient (CLI) | payer MEDICARE, OTHER, SELFPAY ==
[2024-12-18 12:59] LABS: PTHIN 89 pg/mL (11-61)
[2024-12-18 13:07] LABS: Creatinine, Urine (random) 85.90 mg/dL (28.00-217.00); Microalbumin,Random Urine < 12.0 mg/L (<20 mg/L)
[2024-12-18 13:17] LABS: Cholesterol 180 mg/dL (<=200); Low Density Lipoprotein Calc. 92 mg/dL; Triglycerides 227 mg/dL; Very Low Density Lipoprotein 45 mg/dL (5-40); Vitamin D,25 Hydroxy 32.2 ng/mL (30-100); cholesterol:hdl ratio screen 3.65
== END | disposition home or self-care (01) ==
LOC: MTLAB 10:10
PROVIDERS: PCP Family Medicine; Referring Provider Family Medicine; Visit Provider Family Medicine
DX: E11.9 Type 2 diabetes mellitus without complications (principal); E21.3 Hyperparathyroidism, unspecified; E03.9 Hypothyroidism, unspecified
CPT/HCPCS: 36415; 80061; 82043; 82306; 82570; 83036; 83970; 84439; 84443